=== PATIENT | male | born 1935 | race Caucasian/White ===

== ENCOUNTER 2024-03-02 13:45 | Inpatient (IN) ==
[2024-03-02 14:33] LABS: Basophils # (auto) 0.04 K/uL (0.00-0.20); Basophils % (auto) 0.5 %; Eosinophils # (auto) 0.16 K/uL (0.00-0.50); Eosinophils % (auto) 2.1 %; Hematocrit (blood only) 39.2 % (42.0-52.0); Hemoglobin 12.8 g/dl (14.0-18.0); Immature Granulocytes # (auto) 0.02 K/uL (0.01-0.20); Immature Granulocytes % (auto) 0.3 %; Lymphocytes % (auto) 21.9 %; Mean Corpuscular Hemoglobin 30.3 pg (25.0-34.0); Mean Corpuscular Hgb Conc 32.7 g/dL (32.0-36.0); Mean Corpuscular Volume 92.9 fL (80.0-100.0); Mean Platelet Volume 11.8 fL (9.4-12.4); Monocytes # (auto) 0.55 K/uL (0.11-0.59); Monocytes % (auto) 7.1 %; Neutrophils # (auto) 5.29 K/uL (1.40-6.50); Neutrophils % (auto) 68.1 %; Platelet Count 154 K/uL (130-400); RDW Coefficient of Variation 14.7 % (11.5-14.5); RDW Standard Deviation 50.2 fL (36.4-46.3); Red Blood Count 4.22 M/uL (4.70-6.10); White Blood Count 7.76 K/ul (4.8-10.8)
[2024-03-02 14:47] LABS: Partial Thromboplastin Ratio 0.9; Partial Thromboplastin Time 24 Seconds (21-31); Prothrombin Time 10.9 Seconds (9.0-12.0)
[2024-03-02] MEDS: SODIUM CHLORIDE 0.9% 500 ML IV ONE (14:49)
[2024-03-02 14:55] LABS: Alanine Aminotransferase 17 U/L (7-52); Albumin Globulin Ratio 1.5 (0.9-2); Alkaline Phosphatase 98 U/L (34-104); Anion Gap 7 (3-11); Aspartate Aminotransferase 19 U/L (13-39); BUN Creatinine Ratio 26.5 (10-20); Bilirubin,Total 0.7 mg/dl (0.2-1.0); Blood Urea Nitrogen 36 mg/dl (6-23); Calcium 9.5 mg/dl (8.6-10.3); Carbon Dioxide 27 mmol/L (21-32); Chloride 104 mmol/L (98-107); Est GFR (African American) 53.8 ml/min; Est GFR (Non-African American) 46.5 ml/min; Globulin 2.6 gm/dl (2.5-4.0); Glucose 95 mg/dl (70-99(Fasting)); Potassium 4.5 mmol/L (3.5-5.1); Sodium 138 mmol/L (136-145); Total Protein 6.6 gm/dl (6.0-8.3)
[2024-03-02 15:00] LABS: Troponin I High Sensitivity 17.7 pg/ml (0-20)
--- NOTE | 2024-03-02 15:02 | XRay Report ---
XR chest 1V not portable HISTORY: Chest pain, nonspecific COMPARISON: Chest 03/12/2023. FINDINGS: No pneumothorax. No pleural effusions. There are low lung volumes. The heart remains mildly enlarged. Left-sided pacemaker poststernotomy changes, and a cardiac valve prosthesis are again note d. There is a tortuous and calcified thoracic aorta. There is mild central pulmonary vascular congest ion without overt edema. A few bibasilar linear densities favor subsegmental atelectasis. Otherwise, no focal lung consolidations to suggest a pneumonia. There are old bilateral rib fractures. IMPRESSION: Cardiomegaly and mild congestive change. ACT 112: Negative or not required by law. Electronically signed by: Jesus Lopez M.D. 03/02/2024 3:01 PM
[2024-03-02] MEDS: OPTIRAY 320 125ml IV ONE (15:14)
[2024-03-02 15:39] LABS: Appearance Urine Clear (Clear); Bilirubin Urine Negative (Negative); Blood Urine Negative (Negative); Color Urine Yellow; Glucose Urine UA Negative (Negative); Ketones Urine Negative (Negative); Leukocyte Esterase Urine Negative (Negative); Nitrite Urine Negative (Negative); Protein Urine Negative (Negative); Specific Gravity Urine 1.022 (1.000-1.030); Urobilinogen Urine Negative (Negative); pH Urine 5.5 (4.5-7.5)
--- NOTE | 2024-03-02 15:44 | CT Scan Report ---
CT ANGIOGRAPHY OF THE CHEST, PULMONARY EMBOLUS PROTOCOL CLINICAL HISTORY: Shortness of breath. Back pain. COMPARISON STUDY: Chest CT February 12, 2022. Chest radiograph performed earlier today. TECHNIQUE: Following IV administration of 118 mL of Optiray, helical axial images of the chest were o btained utilizing the pulmonary embolus protocol. Maximal intensity projections and sagittal and cor onal reformats were viewed on an independent 3D workstation. IV contrast was administered without co mplication. Automated exposure control was utilized for the study. A dose lowering technique was ut ilized adhering to the principles of ALARA. CT DOSE: 846.87 mGy.cm FINDINGS: No pulmonary emboli are identified. Moderate cardiomegaly and extensive coronary artery ca lcification are again noted. There are mediastinal wires and postoperative findings from bypass graft ing as well as a aortic valve prosthesis. 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 Opacification of the thoracic aorta is suboptimal however there is no de finite evidence for dissection. There is no pneumothorax or pleural effusion. There is no consolidati on to suggest pneumonia. There are no suspicious pulmonary nodules. Old bilateral rib fractures are p resent. There are no acute thoracic spine fractures. Visualized portions of the upper abdomen are unr emarkable. IMPRESSION: 1. No pulmonary emboli identified. 2. No acute intrathoracic findings. 3. 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 Thoracic aortic opacification suboptimal b ut no dissection identified. ACT 112: Negative or not required by law. Electronically signed by: Jesse Rock M.D. 03/02/2024 3:42 PM
--- NOTE | 2024-03-02 15:57 | Emergency Department Note ---
Impression & Plan New onset a-fib, SOB (shortness of breath), Elevated brain natriuretic peptide (BNP) level ED Provider Note NAME: MONY Kami MENA AGE: 88 SEX: M : 1935 ARRIVES VIA: Walk-In INFORMANT: Patient ED PROVIDER(S): Salazar Vizcarra DO CHIEF COMPLAINT: shortness of breath HPI: Patient is an 88-year-old male with a past medical history of a CABG, TAVR who presents to the ER for shortness of breath. He notes that shortness of breath has been getting worse over the past 4 days. He intermittently gets pain between his scapulas and his upper back. He notes this last for a minute or 2. He denies any chest pain at that time. It improves with twisting turning and bending. He notes stretching also helps it. Family who is present at bedside provides additional history and notes his blood pressure has been in the low 90s to 80s at home intermittently. They been working with his metoprolol and initially decreased the dose and then eventually stopped it. He restarted as his heart rate started racing 2 days ago. He did take a dose today and was only taking half dose at 12.5. He is having trouble controlling his rate and managing his pressures. He denies any dysuria urgency or frequency. No fevers. No other exacerbating or remitting factors. ADDITIONAL HISTORY OBTAINED: Per HPI Chronic Medical/Social Conditions Affecting Care: Per HPI PAST MEDICAL HISTORY:See Below PAST SURGICAL HISTORY:See Below FAMILY HISTORY:See Below SOCIAL HISTORY:See Below HOME MEDICATIONS:See Below ALLERGIES:See Below VITALS:See Below PHYSICAL EXAMINATION: GENERAL: Sitting up in bed, alert, well appearing, well nourished, no distress, non-toxic EYE EXAM: normal conjunctiva. OROPHARYNX: mucous membranes are moist LUNGS: Clear to auscultation. Normal chest wall mechanics HEART: no murmurs, S1 normal and S2 normal ABDOMEN: abdomen soft, non-tender, normo-active bowel sounds, no masses, no rebound or guarding. UPPER EXTREMITIES: upper extremities are grossly normal. LOWER EXTREMITIES: No pitting edema. NEURO EXAM: Normal sensorium, cranial nerves II-XII grossly intact, normal speech, no gross weakness of arms, no gross weakness of legs. MEDICAL DECISION MAKING: Patient is an 88-year-old male with a past medical history of a CABG, TAVR who presents to the ER for the above-stated complaint. IV was established blood was obtained. Labs show no significant leukocytosis or anemia. INR unremarkable. BMP low with LFTs, bilirubin, and troponin was negative. BNP was elevated at 600. UA was clean. Patient was given a bolus of IV fluids while in the ER. EKG does appear to be consistent with new onset A-fib. Rate was fairly controlled with a heart rate in the low 100s to 90s. Do favor this the likely cause of the new onset shortness of breath. Discussed case with the hospitalist for further evaluation management treatment. Consults/Care Managements Discussions: Per MDM Triage Nursing notes reviewed. Limited review of prior medical records performed Vital Signs: reviewed and remarkable for no significant abnormalities Differential diagnosis: Differential diagnoses includes but is not limited to pneumonia, bronchitis, COPD/Asthma exacerbation, pneumothorax, pulmonary embolism, congestive heart failure, acute coronary syndrome ER treatment provided: See below Diagnostics interpreted by me include EKG and cardiac monitoring as listed below: -Cardiac Monitoring: An order was placed for continuous cardiac monitoring. The monitor shows a rate of 101 with sinus rhythm. -ECG: A-fib rate of 111 Left axis No PVCs QTc 470 -Laboratory studies:Interpreted by me as stated above in MDM and shown below. Imaging studies: Xrays: As interpreted by me: Portable AP upright 1 view of the chest shows no focal infiltrate CTs show: CT angio the chest shows no PE Procedures:none Critical Care: None Past Med/Surg History Problem List Elevated brain natriuretic peptide (BNP) level (Acute) New onset a-fib (Acute) Heme positive stool Encounter for colonoscopy due to history of adenomatous colonic polyps Encounter for pre-operative examination Encounter for pre-operative examination Ambulatory dysfunction (Acute) Chest pain (Acute) Dehydration (Acute) Near syncope (Acute) Palpitations (Acute) SOB (shortness of breath) (Acute 09/05/14) DVT prophylaxis Full code status T2DM (type 2 diabetes mellitus) (Chronic) Depression (Chronic) 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; also reconstruction of aortic root and ascending aorta due to Aortic Regurgitation History of radical prostatectomy (Chronic) History of cataract extraction (Chronic) bilt History of colonoscopy with polypectomy (Chronic) 2016 --> due for repeat in 3 years CAD (coronary artery disease), [place] coronary artery (Chronic) s/p CABG ARREDONDO to LAD; Saphenous graft to Circumflex marginal done in 2001 [facility] [place] Prostate CA (Chronic) 2003 HLD (hyperlipidemia) (Chronic) History of heart bypass surgery (Chronic) s/p CABG ARREDONDO to LAD; Saphenous graft to Circumflex marginal done in 2001 [facility] [place] Medical History (Updated 03/02/24 @ 16:23 by Salazar Vizcarra DO) Osteoarthritis Hearing deficit Transient ischemic attack (TIA) shown on MRI's---didn't know he had them, no deficits, no neurologist Hypertension Cardiac murmur Wheezing intermittent--inhaler prn Surgical History 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 History of left inguinal hernia repair History of prostate biopsy malignant History of tooth extraction History of tonsillectomy and adenoidectomy History of cardiac cath x3--last 2013--no stents History of angioplasty 1988 Family History Father Liver cancer Colon cancer Coronary heart disease Myocardial infarction Hypertension Heart disease Brother Coronary heart disease Stroke Heart disease Brother Coronary heart disease Family history of diabetes mellitus Colon cancer Brother Coronary heart disease Other No family history of adverse response to anesthesia No family history of bleeding disorder Social History Smoking Status: Never smoker Tobacco Type: Cigarettes Cigarettes Per Day: 10; Second Hand Exposure: No; Do You Dip or Chew Tobacco: No; Hx Alcohol Use: No Hx Substance Use: No Preferred Language: Thai Communication Ability: Effective Hearing Ability: 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 of 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 Aid 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 Beliefs That Will Affect Care: None marital status: Current Living Situation: Alone current occupational status: retired Feels Safe at Home: Yes Assistive Devices: Denture - Upper, Denture - Lower, Glasses and Hearing Aid - Bilateral Allergies Allergies Allergy/AdvReac Type Severity Reaction Status Date / Time Penicillins Allergy Mild leg Verified 10/21/23 11:47 swelling Home Meds Home Medications Medication Instructions Recorded Confirmed atorvastatin 80 mg tablet 80 mg PO HS 04/27/18 03/02/24 bupropion HCl 150 mg tablet,12 hr 150 mg PO Q12 04/27/18 03/02/24 sustained-release metformin 500 mg tablet 500 mg PO QAM 04/27/18 03/02/24 multivitamin 1 tab PO QAM 04/27/18 03/02/24 albuterol sulfate 90 mcg/actuation 2 puff inhalation Q4 PRN Wheezing 04/03/19 03/02/24 aerosol inhaler (ProAir HFA) diphenhydramine HCl 25 mg capsule 25 mg PO HS PRN Sleep 04/03/19 03/02/24 (Benadryl) furosemide 20 mg tablet 40 mg PO DAILY 04/03/19 03/02/24 aspirin 81 mg chewable tablet 81 mg PO DAILY 02/12/22 03/02/24 (Children's Aspirin) clindamycin HCl 300 mg capsule 600 mg PO ONCE PRN Prophylaxis 02/12/22 03/02/24 cyanocobalamin (vitamin B-12) 1,000 mcg sublingual DAILY 02/12/22 03/02/24 1,000 mcg sublingual tablet metoprolol succinate 25 mg 12.5 mg PO DAILY 02/12/22 03/02/24 tablet,extended release 24 hr iron,carbonyl 65 mg-vitamin C 125 1 tab PO .EVERY OTHER DAY 04/20/22 03/02/24 mg tablet,delayed release (Vitron-C) apixaban 5 mg tablet (Eliquis) 5 mg PO UD 03/02/24 03/02/24 doxycycline hyclate 100 mg capsule 100 mg PO BID 03/02/24 03/02/24 levothyroxine 25 mcg tablet 25 mcg PO HS 03/02/24 03/02/24 potassium chloride 20 mEq 20 meq PO QAM 03/02/24 03/02/24 tablet,extended release Results & Data (ED) Vital Signs Vital Signs - 24 hr 03/02/24 13:50 03/02/24 13:55 03/02/24 15:27 Temperature 36.7 C Temperature Source Temporal Artery Scan Pulse Rate 106 H 101 H Respiratory Rate 18 Respiratory Effort / Characteristics Non-Labored Spontaneous Short of Breath SOB on Exertion Respiratory Depth Normal Blood Pressure 107/70 Blood Pressure Mean 82 Blood Pressure Position Sitting Pulse Oximetry 95 Oxygen Delivery Method Room Air Sepsis Recent Fever Within 48 Hours No Sepsis New/Unexplained Change in Mental Status N/A Sepsis Action Taken by Nursing No Action Required Laboratory Data 03/02/24 13:08 03/02/24 13:08 Lab Results 03/02/24 03/02/24 Range/Units 13:08 14:49 WBC 7.76 (4.8-10.8) K/ul RBC 4.22 L (4.70-6.10) M/uL Hgb 12.8 L (14.0-18.0) g/dl Hct 39.2 L (42.0-52.0) % MCV 92.9 (80.0-100.0) fL MCH 30.3 (25.0-34.0) pg MCHC 32.7 (32.0-36.0) g/dL RDW Std Deviation 50.2 H (36.4-46.3) fL RDW Coeff of Adriel 14.7 H (11.5-14.5) % Plt Count 154 (130-400) K/uL MPV 11.8 (9.4-12.4) fL Immature Gran % (Auto) 0.3 % Neut % (Auto) 68.1 % Lymph % (Auto) 21.9 % [place] % (Auto) 7.1 % Eos % (Auto) 2.1 % Baso % (Auto) 0.5 % Neut # (Auto) 5.29 (1.40-6.50) K/uL Lymph # (Auto) 1.70 (1.20-3.40) K/uL [place] # (Auto) 0.55 (0.11-0.59) K/uL Eos # (Auto) 0.16 (0.00-0.50) K/uL Baso # (Auto) 0.04 (0.00-0.20) K/uL Immature Gran # (Auto) 0.02 (0.01-0.20) K/uL PT 10.9 (9.0-12.0) Seconds INR 1.0 (0.9-1.1) APTT 24 (21-31) Seconds PTT Ratio 0.9 Sodium 138 (136-145) mmol/L Potassium 4.5 (3.5-5.1) mmol/L Chloride 104 (98-107) mmol/L Carbon Dioxide 27 (21-32) mmol/L Anion Gap 7 (3-11) BUN 36 H (6-23) mg/dl Creatinine 1.36 (0.6-1.4) mg/dl Est Cr Clr Drug Dosing Not Reportable Est GFR ( Amer) 53.8 ml/min Est GFR (Non-Af Amer) 46.5 ml/min BUN/Creatinine Ratio 26.5 H (10-20) Glucose 95 (70-99(Fasting)) mg/dl Calcium 9.5 (8.6-10.3) mg/dl Total Bilirubin 0.7 (0.2-1.0) mg/dl AST 19 (13-39) U/L ALT 17 (7-52) U/L Alkaline Phosphatase 98 (34-104) U/L Troponin I High Sens 17.7 (0-20) pg/ml B-Natriuretic Peptide 603 H (0-100) pg/ml Total Protein 6.6 (6.0-8.3) gm/dl Albumin 4.0 (3.4-5.0) gm/dl Globulin 2.6 (2.5-4.0) gm/dl Albumin/Globulin Ratio 1.5 (0.9-2) Urine Color Yellow Urine Appearance Clear (Clear) Urine pH 5.5 (4.5-7.5) Ur Specific [place] 1.022 (1.000-1.030) Urine Protein Negative (Negative) Urine Glucose (UA) Negative (Negative) Urine Ketones Negative (Negative) Urine Blood Negative (Negative) Urine Nitrite Negative (Negative) Urine Bilirubin Negative (Negative) Urine Urobilinogen Negative (Negative) Ur Leukocyte Esterase Negative (Negative) Administered Medications Discontinued Medications Sodium Chloride (Nss) 500 mls @ 999 mls/hr IV .Q31M ONE Stop: 03/02/24 15:11 Last Infusion: 03/02/24 15:24 Dose: Infused Documented By: Admin: 03/02/24 14:49 Dose: 999 mls/hr Documented By: SANTOS Ioversol (Optiray 320 125ml) 118 ml IV ONCE ONE Stop: 03/02/24 15:15 Last Admin: 03/02/24 15:14 Dose: 118 ml Documented By: CELSO Imaging Data Radiologist's Impression: Chest X-Ray 03/02/24 13:55 XR chest 1V not portable HISTORY: Chest pain, nonspecific COMPARISON: Chest 03/12/2023. FINDINGS: No pneumothorax. No pleural effusions. There are low lung volumes. The heart remains mildly enlarged. Left-sided pacemaker poststernotomy changes, and a cardiac valve prosthesis are again noted. There is a tortuous and calcified thoracic aorta. There is mild central pulmonary vascular congestion without overt edema. A few bibasilar linear densities favor subsegmental atelectasis. Otherwise, no focal lung consolidations to suggest a pneumonia. There are old bilateral rib fractures. IMPRESSION: Cardiomegaly and mild congestive change. ACT 112: Negative or not required by law. Electronically signed by: Jesus Lopez M.D. 03/02/2024 3:01 PM Chest CTA 03/02/24 14:07 CT ANGIOGRAPHY OF THE CHEST, PULMONARY EMBOLUS PROTOCOL CLINICAL HISTORY: Shortness of breath. Back pain. COMPARISON STUDY: Chest CT February 12, 2022. Chest radiograph performed earlier today. TECHNIQUE: Following IV administration of 118 mL of Optiray, helical axial images of the chest were obtained utilizing the pulmonary embolus protocol. Maximal intensity projections and sagittal and coronal reformats were viewed on an independent 3D workstation. IV contrast was administered without complication. Automated exposure control was utilized for the study. A dose lowering technique was utilized adhering to the principles of ALARA. CT DOSE: 846.87 mGy.cm FINDINGS: No pulmonary emboli are identified. Moderate cardiomegaly and extensive coronary artery calcification are again noted. There are mediastinal wires and postoperative findings from bypass grafting as well as a aortic valve prosthesis. 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 Opacification of the thoracic aorta is suboptimal however there is no definite evidence for dissection. There is no pneumothorax or pleural effusion. There is no consolidation to suggest pneumonia. There are no suspicious pulmonary nodules. Old bilateral rib fractures are present. There are no acute thoracic spine fractures. Visualized portions of the upper abdomen are unremarkable. IMPRESSION: 1. No pulmonary emboli identified. 2. No acute intrathoracic findings. 3. 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 Thoracic aortic opacification suboptimal but no dissection identified. ACT 112: Negative or not required by law. Electronically signed by: Jesse Rock M.D. 03/02/2024 3:42 PM Discharge Plan Visit Data Chief Complaint: Cardiac Assessment Stated Complaint: SOB, LOW BP, HIGH HEART RATE,INTERMITNT CHEST PAIN ED Provider: Salazar Vizcarra Discharge Problem: New onset a-fib, SOB (shortness of breath), Elevated brain natriuretic peptide (BNP) level Forms Stand Alone Forms: [facility] Prescriptions Prescriptions: No Action Vitron-C 65 mg iron- 125 mg tablet,delayed release (DR/EC) 1 tab PO .EVERY OTHER DAY diphenhydramine HCl [Benadryl] 25 mg Capsule 25 mg PO HS PRN (Reason: Sleep) furosemide 20 mg Tablet 40 mg PO DAILY albuterol sulfate [ProAir HFA] 90 mcg/actuation Hfa Aerosol Inhaler 2 puff INHALATION Q4 PRN (Reason: Wheezing) multivitamin Tablet 1 tab PO QAM metformin 500 mg tablet 500 mg PO QAM bupropion HCl 150 mg tablet sustained-release 12 hr 150 mg PO Q12 atorvastatin 80 mg tablet 80 mg PO HS aspirin [Children's Aspirin] 81 mg Tablet,Chewable 81 mg PO DAILY metoprolol succinate 25 mg tablet extended release 24 hr 12.5 mg PO DAILY clindamycin HCl 300 mg capsule 600 mg PO ONCE PRN (Reason: Prophylaxis) Rx Instructions: 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 Has a fill history of 03/01/25 potassium chloride 20 mEq tablet extended release 20 meq PO QAM Referrals Referrals: Mariza Hill MD [Primary Care Provider] -
--- NOTE | 2024-03-02 16:03 | History & Physical Report ---
Date of Service March 02, 2024 Assessment & Plan (1) CAD (coronary artery disease), [place] coronary artery: (2) History of heart bypass surgery: (3) History of aortic valve replacement: (4) HLD (hyperlipidemia): (5) T2DM (type 2 diabetes mellitus): (6) History of radical prostatectomy: Plan This is an 88-year-old male with PMHx of CAD status post bypass with open heart surgery, bovine aortic valve replacement followed by more recent TAVR, AAA measuring 4.5 cm, cardiomegaly, s/p pacemaker with recent detection of atrial fibrillation after interrogation as outpatient. It was noted that one of his episodes lasted over 10 hours. He was also prescribed Eliquis yesterday by cardiology, however the patient had not been made aware of this new prescription. He was also noted that he has been working with PCP to lower the dose of metoprolol XL 25 mg to 12.5 mg daily due to hypotensive episodes which occurred approximately 1 week ago. Other PMHx includes DM type II, history of prostate cancer, depression, anxiety, CKD stage III, history of TIA. A-fib with RVR Status post [place]AVR in 2020 at [facility] [place], [place]. Barragan, ventricular tachycardia requiring defibrillation and brief period of asystole which required pacing, permanent pacemaker implanted 06/26/[address] Rodriguez Chronic diastolic CHF CAD status post bypass x 2, ARREDONDO to LAD, SVG to circumflex during aortic valve replacement in 2000 -Admit to [facility] telemetry - Epic communication reviewed: says pt should Started on Eliquis on 03/01 as pt detected in afib with RVR and was not previously anticoagulated, he was not aware of this yet - Rate controlled on metoprolol succinated, dose decreased from 25 mg daily to 12.5 mg daily 1 week ago due to hypotensive episodes- likely contributing, will discuss with cards regarding another agent for rate control such as amiodarone -Pacemaker battery is at 47%, 2.17 years expected, one episode of afib lasted over 10 hrs. -BNP noted at 603 today, took lasix 40 mg this morning, appears euvolemic, may benefit from small amount of IV lasix if afib has caused mild fluid retention worsening shortness of breath. - Cardiology consulted for further recs for BP control / rate/ anticoagulation- discussed with Dr. Mendosa. Appreciate recommendations. -Recent outpatient echo on 02/23/2024 reviewed showing LVEF of 55%, normal TAVR gradients as per epic Recent tick bite -Was placed on doxycycline on 02/21 for a 1 week course by PCP - would finish course today DM type II -Hold metformin -ISS with Accu-Cheks ACHS -Last A1c 6.5 on 01/19/2024 Hx prostate cancer s/p radical prostatectomy -Chronic, stable DVT ppx: teds, scds, anticoagulation to be ordered Lines: PIV x 1 FEN/GI: HH diet CODE: Full Dispo: From home, likely to remain in the hospital x 1-2 days A total of 75 minutes were spent with greater than 50% of that time face to face with the patient, personally reviewing all current laboratories, imaging studies, past medication reconciliation, outpatient chart review, and discussion with specialists to collaborate care for the patient with attending. Please see attending documentation for corrections and/or additions. History of Present Illness Chief Complaint: Shortness of breath, tachycardia Primary Care Provider: Mariza Hill MD This is an 88-year-old male with PMHx of CAD status post bypass with open heart surgery, bovine aortic valve replacement followed by more recent TAVR, AAA measuring 4.5 cm, cardiomegaly, s/p pacemaker with recent detection of atrial fibrillation after interrogation as outpatient. It was noted that one of his episodes lasted over 10 hours. He was also prescribed Eliquis yesterday by cardiology, however the patient had not been made aware of this new prescription. He was also noted that he has been working with PCP to lower the dose of metoprolol XL 25 mg to 12.5 mg daily due to hypotensive episodes which occurred approximately 1 week ago. At that time of PCP appointment there was no mention of atrial fibrillation, so it is likely that he was in NSR at the time of that dose reduction. Patient states that his main complaint today worsening shortness of breath over the past 1 week. He denies orthopnea. On Wednesday and Wednesday , he did not take metoprolol at all to see if this would help. Then he continued to not feel well, with complaints of having intermittent fleeting retrosternal pain, not associated with shortness of breath, diaphoresis etc. He admits to feeling some intermittent fatigue. Pt denies palpitations, flutter, or other chest pain. He typically ambulates with the use of a cane. Pt lives at home by himself. Daughter, PATRICIA, is present with him at bedside and assists but primarily the patient is his own historian. Other PMHx includes DM type II, history of prostate cancer, depression, anxiety, CKD stage III, history of TIA. Allergies Allergy/AdvReac Type Severity Reaction Status Date / Time Penicillins Allergy Mild leg Verified 10/21/23 11:47 swelling Home Medications Medication Instructions Recorded Confirmed Type atorvastatin 80 mg tablet 80 mg PO HS 04/27/18 03/02/24 History bupropion HCl 150 mg tablet,12 hr 150 mg PO Q12 04/27/18 03/02/24 History sustained-release metformin 500 mg tablet 500 mg PO QAM 04/27/18 03/02/24 History multivitamin 1 tab PO QAM 04/27/18 03/02/24 History albuterol sulfate 90 mcg/actuation 2 puff inhalation Q4 PRN Wheezing 04/03/19 03/02/24 History aerosol inhaler (ProAir HFA) diphenhydramine HCl 25 mg capsule 25 mg PO HS PRN Sleep 04/03/19 03/02/24 History (Benadryl) furosemide 20 mg tablet 40 mg PO DAILY 04/03/19 03/02/24 History aspirin 81 mg chewable tablet 81 mg PO DAILY 02/12/22 03/02/24 History (Children's Aspirin) clindamycin HCl 300 mg capsule 600 mg PO ONCE PRN Prophylaxis 02/12/22 03/02/24 History cyanocobalamin (vitamin B-12) 1,000 mcg sublingual DAILY 02/12/22 03/02/24 History 1,000 mcg sublingual tablet metoprolol succinate 25 mg 12.5 mg PO DAILY 02/12/22 03/02/24 History tablet,extended release 24 hr iron,carbonyl 65 mg-vitamin C 125 1 tab PO .EVERY OTHER DAY 04/20/22 03/02/24 History mg tablet,delayed release (Vitron-C) apixaban 5 mg tablet (Eliquis) 5 mg PO UD 03/02/24 03/02/24 History doxycycline hyclate 100 mg capsule 100 mg PO BID 03/02/24 03/02/24 History levothyroxine 25 mcg tablet 25 mcg PO HS 03/02/24 03/02/24 History potassium chloride 20 mEq 20 meq PO QAM 03/02/24 03/02/24 History tablet,extended release Past Med/Surg History Problem List (Updated 03/02/24 @ 18:14 by Matias Mendosa MD) S/P TAVR (transcatheter aortic valve replacement) Elevated brain natriuretic peptide (BNP) level (Acute) New onset a-fib (Acute) Heme positive stool Encounter for colonoscopy due to history of adenomatous colonic polyps Encounter for pre-operative examination Encounter for pre-operative examination Ambulatory dysfunction (Acute) Chest pain (Acute) Dehydration (Acute) Near syncope (Acute) Palpitations (Acute) SOB (shortness of breath) (Acute 09/05/14) DVT prophylaxis Full code status T2DM (type 2 diabetes mellitus) (Chronic) Depression (Chronic) 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; also reconstruction of aortic root and ascending aorta due to Aortic Regurgitation History of radical prostatectomy (Chronic) History of cataract extraction (Chronic) bilt History of colonoscopy with polypectomy (Chronic) 2016 --> due for repeat in 3 years CAD (coronary artery disease), [place] coronary artery (Chronic) s/p CABG ARREDONDO to LAD; Saphenous graft to Circumflex marginal done in [place] [facility] [place] Prostate CA (Chronic) 2003 HLD (hyperlipidemia) (Chronic) History of heart bypass surgery (Chronic) s/p CABG ARREDONDO to LAD; Saphenous graft to Circumflex marginal done in 2001 [facility] [place] Medical History (Updated 03/02/24 @ 16:23 by Salazar Vizcarra DO) Osteoarthritis Hearing deficit Transient ischemic attack (TIA) shown on MRI's---didn't know he had them, no deficits, no neurologist Hypertension Cardiac murmur Wheezing intermittent--inhaler prn Surgical History (Updated 03/02/24 @ 18:14 by Matias Mendosa MD) 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 History of left inguinal hernia repair History of prostate biopsy malignant History of tooth extraction History of tonsillectomy and adenoidectomy History of cardiac cath x3--last 2013--no stents History of angioplasty 1988 Family History Father Liver cancer Colon cancer Coronary heart disease Myocardial infarction Hypertension Heart disease Brother Coronary heart disease Stroke Heart disease Brother Coronary heart disease Family history of diabetes mellitus Colon cancer Brother Coronary heart disease Other No family history of adverse response to anesthesia No family history of bleeding disorder Social History Smoking Status: Never smoker Tobacco Type: Cigarettes Cigarettes Per Day: 10; Second Hand Exposure: No; Do You Dip or Chew Tobacco: No; Hx Alcohol Use: No Hx Substance Use: No Preferred Language: Moldovan Communication Ability: Effective Hearing Ability: Use of Hearing Aid Referral Nurse Required: No Beliefs That Will Affect Care: Adventism marital status: Current Living Situation: Alone current occupational status: retired Other Information That Helps Us Care for You: No Feels Safe at Home: Yes Safety Concerns: Feels Safe At This Time Assistive Devices: Crutches, Denture - Lower, Hearing Aid - Bilateral and Walker Assistive Devices Comment: DENTURES NOT WITH PATIENT Review of Systems Review of Systems: Constitutional: No fever, sweats or chills Eyes: No diplopia, no worsening or blurred vision ENT: normal hearing, wearing hearing aids, no trouble swallowing Respiratory: No cough, sputum, dyspnea at rest or on exertion Cardiovascular: + retrosternal cp as per HPI, otherwise No current chest pain, tightness or palpitations Abdomen: No pain, nausea, vomiting, diarrhea or constipation Musculoskeletal: No joint pain, calf pain, +trace RLE swelling compared to the left Neurologic: No weakness, numbness/tingling, or balance problems Psychiatric: No anxiety or depression Skin: No rash or itch Physical Exam Physical Exam: General: awake, alert, no apparent distress, elderly white male, sitting up at bedside Head: Normocephalic, atraumatic ENT: PERRL, EOMI, no pharyngeal exudate, mucous membranes moist Chest: Clear to auscultation, on room air, no adventitious breath sounds Cardiac:irregularly irregular, HR in 110-120 seated at bedside, + systolic murmur, no JVD, normal peripheral pulses, good capillary refill Abdominal: NABS x 4 quadrants, soft, nondistended, nontender to palpation, no rebound or guarding Extremities: Normal inspection, + trace peripheral edema RLE compared to the left, no erythema, calfs nontender to palpation Psych: Normal mood and affect Neuro: AAO x 3, strength intact bilaterally and rated 5/5, no motor deficits, speech is clear, no peripheral sensory deficits Results & Data Results & Data Vital Signs (Past 12 Hours) Vital Signs Temp Pulse Resp BP Pulse Ox O2 Del Method 03/02/24 15:27 101 H 03/02/24 13:50 36.7 C 106 H 18 107/70 95 Room Air Laboratory Results 03/02/24 03/02/24 14:49 13:08 WBC 7.76 RBC 4.22 L Hgb 12.8 L Hct 39.2 L MCV 92.9 MCH 30.3 MCHC 32.7 RDW Std Deviation 50.2 H RDW Coeff of Adriel 14.7 H Plt Count 154 MPV 11.8 Immature Gran % (Auto) 0.3 Neut % (Auto) 68.1 Lymph % (Auto) 21.9 [place] % (Auto) 7.1 Eos % (Auto) 2.1 Baso % (Auto) 0.5 Neut # (Auto) 5.29 Lymph # (Auto) 1.70 [place] # (Auto) 0.55 Eos # (Auto) 0.16 Baso # (Auto) 0.04 Immature Gran # (Auto) 0.02 PT 10.9 INR 1.0 APTT 24 PTT Ratio 0.9 Sodium 138 Potassium 4.5 Chloride 104 Carbon Dioxide 27 Anion Gap 7 BUN 36 H Creatinine 1.36 Est Cr Clr Drug Dosing Not Reportable Est GFR ( Amer) 53.8 Est GFR (Non-Af Amer) 46.5 BUN/Creatinine Ratio 26.5 H Glucose 95 Calcium 9.5 Total Bilirubin 0.7 AST 19 ALT 17 Alkaline Phosphatase 98 Troponin I High Sens 17.7 B-Natriuretic Peptide 603 H Total Protein 6.6 Albumin 4.0 Globulin 2.6 Albumin/Globulin Ratio 1.5 Urine Color Yellow Urine Appearance Clear Urine pH 5.5 Ur Specific [place] 1.022 Urine Protein Negative Urine Glucose (UA) Negative Urine Ketones Negative Urine Blood Negative Urine Nitrite Negative Urine Bilirubin Negative Urine Urobilinogen Negative Ur Leukocyte Esterase Negative Diagnostic Findings Chest X-Ray 03/02/24 13:55 XR chest 1V not portable HISTORY: Chest pain, nonspecific COMPARISON: Chest 03/12/2023. FINDINGS: No pneumothorax. No pleural effusions. There are low lung volumes. The heart remains mildly enlarged. Left-sided pacemaker poststernotomy changes, and a cardiac valve prosthesis are again noted. There is a tortuous and calcified thoracic aorta. There is mild central pulmonary vascular congestion without overt edema. A few bibasilar linear densities favor subsegmental atelectasis. Otherwise, no focal lung consolidations to suggest a pneumonia. There are old bilateral rib fractures. IMPRESSION: Cardiomegaly and mild congestive change. ACT 112: Negative or not required by law. Electronically signed by: Jesus Lopez M.D. 03/02/2024 3:01 PM Chest CTA 03/02/24 14:07 CT ANGIOGRAPHY OF THE CHEST, PULMONARY EMBOLUS PROTOCOL CLINICAL HISTORY: Shortness of breath. Back pain. COMPARISON STUDY: Chest CT February 12, 2022. Chest radiograph performed earlier today. TECHNIQUE: Following IV administration of 118 mL of Optiray, helical axial images of the chest were obtained utilizing the pulmonary embolus protocol. Maximal intensity projections and sagittal and coronal reformats were viewed on an independent 3D workstation. IV contrast was administered without complication. Automated exposure control was utilized for the study. A dose lowering technique was utilized adhering to the principles of ALARA. CT DOSE: 846.87 mGy.cm FINDINGS: No pulmonary emboli are identified. Moderate cardiomegaly and extensive coronary artery calcification are again noted. There are mediastinal wires and postoperative findings from bypass grafting as well as a aortic valve prosthesis. 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 Opacification of the thoracic aorta is suboptimal however there is no definite evidence for dissection. There is no pneumothorax or pleural effusion. There is no consolidation to suggest pneumonia. There are no suspicious pulmonary nodules. Old bilateral rib fractures are present. There are no acute thoracic spine fractures. Visualized portions of the upper abdomen are unremarkable. IMPRESSION: 1. No pulmonary emboli identified. 2. No acute intrathoracic findings. 3. 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 Thoracic aortic opacification suboptimal but no dissection identified. ACT 112: Negative or not required by law. Electronically signed by: Jesse Rock M.D. 03/02/2024 3:42 PM Code Status & VTE Plan Code Status Full code - discussed with patient at bedside Supervising Physician Co-Signing Physician Notes Patient was seen and examined independently at bedside. Chart reviewed. Case discussed with Nicole DOWELL and agree with the documentation above. In summary, this is a 88 year old male who is being admitted for new onset symptomatic A fib. Seen by cardio and is started on iv amio drip and IV heparin drip. Further management of A fib per cardiology. He feels fine during my encounter. On exam, sitting in bed, AAO, chest clear, heart irregular, abd benign, trace LE edema. Rest as per the note above.
[2024-03-02] MEDS ORDERED: 0.2 MICRON FILTER SET 1 EACH IV ONE (17:53)
[2024-03-02] MEDS ORDERED: GLUCOSE 10 TAB/TUBE PO PRN (17:57)
[2024-03-02] MEDS ORDERED: CARBOHYDRATES FOR HYPOGLYCEMIA PO PRN (17:57)
[2024-03-02] MEDS ORDERED: DEXTROSE 50% 50 ML SYRINGE IV PRN (17:57)
[2024-03-02] MEDS ORDERED: ONDANSETRON INJ 2 MG/ML 2 ML VIAL IV PRN (17:57)
[2024-03-02] MEDS ORDERED: GLUCOSE 40% GEL 15 GM TUBE PO PRN (17:57)
[2024-03-02] MEDS ORDERED: ACETAMINOPHEN 325 MG TAB PO PRN (17:57)
[2024-03-02] MEDS ORDERED: GLUCAGON FOR INJ 1 MG VIAL SQ PRN (17:57)
[2024-03-02] MEDS ORDERED: NON-FORMULARY MEDICATION (Iron,Carbonyl-Vitamin C [Vitron-C] 65 mg iron- 125 mg tablet,del PO SCH (18:00)
--- NOTE | 2024-03-02 18:00 | Cardiology Consultation ---
Date of Consultation March 02, 2024 Assessment & Plan (1) New onset a-fib: (2) S/P TAVR (transcatheter aortic valve replacement): (3) History of aortic valve replacement: (4) CAD (coronary artery disease), [place] coronary artery: (5) HLD (hyperlipidemia): Plan 88-year-old male with complex cardiac history presents with generalized concerns of recent fatigue and declining functional capacity. Pacer interrogation reveals short runs of atrial fibrillation in the past with sustained atrial fibrillation since morning of 02/29/2024. Atrial fibrillation rates are mild to moderately elevated 110-120 bpm. Patient not aware of tachypalpitations but does feel more fatigued as noted. Extensive evaluation outpatient and patient noted 1. New onset atrial fibrillation with prior salvos of paroxysmal atrial fibrillation briefly on prior pacemaker interrogations. Duration greater than 48 hours on presentation. Discussed in detail with patient and daughter (nurse). Prior metoprolol discontinued due to relative hypotension. Options of management discussed will initiate IV then oral amiodarone. Daily EKG. Anticoagulation with IV heparin initially. Discussed potential risk of conversion to sinus rhythm with inherent risk of stroke. Anticoagulation begun due to concern with IV heparin with plans to transition long-term to oral regimen post discharge Will maintain on telemetry at least 24 to 48 hours BNP likely elevated secondary to elevated ventricular rates with underlying valvular heart disease, ischemic heart disease Pacemaker present eliminates concerns regarding bradycardia arrhythmia Patient and daughter in agreement to plan History of Present Illness Reason for Consultation: Atrial fibrillation with elevated ventricular response rate [facility] Attending [facility]: Dr. Garvin History of Present Illness Patient is an 88-year-old male with complex cardiac history which includes 1. CAD, status post CABG x2- arredondo to LAD, SVG to circumflex during AVR 2000 2. Valvular heart disease, status post open AVR with root reconstruction and coronary bypass in 2000 a. Severe prosthetic aortic valve stenosis, status post TAVR (26 mm CoreValve inside of old surgical valve) 06/24/2021 at [facility] with Dr. Barragan, patient experienced ventricular tachycardia requiring defibrillation and a brief period of asystole which required pacing- permanent pacemaker implanted 06/26/[address] Rodriguez. b. Moderate mitral regurgitation 3. History of TIA 12/2020 4. Type 2 diabetes 5. Hyperlipidemia, LDL goal below 70 6. History of prostate cancer status post radical prostatectomy 7. Chronic diastolic CHF, NYHA class 8. 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 Patient seen in outpatient setting by PCP approximately 1 week ago with symptoms of generalized fatigue and dizziness with low blood pressures observed at home. Patient not specifically symptomatic with low blood pressure but concerning per patient and daughter. Metoprolol succinate reduced from 25 mg to 12.5 mg p.o. daily then ultimately stopped by patient. Laboratory studies notable for positive IgG Lyme study but negative IgM in the interim was treated with doxycycline. Echocardiogram revealed no acute changes with normally functioning aortic valve prosthesis and preserved LV function, moderate left atrial dilatation Routine pacemaker interrogation on 02/29/2024 demonstrated short salvos of atrial fibrillation followed by sustained atrial fibrillation Heart rate noted to be elevated at home with lower blood pressures and patient brought to the ER for further evaluation Patient not aware of tachypalpitations Does admit to some fatigue as well as mild breathlessness with activity. No cough or shortness of breath No bleeding issues No neurologic complaint No edema or orthopnea though feels somewhat breathlessness when lying flat in the ER exam room On ER presentation patient in atrial fibrillation with elevated ventricular response rate. CTA of chest performed due to intermittent back discomfort and scapular pain revealed no acute processes with stable thoracic aortic aneurysm. Referred now for further evaluation and treatment. Allergies Allergy/AdvReac Type Severity Reaction Status Date / Time Penicillins Allergy Mild leg Verified 10/21/23 11:47 swelling Home Medications Medication Instructions Recorded Confirmed Type atorvastatin 80 mg tablet 80 mg PO HS 04/27/18 03/02/24 History bupropion HCl 150 mg tablet,12 hr 150 mg PO Q12 04/27/18 03/02/24 History sustained-release metformin 500 mg tablet 500 mg PO QAM 04/27/18 03/02/24 History multivitamin 1 tab PO QAM 04/27/18 03/02/24 History albuterol sulfate 90 mcg/actuation 2 puff inhalation Q4 PRN Wheezing 04/03/19 03/02/24 History aerosol inhaler (ProAir HFA) diphenhydramine HCl 25 mg capsule 25 mg PO HS PRN Sleep 04/03/19 03/02/24 History (Benadryl) furosemide 20 mg tablet 40 mg PO DAILY 04/03/19 03/02/24 History aspirin 81 mg chewable tablet 81 mg PO DAILY 02/12/22 03/02/24 History (Children's Aspirin) clindamycin HCl 300 mg capsule 600 mg PO ONCE PRN Prophylaxis 02/12/22 03/02/24 History cyanocobalamin (vitamin B-12) 1,000 mcg sublingual DAILY 02/12/22 03/02/24 History 1,000 mcg sublingual tablet metoprolol succinate 25 mg 12.5 mg PO DAILY 02/12/22 03/02/24 History tablet,extended release 24 hr iron,carbonyl 65 mg-vitamin C 125 1 tab PO .EVERY OTHER DAY 04/20/22 03/02/24 History mg tablet,delayed release (Vitron-C) apixaban 5 mg tablet (Eliquis) 5 mg PO UD 03/02/24 03/02/24 History doxycycline hyclate 100 mg capsule 100 mg PO BID 03/02/24 03/02/24 History levothyroxine 25 mcg tablet 25 mcg PO HS 03/02/24 03/02/24 History potassium chloride 20 mEq 20 meq PO QAM 03/02/24 03/02/24 History tablet,extended release Patient History Medical History (Updated 03/02/24 @ 16:23 by Salazar Vizcarra DO) Osteoarthritis Hearing deficit Transient ischemic attack (TIA) shown on MRI's---didn't know he had them, no deficits, no neurologist Hypertension Cardiac murmur Wheezing intermittent--inhaler prn Surgical History (Updated 03/02/24 @ 18:14 by Matias Mendosa MD) 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 History of left inguinal hernia repair History of prostate biopsy malignant History of tooth extraction History of tonsillectomy and adenoidectomy History of cardiac cath x3--last 2013--no stents History of angioplasty 1988 Family History Father Liver cancer Colon cancer Coronary heart disease Myocardial infarction Hypertension Heart disease Brother Coronary heart disease Stroke Heart disease Brother Coronary heart disease Family history of diabetes mellitus Colon cancer Brother Coronary heart disease Other No family history of adverse response to anesthesia No family history of bleeding disorder Social History Smoking Status: Never smoker Tobacco Type: Cigarettes Cigarettes Per Day: 10; Second Hand Exposure: No; Do You Dip or Chew Tobacco: No; Hx Alcohol Use: No Hx Substance Use: No Preferred Language: Cypriot Communication Ability: Effective Hearing Ability: Use of Hearing Aid Transitional Nurse Required: No Beliefs That Will Affect Care: None marital status: Current Living Situation: Alone current occupational status: retired Feels Safe at Home: Yes Assistive Devices: Denture - Upper, Denture - Lower, Glasses and Hearing Aid - Bilateral Review of Systems Review of Systems: All systems reviewed & are unremarkable except as noted in HPI & below Physical Exam Constitutional: no acute distress Eyes: PERRL, conjunctivae normal, anicteric sclerae ENMT: external ear and nose normal, oropharynx normal Neck: trachea midline, no thyromegaly Respiratory: no labored breathing Auscultation: + crackles (Right base) Cardiovascular: Rate/Rhythm: + tachycardic and + irregularly irregular Heart Sounds: + murmur (Grade 2 or 6 systolic no diastolic) Vessels: no JVD Extremities: no edema Chest (Breasts): Chest: + pacemaker Gastrointestinal (Abdomen): normal bowel sounds, soft, nontender, no hepatosplenomegaly Musculoskeletal: no cyanosis or clubbing, extremities motor strength 5/5 Results & Data Vital Signs (Past 12 Hours) Vital Signs Temp Pulse Resp BP Pulse Ox O2 Del Method 03/02/24 17:09 104 H 97 03/02/24 16:03 86 91 03/02/24 16:00 128/92 03/02/24 16:00 128/92 03/02/24 16:00 128/92 03/02/24 15:45 107 H 96 03/02/24 15:30 128/81 03/02/24 15:30 128/81 03/02/24 15:30 84 95 03/02/24 15:27 98 H 98 03/02/24 15:27 101 H 03/02/24 13:50 36.7 C 106 H 18 107/70 95 Room Air Laboratory Results TSH on 02/22/2024 3.57 Laboratory Results - last 24 hr 03/02/24 03/02/24 13:08 14:49 WBC 7.76 RBC 4.22 L Hgb 12.8 L Hct 39.2 L MCV 92.9 MCH 30.3 MCHC 32.7 RDW Std Deviation 50.2 H RDW Coeff of Adriel 14.7 H Plt Count 154 MPV 11.8 Immature Gran % (Auto) 0.3 Neut % (Auto) 68.1 Lymph % (Auto) 21.9 [place] % (Auto) 7.1 Eos % (Auto) 2.1 Baso % (Auto) 0.5 Neut # (Auto) 5.29 Lymph # (Auto) 1.70 [place] # (Auto) 0.55 Eos # (Auto) 0.16 Baso # (Auto) 0.04 Immature Gran # (Auto) 0.02 PT 10.9 INR 1.0 APTT 24 PTT Ratio 0.9 Sodium 138 Potassium 4.5 Chloride 104 Carbon Dioxide 27 Anion Gap 7 BUN 36 H Creatinine 1.36 Est Cr Clr Drug Dosing Not Reportable Est GFR ( Amer) 53.8 Est GFR (Non-Af Amer) 46.5 BUN/Creatinine Ratio 26.5 H Glucose 95 Calcium 9.5 Total Bilirubin 0.7 AST 19 ALT 17 Alkaline Phosphatase 98 Troponin I High Sens 17.7 B-Natriuretic Peptide 603 H Total Protein 6.6 Albumin 4.0 Globulin 2.6 Albumin/Globulin Ratio 1.5 Urine Color Yellow Urine Appearance Clear Urine pH 5.5 Ur Specific [place] 1.022 Urine Protein Negative Urine Glucose (UA) Negative Urine Ketones Negative Urine Blood Negative Urine Nitrite Negative Urine Bilirubin Negative Urine Urobilinogen Negative Ur Leukocyte Esterase Negative Diagnostic Findings Echocardiogram 02/23/2024 The left ventricular cavity size is normal. The LV wall thickness is moderately increased (concentric). The septal motion is abnormal consistent with right ventricular pacemaker. The regional left ventricular wall motion is otherwise normal. The qualitative LV ejection fraction is 55-59% (normal). The left ventricular diastolic function is mildly abnormal (grade I). The left atrium is moderately enlarged. The patient is status post TAVR with CoreValve prosthetic valve. The aortic valve prosthesis systolic gradients are normal for this type prosthesis. The mean systolic gradient through the TAVR is 10 mmHg. Significant aortic valve prosthesis regurgitation is absent. Moderate mitral regurgitation is present. Mild tricuspid regurgitation is present. The aortic root is mildly enlarged. (4.3 cm Cardiac catheterization 06/16/2021 * Severe chronic [place] 2 vessel CAD: prox LMCA 40-50%; mid LAD 100% occlusion; mid Cx 95%; luminal irregularities in dominant RCA * 2/2 widely patent bypass grafts: ARREDONDO-LAD, SVG-OM1 * Angiography unchanged from prior catheterization on 10/09/2019.
[2024-03-02] MEDS: INSULIN ASPART PER UNIT CHARGE SC SCH (18:29)
[2024-03-02] MEDS: AMIODARONE / D5W 150 MG/100 ML BAG IV ONE (18:35)
[2024-03-02] MEDS: Patient's HEIGHT &/or WEIGHT Needed STA (18:38)
[2024-03-02] MEDS: HEPARIN SODIUM/DEXTROSE 25,000 UNITS/500 ML BAG IV SCH (18:52)
[2024-03-02] MEDS: HEPARIN SOD (PORCINE) 1000 UNIT/ML IV ONE (18:55)
[2024-03-02] MEDS: Heparin IV Adult Wt-Based Low-Dose w/ INITIAL Bolus Protocol IV STA (18:59)
[2024-03-02] MEDS: ATORVASTATIN 40 MG TAB PO SCH (20:30)
[2024-03-02] MEDS: BENZONATATE 100 MG CAPSULE PO SCH (20:30)
[2024-03-02] MEDS: LEVOTHYROXINE SODIUM 25 MCG TABLET PO SCH (20:30)
[2024-03-02] MEDS: buPROPion SR 150 MG TABCR PO SCH (20:30)
[2024-03-02] MEDS: AMIODARONE 200 MG TAB PO SCH (20:30)
--- OUTSIDE RECORDS SUMMARY | 2024-03-02 23:55 | External Medical Summary | Summary of Care ---
Author Name Unknown Organization [facility] Address [address] [place] [address] Phone [phone] Care Team Providers Care Loan Interviewer Mortgage Name Role Phone Mariza Hill MD Primary Care Provider + Reason for Visit * Reason Onset Date Comments Test Results 02/29/2024 Encounter Details Date Type Department Care Team (Late st Contact Info) Description 02/29/2024 Telephone Gastroenterology, [facility] [address] [facility] ([place], [place]) [place] [id number] Hien Hunt CRNP [address] [facility] [place] [address] Test Results Allergies Active Allergy Reactions Criticality Noted Date Comments Penicillins 07/05/2001 jointpain documented as of this encounter (statuses as of 02/29/2024) Medications Medication Sig Dispensed Refills Start Date End Date Status MULTIVITAMINS OR TABS daily 0 01/22/2004 Active BENADRYL 25 MG PO CAPS 2 at bedtime for sleep prn 12/14/2008 Active Clindamycin HCl 300 MG Capsule TAKE 2 CAPSULES BY MOUTH 1 HOUR PRIOR TO DENTAL APPOINTMENT 09/20/2019 Active Aspirin 81 MG Oral Tablet Chewable Take 1 Tablet by mouth daily. 30 Tablet 3 06/28/2021 Active B-12-SL 1000 MCG Sublingual Tablet Sublingual (Cyanocobalamin)In dications:B12 deficiency Place under the tongue 1,000 mcg daily . 30 Tablet 11 12/04/2021 Active OneTouch Delica Lancets 33GIndications:Typ e 2 diabetes mellitus with hemoglobin A1c goal of less than 7.0% ([facility]) USE TO TEST ONCE DAILY. 100 Each 3 01/14/2023 Active OneTouch Ultra In Vitro Strip (Glucose Blood) Use to test once daily. Dx E11.9 100 Strip 5 01/25/2023 Active Nitroglycerin 0.4 MG Sublingual Tablet Sublingual (Nitrostat)Indicat ions:Chest pain, unspecified type DISSOLVE 1 TABLET UNDER THE TONGUE EVERY 5 MINUTES NEEDED FOR CHEST PAIN. 25 Tablet 3 02/27/2023 Active Albuterol Sulfate HFA 108 (90 Base) MCG/ACT Inhalation Aerosol SolutionIndication s:Bronchitis, complicated Inhale 2 Puffs by mouth every 4 hours as needed for Wheezing. 6.7 g 5 03/12/2023 Active DIURETIC TITRATION PLANIndications:Dy spnea on exertion,Acute on chronic diastolic (congestive) heart failure (HCC) If no improvement on day 3, contact heart failure managing provider. 1 Each 03/25/2023 Active Atorvastatin Calcium 80 MG Oral Tablet (Lipitor)Indicatio ns:Aortocoronary bypass status,Dyslipidemi a, goal LDL below 100 Take 1 Tablet by mouth in the morning. 90 Tablet 3 09/13/2023 Active buPROPion HCl ER (SR) 150 MG Oral Tablet Extended Release 12 Hour (Wellbutrin SR)Indications:Dep ression, unspecified depression type Take 1 Tablet by mouth in the morning and 1 Tablet before bedtime. 180 Tablet 3 09/13/2023 Active Furosemide 40 MG Oral Tablet (Lasix)Indications :Dyspnea on exertion,Acute on chronic diastolic (congestive) heart failure (HCC) Take 1 Tablet by mouth in the morning. 90 Tablet 3 09/13/2023 Active metFORMIN HCl 500 MG Oral Tablet (Glucophage) TAKE 1 TABLET DAILY WITH BREAKFAST 90 Tablet 3 09/13/2023 Active Potassium Chloride ER 20 MEQ Oral Tablet Extended ReleaseIndications :Dyspnea on exertion,Acute on chronic diastolic (congestive) heart failure (HCC) TAKE 1 TABLET BY MOUTH EVERY DAY IN THE MORNING 90 Tablet 3 09/13/2023 Active Vitron-C 65-125 MG Oral Tablet (Iron-Vitamin C 65-125 mg per tab)Indications:Ot her iron deficiency anemia Take 1 Tablet by mouth every other day. 10/21/2023 Active Levothyroxine Sodium 25 MCG Oral Tablet (Levoxyl) TAKE 1 TABLET EVERY MORNINGAT LEAST 30 MINUTES PRIOR TO BREAKFAST OR OTHER MEDICATIONS 90 Tablet 1 02/16/2024 Active Metoprolol Succinate ER 25 MG Oral Tablet Extended Release 24 Hour (toPROL XL)Indications:S/P AVR,CHB (complete heart block) (HCC),Chronic diastolic heart failure (HCC) Take 1 Tablet by mouth in the morning. 90 Tablet 3 02/22/2024 Active Metoprolol Succinate ER 25 MG Oral Tablet Extended Release 24 Hour (toPROL XL) One half pill once daily 30 Tablet 5 02/22/2024 Active Doxycycline Hyclate 100 MG Oral CapsuleIndications :Lyme disease Take 1 Capsule by mouth in the morning and 1 Capsule before bedtime. Do all this for 14 days. Take for 7 days. 28 Capsule 02/23/2024 03/08/2024 Active documented as of this encounter (statuses as of 02/29/2024) Active Problems Problem Noted Date Diagnosed Date Stenosis of prosthetic aortic valve 07/24/2021 S/P TAVR (transcatheter aortic valve replacement ) 06/24/2021 TIA (transient ischemic attack) 01/05/2021 Chronic kidney disease, stage 3a 08/26/2020 Overview: Per CKD protocol Thrombocytopenia 02/15/2020 Chronic diastolic heart failure 08/11/2019 Current mild episode of rebecca r depressive disorder without prior episode 08/11/2019 SCOTT (generalized anxiety disorder) 08/11/2019 Type 2 diabetes mellitus with peripheral vascula r disease 12/14/2018 History of prostate cancer 09/13/2018 Type 2 diabetes mellitus wit h hemoglobin A1c goal of less than 7.0% 06/05/2014 Overview: ICD-10 update of inactive term Ataxia, post-stroke 01/12/2013 S/P AVR 11/24/2012 Hx of actinic keratosis 07/04/2012 OBESITY, BMI 30-34 (SEE ACTUAL BMI) 10/10/2009 Overview: Per Obesity Taxonomy Dyslipidemia, goal LDL below 100 06/27/2009 Overview: Per Lipid Taxonomy. ADVANCE DIRECTIVE INFORMATION 04/02/2005 Overview: No, Advance Directive brochure given to patient. Coronary atherosclerosis 07/05/2001 Aortocoronary bypass status 07/05/2001 S/P BOVINE AORTIC VALVE REPLACEMENT 07/05/2001 Overview: CABG x 2 Bovine valve- asa No acute CP currently + CP 05/23 Echo Stress:06/22 Result Impression: 1. The patient exercise to moderately high and adequate levels achieving and exceeding target heart rate. 2. No symptoms of angina. Exercise limited by generalized fatigue. 3. No stress electrocardiographic or stress echocardiographic findings to suggest myocardial ischemia. 4. Resting segmental left ventricular wall motion abnormality involving a small portions of the apical anterior LV septum, apical anterior LV wall and apical inferior LV wall show no improvement with exercise consistent with scar. Depression documented as of this encounter (statuses as of 02/29/2024) Resolved Problems Problem Noted Date Diagnosed Date Resolved Date DM type 2, goal: symptom mgmt 05/23/2012 09/19/2013 Type 2 diabetes mellitus wit h hemoglobin A1c goal of less than 7.0% 04/01/2012 08/24/2012 Overview: ICD-10 update of inactive term HTN, goal below 140/90 06/05/200904/03 Overview: Modified per HTN protocol #16. EXAMINATION OF PARTICIPANT I N CLINICAL TRIAL-Genomics 01/09/2009 11/01/2009 Overview: Renamed Per Clinical Trials Billing Project. Study Titile: Genomic Markers for Patients with Cardiovascular Disease Project # PI: Keya Frederick MD Please call [phone] with study related questions Chest pain 01/09/2009 07/31/2014 [employer] CARDIO RESEARCH OTHER*[id number] 01/09/2009 08/25/2016 Overview: Renamed Per Clinical Trials Billing Project. Study Titile: Genomic Markers for Patients with Cardiovascular Disease Project # PI: Keya Frederick MD Please call [phone] with study related questions Lyme disease 02/07/2007 07/31/2014 Diverticulosis of colon 07/14/200512/2018 Peripheral vascular disease 07/03/2005 12/14/2018 Other specified rickettsioses 07/03/2005 09/13/2018 Overview: 2003 pt went turkey hunting and developed fever and ECM- rx'd with doxycycline 100 mg QD per pt x 14 days Pt feels better Will confirm with [facility] - + for RMSF- rx'd w/o sequalae per pt today 06/22 MALIGN NEOPL PROSTATE 01/07/20042018 Overview: Radical prostatectomy @ [facility] Pt c/o unavoidable "leakage" Pt agrees to Urology Dr. Leahy PSA(ng/mL) Roge Dt/Tm Resulted Value Status 03/18/05 7:37A 03/18/05 0.02 FINAL 09/19/04 8:28A 09/19/04 0.01 FINAL 04/30/04 9:22A 04/30/04 <0.01 FINAL Dyslipidemia, goal to be determined 07/05/2001 06/27/2009 Overview: Per Lipid Taxonomy. HYPERTENSION NOS 07/05/2001 06/06/2009 Overview: Modified per HTN protocol #16. FAMILY HX-GI MALIGNANCY 07/05/200112/2018 Overview: Colonoscopy 11/21: Findings: Multiple diverticula were found in the entire colon. Impression:- Diverticulosis. - The exam was otherwise normal to the cecum. Recommendation: - Repeat colonoscopy in 5 years for surveillance OBESITY, UNSPECIFIED 010 Overview: Per Obesity Taxonomy DM type 2, goal: symptom mgmt 09/19/2013 documented as of this encounter (statuses as of 02/29/2024) Immunizations Name Administration Dates Next Due COVID-19 mRNA, LNP-s, No Pre serve, 2-Dose Series (Jibbigo) 04/22/2021,09/25/2020,09/04/2020 COVID-19, LNP-s, No Preserve , Sincere-sucrose, Ages 12+ (Pfizer) 02/11/2022 Covid-19, Mrna, Lnp-s, Pf, B ivalent, 30 Mcg, IM, 12 yrs and above (Pfizer) 06/18/2022 Hepatitis B, 20+ yrs 08/27/2022,07/24/2022 Pneumococcal Conjugate Vacc, 13 Valent (Prevnar) 04/30/2015 Pneumococcal Polysaccharide PPV23 (Pneumovax) 05/09/2007 Season Influenza, Quad, PF, Adjuvanted, 65+ Yrs, IM (FLUAD) 03/26/2020 Seasonal Influenza Vac, Quad , Cell Cult, PF, 6 Mos and Up, IM, (Flucelvax Quad) 04/23/2021,04/21/2021,04/21/2018,05/16,04/03/2014,04/18/2013,04/13/2012 ,05/02/2011,04/14/2010,05/14/2009,01/2008,05/09/2007,04/29/2006, 5,05/31/2003,07/21/2000 Seasonal Influenza, Quadriva lent Hd (Fluzone Hd) 05/02/2023,04/23/2021 Seasonal Influenza, Quadriva lent Hd, 65+ Yrs 04/15/2022 Seasonal Influenza, Quadriva lent, No Preserve, IM 04/30/2015 Seasonal Influenza, Split, I IV3, With Preserve, Inj 04/03/2014,04/18/2013,04/13/2012,05/02,04/14/2010,05/14/2009,04/24/2008 ,05/09/2007 Seasonal Influenza, Trivalen t, High Dose, No Preserve, IM 05/07/2019,04/21/2018,05/16/2017 TDAP (age 10 and older)(Boostrix) 11/14/2014 Varicella Zoster Vaccine (Adult) 08/20/2011 Zoster Vaccine Recombinant (Shingrix) 07/29/2022 ,06/25/2020 documented as of this encounter Social History Tobacco Use Types Packs/Day Years Used Date Smoking Tobacco: Former Cigarettes 0.5 5 0 07/19/1958 - 07/19/1963 Passive Smoke Exposure: Past Smokeless Tobacco: Never Alcohol Use Standard Drinks/Week Comments No 0 (1 standard drink = 0.6 oz pur e alcohol) PHQ-2 Answer Date Recorded PHQ Adult Total Score 5 02/08/2023 Hunger Vital Sign Answer Date Recorded Within the past 12 months, y ou worried that your food would run out before you got the money to buy more. Never true 02/09/20 23 Within the past 12 months, t he food you bought just didn't last and you didn't have money to get more. Never true 02/08/2023 Childcare Answer Date Recorded Do you feel overwhelmed with taking care of a child, family member or friend? No 02/08/2023 Does your family need help f inding childcare? (Household - for ages 0-17 years) Not on file 02/08/2023 Clothing Answer Date Recorded Have you been unable to get clothing when it was really needed? No 02/08/2023 Is your family able to get c lothes or diapers when needed? (Household - for ages 0-17 years) Not on file 02/08/2023 Personal Safety Answer Date Recorded Do you feel unsafe or have concerns for your saf ety? No 02/08/2023 Do you have concerns for you r family's safety? (Household - for ages 0-17 years) Not on file 02/08/2023 Utilities Answer Date Recorded Do you have trouble paying y our heating, water, or electric bill? (Adult - for ages 18 years and over) Not on file 02/09/2024 Is your family able to pay t he heat, water, or electric bill? (Household - for ages 0-17 years) Not on file 02/09/2024 Does your family have access to good internet? (Household - for ages 0-17 years) Not on file 02/09/2024 Employment Status Answer Date Recorded Are you unemployed or without regular income? No 02/08/2023 Does the household have a re gular source of income? (Household - for ages 0-17 years) Not on file 02/08/2023 Social Connections Answer Date Recorded How often do you feel lonely or isolated from those around you? (Adult - for ages 18 years and over) Not on file 02/09/2024 Financial Resource Strain Answer Date R ecorded Do you have any trouble payi ng for your medications, or do you think you might in the future? No 02/08/2023 Does your family have troubl e paying for medicine? (Household - for ages 0-17 years) Not on file 02/08/2023 Transportation Needs Answer Date Record ed READ ONLY Do you have troubl e getting a ride to medical visits or work? Never True 02/08/2023 Does your family have a hard time getting a ride to doctors visits? (Household - for ages 0-17 years) Not on file 02/08/2023 Has lack of transportation k ept you from medical appointments, meetings, work, or from getting things needed for daily living? Check all that apply. (Adult - for ages 18 years and over) Not on file 02/08/2023 Do you (or your family) have trouble finding or paying for a ride (transportation)? (Household - for ages 0-17 years) Not on file 02/08/2023 Housing Stability Answer Date Recorded Do you currently live in a s helter or have no steady place to sleep at night? No 02/08/2023 READ ONLY Do you think you a re at risk of becoming homeless? No 02/08/2023 Does your family worry about paying for your home or becoming homeless? (Household - for ages 0-17 years) Not on file 0 02/08/2023 Are you homeless or worried that you might be in the future? (Adult - for ages 18 years and over) Not on file Are you (or your family) elena eless or worried that you might be in the future? (Household - for ages 0-17 years) Not on file Food Insecurity Answer Date Recorded Do you need food for this week? No 02/08/2023 Are you able to get enough f ood for your family? (Household - for ages 0-17 years) Not on file 02/08/2023 Does your family need food t his week? (Household - for ages 0-17 years) Not on file 02/08/2023 Do you always have enough fo od for your family? (Household - for ages 0-17 years) Not on file 02/08/2023 Sex and Gender Information Value Date Recorded Sex Assigned at Male 10/31/2018 2:41 PM EDT Gender Identity Male 10/31/2018 2:41 PM EDT Sexual Orientation Straight 10/31/2018 2: 41 PM EDT Job Start Date Occupation Industry Not on file Not on file Not on file documented as of this encounter Functional Status Functional Status Response Date of Assess ment Are you deaf or do you have serious difficulty h earing? No 06/24/2021 Are you blind or do you have serious difficulty seeing, even when wearing glasses? No 06/24/2021 Do you have serious difficul ty walking or climbing stairs? (5 years old or older) No 06/24/2021 Do you have difficulty dress ing or bathing? (5 years old or older) No 06/24/2021 Because of a physical, menta l, or emotional condition, do you have difficulty doing errands alone such as visiting a doctor s office or shopping? (15 years old or older) No 06/24/20 Cognitive Status Response Date of Assessm ent Because of a physical, menta l, or emotional condition, do you have serious difficulty concentrating, remembering, or making decisions? (5 years old or older) No 06/24/2021 documented as of this encounter Miscellaneous Notes * Telephone Encounter - Kyleigh Antony CMA - 02/29/2024 12:27 PM EDT My g sent * Telephone Encounter - Kyleigh Antony CMA - 02/29/2024 12:26 PM EDT ----- Message from Hien Hunt sent at 02/29/2024 11:14 AM EDT ----- Echo with normal LVEF. TAVR gradients stable. documented in this encounter Plan of Treatment Upcoming Encounters Date Type Department Care Team (Late st Contact Info) Description 06/20/2024 2:00 PM EST Office Visit Cardiology, [facility] [address] [place] [id number] Hien Hunt CRNP [address] [place] [address] 09/07/2024 1:40 PM EST Office Visit General Internal Medicine [facility] [place] [address] [facility] [place] [address] Mariza Hill MD [address] [facility] [place] [address] Health Maintenance Due Date Last Done Comments COVID-19 Vaccine ( season) 2023 04/26/2023, 06/18/2022, 02/11/2022, Additional history exists Adult Wellness Visit 02/09/2024 02/08/2023, 02/05/2022, 02/04/2021 Depression Monitoring 02/09/2024 02/08/2023 Diabetic Eye Exam 03/09/2024 03/09/2023, , 02/05/2022, Additional history exists Influenza Vaccine (FLU shot) (#1) 2024 05/02/2023, 04/15/2022, 04/23/2021, Additional history exists CKD PHOS USE SMARTSET 83340 06/15/202405/20, 06/02/2022, 06/16/2021, Additional history exists HbA1c 07/21/2024 01/19/2024, 05/20, 12/01/2022, Additional history exists DTaP,Tdap,and Td Vaccines (2 - Td or Tdap) 11/14/2024 11/14/2014 Albumin/Creatinine Ratio 01/18/2025 024, 12/01/2022, 02/05/2022, Additional history exists CKD HGB USE SMARTSET 50192 02/21/202502/21, 02/22/2024, 01/19/2024, Additional history exists Diabetic Foot Exam 02/21/2025 02/22/2024, 0 12/01/2022, 02/05/2022, Additional history exists TSH 02/21/2025 02/22/2024, 08/19, 06/15/2023, Additional history exists Pneumococcal Vaccine: 65+ Years Completed 04/30/2015, 05/09/2007, 07/05/2001 Colonoscopy Discontinued 04/10/2019, 07/20, 08/12/2016, Additional history exists Zoster Vaccines Completed 07/29/2022, 02/2020, 08/20/2011 HPV (Gardasil) Vaccine Aged Out No lo nger eligible based on patient's age to complete this topic MENINGOCOCCAL (MENACTRA/MENVEO) Aged Out No longer eligible based on patient's age to complete this topic documented as of this encounter Medical Devices Implanted Type Area Posting Machine Operator Device Identifier Shelf Expiration Date Model / Serial / Lot Balloon Cath Pacing [id number] - [id number] Implanted:Qty: 1 on 06/24/2021 at [facility] : MEDICAL [id number] 01/15/2023 [id number] / / [id number] Valve Aort Evolut Proplus 26mm - [id number] Implanted:Qty: 1 on 06/24/2021 at [facility] [place] [employer] [place] [facility] [place] [id number] 02/11/2022 EVPROPLUS- 26US / [id number] / [id number] Lead Tempo Temp Pacing - [id number] Implanted:Qty: 1 on 06/24/2021 at [facility] [place] [employer] [id number] 01/16/2022 [id number] / / [id number]-Rf [id number] - [id number] Implanted:Qty: 1 on 06/26/2021 by Lamin Rodriguez MD at [facility] [employer] [id number] 07/18/2022 [id number] / [id number] / [id number] Lead Pace Tendril 52cm - [id number] Implanted:Qty: 1 on 06/26/2021 by Lamin Rodriguez MD at [facility] [facility] [employer] : CARDIAC RHYTHM MGMT [id number] 01/16/2024 [id number] / [id number] / [id number] Lead Pace Selectsecure 3830-69 - [id number] Implanted:Qty: 1 on 06/26/2021 by Lamin Rodriguez MD at [facility] [place] [employer] : CRM [id number] 05/05/2023 [id number] / [id number] / [id number] documented as of this encounter Advance Directives Documents on File Type Date Recorded 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 * Full Code Date Activated Date Inactivated Comments 01/05/2021 11:11 AM 01/07/2021 4:07 PM This order reflects the patients wishes and were consensually agreed upon. Question Answer Comments Discussion of Advance Directives occurred with: Not Discussed * No Code Status Date Activated Date Inactivated Comments 01/28/2004 1:24 PM 01/28/2004 1:24 PM Care Teams Loan Interviewer Mortgage Relationship Specialty Start Date End Date Mariza Hill MD [address] [place] [address] PCP - General 10/01/09 documented as of this encounter
--- OUTSIDE RECORDS SUMMARY | 2024-03-02 23:55 | External Medical Summary | Summary of Care ---
Author Name Unknown Organization [facility] Address [address] [place] [address] Phone [phone] Care Team Providers Care Felt Cutter Name Role Phone Mariza Hill MD Primary Care Provider + Reason for Visit * Reason Onset Date Comments Pacemaker Clinic 03/01/2024 Remote transmis irvin Encounter Details Date Type Department Care Team (Late st Contact Info) Description 03/01/2024 Telephone Cardiology, [facility] [address] [place] [address] [place], Pacer Clinic [facility] [address] [place] [address] Pacemaker Clinic (Remote transmission ) Allergies Active Allergy Reactions Criticality Noted Date Comments Penicillins 07/05/2001 jointpain documented as of this encounter (statuses as of 03/01/2024) Medications Medication Sig Dispensed Refills Start Date [...] . 30 Tablet 11 12/04/2021 Active OneTouch Delariana Lancets 33GIndications:Typ e 2 diabetes mellitus with hemoglobin A1c goal of less than 7.0% ([facility]) USE TO TEST ONCE DAILY. 100 Each [...] as of this encounter (statuses as of 03/01/2024) Active Problems Problem Noted Date Diagnosed Date [...] as of this encounter (statuses as of 03/01/2024) Resolved Problems Problem Noted Date Diagnosed Date [...] Markers for Patients with Cardiovascular Disease Project #[id number] PI: Keya Frederick MD Please call [phone] with study related questions Chest pain 01/09/2009 07/31/2014 GENOMICS CARDIO RESEARCH OTHER*[id number] 01/09/2009 08/25/2016 Overview: Renamed Per Clinical Trials Billing Project. Study Titile: Genomic Markers for Patients with Cardiovascular Disease Project # PI: Keya Frederick MD Please call [phone] with study related questions Lyme disease 02/07/2007 [...] NEOPL PROSTATE 01/07/20042018 Overview: Radical prostatectomy @ [place] Pt c/o unavoidable "leakage" Pt agrees to [...] as of this encounter (statuses as of 03/01/2024) Immunizations Name Administration Dates Next Due COVID-19 mRNA, LNP-s, No Pre serve, 2-Dose Series ([employer]) 04/22/2021,09/25/2020,09/04/2020 COVID-19, LNP-s, No Preserve , Sincere-sucrose, [...] encounter Miscellaneous Notes * Telephone Encounter - Caridad Salas LPN - 03/01/2024 1:31 PM EDT Unscheduled Remote Reason: recorded events Alerts or Events: 21 Battery: Battery is at 47%, 2.17 yrs @ 2.96V Sensing, impedance and thresholds reviewed Programmed parameters reviewed Presenting rhythm 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 Histograms reviewed No significant changes noted Tachycardia: AF w/RVR Stored EGMs are consistent with or suggestive of Atrial Fibrillation with Rapid Ventricular Response AT/AF [place]: 1% Total episodes: 21 Longest episode: 10hr 25min 14 sec Fastest episode: 129bpm Additional Notes: No AC Alert: Yellow A Yellow Alert was reported by the device: Ongoing episode of AF Episodes of AF w/ RVR Not anticoagulated documented in this encounter Plan of Treatment Upcoming Encounters Date Type Department Care Team (Late st Contact Info) Description 06/20/2024 2:00 PM EST Office Visit Cardiology, [facility] [address] [place] [address] Hien Hunt CRNP [address] [place] [address] 09/07/2024 1:40 PM EST Office Visit General Internal Medicine [facility] [address] [place] [address] Mariza Hill MD [address] [facility] [place] [address] Health Maintenance Due Date Last Done Comments COVID-19 Vaccine ( season) 2023 04/26/2023, 06/18/2022, 02/11/2022, Additional history exists Adult Wellness Visit 02/09/2024 02/08/2023, 02/05/2022, 02/04/2021 Depression Monitoring 02/09/2024 02/08/2023 Diabetic Eye Exam 03/09/2024 03/09/2023, , 02/05/2022, Additional history exists Influenza Vaccine (FLU shot) (#1) 2024 05/02/2023, 04/15/2022, 04/23/2021, Additional history exists CKD PHOS USE SMARTSET 24011 06/15/202405/20, 06/02/2022, 06/16/2021, Additional history exists HbA1c 07/21/2024 01/19/2024, 05/20, 12/01/2022, Additional history exists DTaP,Tdap,and Td Vaccines (2 - Td or Tdap) 11/14/2024 11/14/2014 Albumin/Creatinine Ratio 01/18/2025 024, 12/01/2022, 02/05/2022, Additional history exists CKD HGB USE SMARTSET 29619 02/21/202502/21, 02/22/2024, 01/19/2024, Additional history exists Diabetic [...] this encounter Medical Devices Implanted Type Area Resident Director Device Identifier Shelf Expiration Date Model / Serial / Lot Balloon Cath Pacing [id number] - [id number] Implanted:Qty: 1 on 06/24/2021 at [facility] : MEDICAL [id number] 01/15/2023 [id number] / / [id number] Valve Aort Evolut Proplus 26mm - [id number] Implanted:Qty: 1 on 06/24/2021 at [facility] [place] [employer] [place] CARDIAC SURGERY [id number] 02/11/2022 EVPROPLUS- 26US / [id number] / [id number] Lead Tempo Temp Pacing - [id number] Implanted:Qty: 1 on 06/24/2021 at [facility] [place] [employer] [id number] 01/16/2022 [id number] / / [id number]-Rf [id number] - [id number] Implanted:Qty: 1 on 06/26/2021 by Lamin Rodriguez MD at [facility] [place] [facility] [employer] [id number] 07/18/2022 [id number] / [id number] / [id number] Lead Pace Tendril 52cm - [id number] Implanted:Qty: 1 on 06/26/2021 by Lamin Rodriguez MD at [facility] [place] [facility] [employer] : CARDIAC RHYTHM MGMT [id number] 01/16/2024 2088TC/52 / [id number] / [id number] Lead Pace Selectsecure 3830-69 - [id number] Implanted:Qty: 1 on 06/26/2021 by Laimn Rodriguez MD at [facility] [place] [employer] : CRM [id number] 05/05/2023 [id number] / [id number] / [id number] documented as of this encounter Advance Directives Documents on File Type Date Recorded Patient Studio Musician Expl anation Power of Staff Certified Nurse Midwife 01/28/2004 * Full Code (Latest Code Status [...] 1:24 PM 01/28/2004 1:24 PM Care Teams Felt Cutter Relationship Specialty Start Date End Date Mariza Hill MD [address] [facility] [address] PCP - General 10/01/09 documented as of this encounter
--- OUTSIDE RECORDS SUMMARY | 2024-03-02 23:55 | External Medical Summary | Summary of Care ---
Author Name Unknown Organization [facility] Address [address] [place] [address] Phone [phone] Care Team Providers Care Pharmacy Technician Instructor Name Role Phone Mariza Hill MD Primary Care Provider + Reason for Visit * Reason Onset Date Comments Pacemaker Clinic 03/01/2024 Remote transmis irvin Encounter Details Date Type Department Care Team (Late st Contact Info) Description 03/01/2024 Telephone Cardiology, [facility] [address] [place] [address] [place], Pacer Clinic [facility] [address] [place] [address] Pacemaker Clinic (Remote transmission ) Allergies Active Allergy Reactions Criticality Noted Date Comments Penicillins 07/05/2001 jointpain documented as of this encounter (statuses as of 03/01/2024) Medications Medication Sig Dispensed Refills Start Date End Date Status MULTIVITAMINS OR TABS daily 0 01/22/2004 Act maty BENADRYL 25 MG PO CAPS 2 at bedtime for sleep prn 12/14/2008 Active Clindamycin HCl 300 MG Capsule TAKE 2 CAPSULES BY MOUTH 1 HOUR PRIOR TO DENTAL APPOINTMENT 09/20/2019 Active Aspirin 81 MG Oral Tablet Chewable Take 1 Tablet by mouth daily. 30 Tablet 3 06/28/2021 Active B-12-SL 1000 MCG Sublingual Tablet Sublingual (Cyanocobalamin)Indic ations:B12 deficiency Place under the tongue 1,000 mcg daily . 30 Tablet 11 12/04/2021 Active OneTouch Delica Lancets 33GIndications:Type 2 diabetes mellitus with hemoglobin A1c goal of less than 7.0% ([facility]) USE TO TEST ONCE DAILY. 100 Each 3 01/14/2023 Active OneTouch Ultra In Vitro Strip (Glucose Blood) Use to test once daily. Dx E11.9 100 Strip 5 01/25/2023 Active Nitroglycerin 0.4 MG Sublingual Tablet Sublingual (Nitrostat)Indication s:Chest pain, unspecified type DISSOLVE 1 TABLET UNDER THE TONGUE EVERY 5 MINUTES NEEDED FOR CHEST PAIN. 25 Tablet 3 02/27/2023 Active Albuterol Sulfate HFA 108 (90 Base) MCG/ACT Inhalation Aerosol SolutionIndications:jahaira Arce Inhale 2 Puffs by mouth every 4 hours as needed for Wheezing. 6.7 g 5 03/12/2023 Active DIURETIC TITRATION PLANIndications:Dyspn ea on exertion,Acute on chronic diastolic (congestive) heart failure ([facility]) If no improvement on day 3, contact heart failure managing provider. 1 Each 03/25/2023 Active Atorvastatin Calcium 80 MG Oral Tablet (Lipitor)Indications: Aortocoronary bypass status,Dyslipidemia, goal LDL below 100 Take 1 Tablet by mouth in the morning. 90 Tablet 3 09/13/2023 Active buPROPion HCl ER (SR) 150 MG Oral Tablet Extended Release 12 Hour (Wellbutrin SR)Indications:Depres irvin, unspecified depression type Take 1 Tablet by mouth in the morning and 1 Tablet before bedtime. 180 Tablet 3 09/13/2023 Active Furosemide 40 MG Oral Tablet (Lasix)Indications:Dy spnea on exertion,Acute on chronic diastolic (congestive) heart failure (HCC) Take 1 Tablet by mouth in the morning. 90 Tablet 3 09/13/2023 Active metFORMIN HCl 500 MG Oral Tablet (Glucophage) TAKE 1 TABLET DAILY WITH BREAKFAST 90 Tablet 09/13/2023 Active Potassium Chloride ER 20 MEQ Oral Tablet Extended ReleaseIndications:Dy spnea on exertion,Acute on chronic diastolic (congestive) heart failure (HCC) TAKE 1 TABLET BY MOUTH EVERY DAY IN THE MORNING 90 Tablet 3 09/13/2023 Active Vitron-C 65-125 MG Oral Tablet (Iron-Vitamin C 65-125 mg per tab)Indications:Other iron deficiency anemia Take 1 Tablet by [...] 02/22/2024 Active Doxycycline Hyclate 100 MG Oral CapsuleIndications:Ly me disease Take 1 Capsule by mouth in the morning and 1 Capsule before bedtime. Do all this for 14 days. Take for 7 days. 28 Capsule 02/23/2024 4 Active Apixaban 5 MG Oral Tablet (Eliquis)Indications: New onset atrial fibrillation (HCC),Current use of penitentiary anticoagulation Take 1 Tablet by mouth in the morning and 1 Tablet before bedtime. 60 Tablet 11 03/01/2024 Active documented as of this encounter (statuses [...] Markers for Patients with Cardiovascular Disease Project #[id number] PI: Keya Frederick MD Please call [phone] with study related questions Chest pain 01/09/2009 07/31/2014 GENOMICS CARDIO RESEARCH OTHER*[id number] 01/09/2009 08/25/2016 Overview: Renamed Per Clinical Trials Billing Project. Study Titile: Genomic Markers for Patients with Cardiovascular Disease Project #[id number] PI: Keya Frederick MD Please call [phone] with study related questions Lyme disease 02/07/2007 [...] NEOPL PROSTATE 01/07/20042018 Overview: Radical prostatectomy @ [place] Pt c/o unavoidable "leakage" Pt agrees to [...] mRNA, LNP-s, No Pre serve, 2-Dose Series ([employer]) 04/22/2021,09/25/2020,09/04/2020 COVID-19, LNP-s, No Preserve , Sincere-sucrose, Ages 12+ (Pfizer) 02/11/2022 Covid-19, Mrna, Lnp-s, Pf, B ivalent, 30 Mcg, IM, 12 yrs and above (Pfizer) 06/18/2022 Hepatitis B, 20+ yrs 08/27/2022,07/24/2022 Pneumococcal Conjugate Vacc, 13 Valent (Prevnar) 04/30/2015 Pneumococcal Polysaccharide PPV23 (Pneumovax) 05/09/2007,07/05/2001 Season Influenza, Quad, PF, Adjuvanted, 65+ Yrs, IM (FLUAD) 03/26/2020 Seasonal Influenza Vac, Quad , Cell Cult, PF, 6 Mos and Up, IM, (Flucelvax Quad) 04/23/2021,04/21/2021,04/21/2018,04/19,04/03/2014,04/18/2013,04/13/20 12,05/02/2011,04/14/2010,05/14/2009,1 ,05/09/2007,04/29/2006,05/19,05/31/2003,07/21/2000 Seasonal Influenza, Quadriva lent Hd (Fluzone Hd) 05/02/2023,04/23/2021 Seasonal Influenza, Quadriva lent Hd, 65+ Yrs 04/15/2022 Seasonal Influenza, Quadriva lent, No Preserve, IM 04/30/2015 Seasonal Influenza, Split, I IV3, With Preserve, Inj 04/03/2014,04/18/2013,04/13/2012,04/18,04/14/2010,05/14/2009,04/24/20 08,05/09/2007,05/19/2005,05/31/2003,0 07/21/2000 07/22/2001 Seasonal Influenza, Trivalen t, High Dose, No [...] as of this encounter Miscellaneous Notes * Addendum Note - Pavithra Gaston CRNP - 03/01/2024 5:14 PM EDTAddended by: PAVITHRA GASTON on: 03/01/2024 05:14 PM Modules accepted: Orders * Telephone Encounter - Pavithra Gaston CRNP - 03/01/2024 5:05 PM EDT Last seen in our office by SABAS Medina Thank you Caridad for the alert! Nursing staff: Can we please reach out to Mr. Prescott and advise him of the following. His pacemaker is detecting a irregular rhythm known as A-fib. While the number of episodes are low, this particular episode lasted over 10 hours. He may or may not have felt symptoms. Please assure patient that while Atrial fibrillation is not a "deadly" heart rhythm, and while it is quite common, it is an irregular rhythm which can lead to blood clots forming. My recommendation is to do the following: Continue all current medications as prescribed, but wouldrecommend that patient start a prescription blood thinner known as Eliquis. Please ensure patient has not had recent falls, no history of a brain bleed and no history of a GI bleed. If so, let me know immediately and hold off on starting med. Age> 81 Wt> 50kg Cr 1.3. Patient will need to be on full dosing 5mg PO BID He will need labs in 1-2 weeks, non fasting. CBC and BMP Orders placed. If patient runs into any cost concerns, he needs to make us aware Thank you. 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 Heart Rate Histograms reviewed No significant changes noted Tachycardia: AF w/RVR Stored EGMs are consistent with or suggestive of Atrial Fibrillation with Rapid Ventricular Response AT/AF [place]: 1% Total episodes: 21 Longest episode: 10hr [...] 06/20/2024 2:00 PM EST Office Visit Cardiology, [facility] [address] [place] [address] Hien Hunt CRNP [address] [place] [address] 09/07/2024 1:40 PM EST Office Visit General Internal Medicine [facility] [address] [facility] [place] [address] Mariza Hill MD [address] [facility] [place] [address] Scheduled Orders Name Type Priority Associated Diagnoses Orde r Schedule CBC Lab Routine 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 Expected: 03/01/2024, Expires: 03/01/2025 BASIC METABOLIC PANEL Lab Routine Current use of penitentiary anticoagulation Expected: 03/01/2024, Expires: 03/01/2025 Health Maintenance Due Date Last Done Comments COVID-19 Vaccine ( season) 2023 04/26/2023, 06/18/2022, 02/11/2022, Additional history exists Adult Wellness Visit 02/09/2024 02/08/2023, 02/05/2022, 02/04/2021 Depression Monitoring 02/09/2024 02/08/2023 Diabetic Eye Exam 03/09/2024 03/09/2023, , 02/05/2022, Additional history exists Influenza Vaccine (FLU shot) (#1) 2024 05/02/2023, 04/15/2022, 04/23/2021, Additional history exists CKD PHOS USE SMARTSET 89482 06/15/202405/20, 06/02/2022, 06/16/2021, Additional history exists HbA1c 07/21/2024 01/19/2024, 05/20, 12/01/2022, Additional history exists DTaP,Tdap,and Td Vaccines (2 - Td or Tdap) 11/14/2024 11/14/2014 Albumin/Creatinine Ratio 01/18/2025 024, 12/01/2022, 02/05/2022, Additional history exists CKD HGB USE SMARTSET 13890 02/21/202502/21, 02/22/2024, 01/19/2024, Additional history exists Diabetic [...] this encounter Medical Devices Implanted Type Area Customer Relations Consultant Device Identifier Shelf Expiration Date Model / Serial / Lot Balloon Cath Pacing [id number] - [id number] Implanted:Qty: 1 on 06/24/2021 at [facility] : MEDICAL [id number] 01/15/2023 [id number] / / [id number] Valve Aort Evolut Proplus 26mm - [id number] Implanted:Qty: 1 on 06/24/[place] [facility] [place] [employer] [place] CARDIAC SURGERY [id number] 02/11/2022 EVPROPLUS- 26US / [id number] / [id number] Lead Tempo Temp Pacing - [id number] Implanted:Qty: 1 on 06/24/2021 [place] [facility] [place] [employer] [id number] 01/16/2022 [id number] / / [id number]-Rf [id number] - [id number] Implanted:Qty: 1 on 06/26/2021 by Lamin Rodriguez MD [place] [facility] [place] [facility] [employer] [id number] 07/18/2022 [id number] / [id number] / [id number] Lead Pace Tendril 52cm - [id number] Implanted:Qty: 1 on 06/26/2021 by Lamin Rodriguez MD at [facility] [place] [facility] [employer] : CARDIAC RHYTHM MGMT [id number] 01/16/2024 2088TC/52 / [id number] / [id number] Lead Pace [employer] 3830-69 - [id number] Implanted:Qty: 1 on 06/26/2021 by Lamin Rodriguez MD at [facility] [place] [employer] : CRM [id number] 05/05/2023 [id number] / [id number] / [id number] documented as of this encounter Visit Diagnoses Diagnosis New onset atrial fibrillation (HCC)- Primary Atrial fibrillation 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
--- OUTSIDE RECORDS SUMMARY | 2024-03-02 23:56 | External Medical Summary ---
Author Name Unknown Address Unknown Organization K01:LABORATORY [facility] [place] - [address] [place] [address] Laboratory Report Ordering Provider Test Date Status TAJ PRITCHARD 02/22/2024 12:14:23 Final Observation Date Value Abnormality Reference (Units ) Status Iron 02/22/2024 12:14:23 77 45-176 (ug/dL) Final Iron-binding capacity 02/22/2024 12:14:23 247 Below low normal 250-425 (ug/dL) Final Transferrin Sat % 02/22/2024 12:14:23 31 15-55 (%) Final Performing Location LABORATORY [facility] - [address] [place] [address]
--- OUTSIDE RECORDS SUMMARY | 2024-03-02 23:56 | External Medical Summary ---
Author Name Unknown Address Unknown Organization K01:LABORATORY [facility] - [address] [place] [address] Laboratory Report Ordering Provider Test Date Status TAJ PRITCHARD 02/22/2024 12:14:23 Final Observation Date Value Abnormality Reference (Units ) Status Ferritin 02/22/2024 12:14:23 143 30-400 (ng /mL) Final Performing Location LABORATORY [facility] - [address] [place] [address]
--- OUTSIDE RECORDS SUMMARY | 2024-03-02 23:56 | External Medical Summary | Summary of Care ---
Author Name Unknown Organization [facility] Address [address] [place] [address] Phone [phone] Care Team Providers Care Greenhouse Laborer Name Role Phone Mariza Hill MD Primary Care Provider + Encounter Details Date Type Department Care Team (Late st Contact Info) Description 02/23/2024 Orders Only Laboratory [facility] [place] [address] [place] [address] Mariza Hill MD [address] [place] [address] Lyme disease* Allergies Active Allergy Reactions Criticality Noted Date Comments Penicillins 07/05/2001 jointpain documented as of this encounter (statuses as of 02/23/2024) Medications Medication Sig Dispensed Refills Start Date [...] hemoglobin A1c goal of less than 7.0% ([facility]) USE TO TEST ONCE DAILY. [...] as of this encounter (statuses as of 02/23/2024) Active Problems Problem Noted Date Diagnosed Date [...] as of this encounter (statuses as of 02/23/2024) Resolved Problems Problem Noted Date Diagnosed Date [...] Markers for Patients with Cardiovascular Disease Project #[id number] PI: Keya Frederick MD Please call [phone] with study related questions Chest pain 01/09/2009 07/31/2014 [facility] CARDIO RESEARCH OTHER*[id number] 01/09/2009 08/25/2016 Overview: Renamed Per Clinical Trials Billing Project. Study Titile: Genomic Markers for Patients with Cardiovascular Disease Project #[id number] PI: Keya Frederick MD Please call [phone] with study related questions Lyme disease 02/07/2007 [...] NEOPL PROSTATE 01/07/20042018 Overview: Radical prostatectomy @ [place] Pt c/o unavoidable "leakage" Pt agrees to [...] as of this encounter (statuses as of 02/23/2024) Immunizations Name Administration Dates Next Due COVID-19 mRNA, LNP-s, No Pre serve, 2-Dose Series (Ey[employer]re[employer]) 04/22/2021,09/25/2020,09/04/2020 COVID-19, LNP-s, No Preserve , Sincere-sucrose, [...] (15 years old or older) No 06/24/20 21 Cognitive Status Response Date of Assessm ent Because of a physical, menta l, or emotional condition, do you have serious difficulty concentrating, remembering, or making decisions? (5 years old or older) No 06/24/2021 documented as of this encounter Plan of Treatment Upcoming Encounters Date Type Department Care Team (Late st Contact Info) Description 06/20/2024 2:00 PM EST Office Visit Cardiology, [facility] [address] [place] [address] iHen Hunt CRNP [address] [place] [address] 09/07/2024 1:40 PM EST Office Visit General Internal Medicine [facility] [place] [address] [place] [address] Mariza Hill MD [address] [place] [address] Health Maintenance Due Date Last Done Comments COVID-19 Vaccine ( season) 2023 04/26/2023, 06/18/2022, 02/11/2022, Additional history exists Adult Wellness Visit 02/09/2024 02/08/2023, 02/05/2022, 02/04/2021 Depression Monitoring 02/09/2024 02/08/2023 Diabetic Eye Exam 03/09/2024 03/09/2023, , 02/05/2022, Additional history exists Influenza Vaccine (FLU shot) (#1) 2024 05/02/2023, 04/15/2022, 04/23/2021, Additional history exists CKD PHOS USE SMARTSET 48850 06/15/202405/20, 06/02/2022, 06/16/2021, Additional history exists HbA1c 07/21/2024 01/19/2024, 05/20, 12/01/2022, Additional history exists DTaP,Tdap,and Td Vaccines (2 - Td or Tdap) 11/14/2024 11/14/2014 Albumin/Creatinine Ratio 01/18/2025 024, 12/01/2022, 02/05/2022, Additional history exists CKD HGB USE SMARTSET 37451 02/21/202502/21, 02/22/2024, 01/19/2024, Additional history exists Diabetic [...] this encounter Medical Devices Implanted Type Area Structural Rigger Device Identifier Shelf Expiration Date Model / Serial / Lot Balloon Cath Pacing [id number] - [id number] Implanted:Qty: 1 on 06/24/2021 at [facility] : MEDICAL [id number] 01/15/2023 [id number] / / [id number] Valve Aort Evolut Proplus 26mm - [id number] Implanted:Qty: 1 on 06/24/2021 at [facility] [place] [employer] : CARDIAC SURGERY [id number] 02/11/2022 EVPROPLUS- 26US / [id number] / [id number] Lead Tempo Temp Pacing - [id number] Implanted:Qty: 1 on 06/24/2021 at [facility] [place] [employer] [id number] 01/16/2022 [id number] / / [id number]-Rf [id number] - [id number] Implanted:Qty: 1 on 06/26/2021 by Lamin Rodriguez MD at [facility] [place] [facility] [employer] [id number] 07/18/2022 [id number] / [id number] / [id number] Lead Pace Tendril 52cm - [id number] Implanted:Qty: 1 on 06/26/2021 by Lamin Rodriguez MD at [facility] [place] [facility] [employer] : CARDIAC RHYTHM MGMT [id number] 01/16/2024 2088TC/52 / [id number] / [id number] Lead Pace Select[employer] 3830-69 - [id number] Implanted:Qty: 1 on 06/26/2021 by Lamin Rodriguez MD at [facility] [place] [employer] : CRM [id number] 05/05/2023 [id number] / [id number] / [id number] documented as of this encounter Visit Diagnoses Diagnosis Lyme disease- Primary documented in this encounter Advance Directives Documents on File Type Date Recorded Patient Sheet Rock Finisher Expl anation Power of Quality Eng 01/28/2004 * Full Code (Latest Code Status [...] 1:24 PM 01/28/2004 1:24 PM Care Teams Greenhouse Laborer Relationship Specialty Start Date End Date Mariza Hill MD [address] [facility] [place] [address] PCP - General 10/01/09 documented as of this encounter
--- OUTSIDE RECORDS SUMMARY | 2024-03-02 23:56 | External Medical Summary ---
Author Name Unknown Address Unknown Organization K09:[facility] [place] [address] Laboratory Report Ordering Provider Test Date Status TAJ PRITCHARD 02/22/2024 12:14:23 Final Observation Date Value Abnormality Reference (Units ) Status WBC, Total 02/22/2024 12:14:23 7.56 4.00-10.8 0 (K/uL) Final RBC 02/22/2024 12:14:23 3.96 4.50-5.25 (M/uL) Final Hemoglobin 02/22/2024 12:14:23 12.0 Below low normal 14 .0-16.8 (g/dL) Final HCT 02/22/2024 12:14:23 38.1 Below low normal 40. 0-48.4 (%) Final MCV 02/22/2024 12:14:23 96.2 82.0-99.5 (fL) Final MCH 02/22/2024 12:14:23 30.3 27.0-34.0 (pg) Final MCHC 02/22/2024 12:14:23 31.5 32.0-36.0 (g/dL) Final RDW 02/22/2024 12:14:23 15.1 11.5-15.5 (%) Final Platelets 02/22/2024 12:14:23 153 140-400 (K /uL) Final MPV 02/22/2024 12:14:23 11.7 6.6-11.1 ( fL) Final Performing Location [facility] [place] [address]
--- OUTSIDE RECORDS SUMMARY | 2024-03-02 23:56 | External Medical Summary ---
Author Name Unknown Address Unknown Organization K01:[facility] [place] [address] [place] [address] Laboratory Report Ordering Provider Test Date Status TAJ PRITCHARD 02/22/2024 12:14:23 Final Observation Date Value Abnormality Reference (Units ) Status Borrelia burgdorferi IgG and IgM [Interpretation] in Serum by Immunoassay 02/22/2024 12:14:23 Positive Abnormal Negative Final Result is preliminary and no t diagnostic. Second-tier testing will be reflexively performed to confirm preliminary antibody screen result and reported separately.

Test result reported to [facility]. Performing Location [facility] [place] - [address] [place] [address]
--- OUTSIDE RECORDS SUMMARY | 2024-03-02 23:56 | External Medical Summary | Summary of Care ---
Author Name Unknown Organization [facility] Address [address] [place] [address] Phone [phone] Care Team Providers Care Control Panel Builder Name Role Phone Mariza Hill MD Primary Care Provider + Reason for Visit * Reason Comments eRx-Medication Refill Encounter Details Date Type Department Care Team (Late st Contact Info) Description 02/15/2024 Refill General Internal Medicine [facility] [address] [facility] [place] [address] Mariza Hill MD [address] [place] [address] Allergies Active Allergy Reactions Criticality Noted Date Comments Penicillins 07/05/2001 jointpain documented as of this encounter (statuses as of 02/16/2024) Medications Medication Sig Dispensed Refills Start Date [...] Active B-12-SL 1000 MCG Sublingual Tablet Sublingual (Cyanocobalamin) Indications:B12 deficiency Place under the tongue 1,000 mcg daily . 30 Tablet 11 12/04/2021 Active OneTouch Delica Lancets 33GIndications:T ype 2 diabetes mellitus with hemoglobin A1c goal of less than 7.0% ([facility]) USE TO TEST ONCE DAILY. 100 Each 3 01/14/2023 Active OneTouch Ultra In Vitro Strip (Glucose Blood) Use to test once daily. Dx E11.9 100 Strip 5 01/25/2023 Active Nitroglycerin 0.4 MG Sublingual Tablet Sublingual (Nitrostat)Indic ations:Chest pain, unspecified type DISSOLVE 1 TABLET UNDER THE TONGUE EVERY 5 MINUTES NEEDED FOR CHEST PAIN. 25 Tablet 3 02/27/2023 Active Albuterol Sulfate HFA 108 (90 Base) MCG/ACT Inhalation Aerosol SolutionIndicati ons:Bronchitis, complicated Inhale 2 Puffs by mouth every 4 hours as needed for Wheezing. 6.7 g 5 03/12/2023 Active DIURETIC TITRATION PLANIndications: Dyspnea on exertion,Acute on chronic diastolic (congestive) heart failure ([facility]) If no improvement on day 3, contact heart failure managing provider. 1 Each 03/25/2023 Active Atorvastatin Calcium 80 MG Oral Tablet (Lipitor)Indicat ions:Aortocorona ry bypass status,Dyslipide liya, goal LDL below 100 Take 1 Tablet by mouth in the morning. 90 Tablet 3 09/13/2023 Active buPROPion HCl ER (SR) 150 MG Oral Tablet Extended Release 12 Hour (Wellbutrin SR)Indications:D epression, unspecified depression type Take 1 Tablet by mouth in the morning and 1 Tablet before bedtime. 180 Tablet 09/13/2023 Active Furosemide 40 MG Oral Tablet (Lasix)Indicatio ns:Dyspnea on exertion,Acute on chronic diastolic (congestive) heart failure ([facility]) Take 1 Tablet by mouth in the morning. 90 Tablet 3 09/13/2023 Active metFORMIN HCl 500 MG Oral Tablet (Glucophage) TAKE 1 TABLET DAILY WITH BREAKFAST 90 Tablet 3 09/13/2023 Active Metoprolol Succinate ER 25 MG Oral Tablet Extended Release 24 Hour (toPROL XL)Indications:S /P AVR,CHB (complete heart block) ([facility]),Chronic diastolic heart failure (HCC) Take 1 Tablet by mouth in the morning. 90 Tablet 3 09/13/2023 Active Potassium Chloride ER 20 MEQ Oral Tablet Extended ReleaseIndicatio ns:Dyspnea on exertion,Acute on chronic diastolic (congestive) heart failure ([facility]) TAKE 1 TABLET BY MOUTH EVERY DAY IN THE MORNING 90 Tablet 3 09/13/2023 Active Vitron-C 65-125 MG Oral Tablet (Iron-Vitamin C 65-125 mg per tab)Indications: Other iron deficiency anemia Take 1 Tablet by mouth every other day. 10/21/2023 Active Levothyroxine Sodium 25 MCG Oral Tablet (Levoxyl) TAKE 1 TABLET EVERY MORNINGAT LEAST 30 MINUTES PRIOR TO BREAKFAST OR OTHER MEDICATIONS 90 Tablet 1 02/16/2024 Active Levothyroxine Sodium 25 MCG Oral Tablet (Levoxyl) Take 1 Tablet by mouth in the morning. (at least 30 min prior to breakfast or other meds). 90 Tablet 1 08/30/2023 4 Discontinued documented as of this encounter (statuses as of 02/16/2024) Active Problems Problem Noted Date Diagnosed Date [...] as of this encounter (statuses as of 02/16/2024) Resolved Problems Problem Noted Date Diagnosed Date [...] Markers for Patients with Cardiovascular Disease Project #[id number] PI: Keya Frederick MD Please call [phone] with study related questions Chest pain 01/09/2009 07/31/2014 GENOMICS CARDIO RESEARCH OTHER*[id number] 01/09/2009 08/25/2016 Overview: Renamed Per Clinical Trials Billing Project. 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) 04/22/2021,09/25/2020,09/04/2020 COVID-19, LNP-s, No Preserve , Sincere-sucrose, Ages 12+ ([employer]) 02/11/2022 Covid-19, Mrna, Lnp-s, Pf, B ivalent, [...] encounter Miscellaneous Notes * Telephone Encounter - Noelle Chao RPh - 02/16/2024 6:05 AM EDTSigned Prescriptions: Disp Refills Levothyroxine Sodium 25 MCG Oral Tablet (L*90 Tab*1 Sig: TAKE 1 TABLET EVERY MORNINGAT LEAST 30 MINUTES PRIOR TO BREAKFAST OR OTHER MEDICATIONSAuthorizing Provider:MARIZA HILL User: NOELLE CHAO documented in this encounter Plan of Treatment Upcoming Encounters Date Type Department Care Team (Late st Contact Info) Description 02/22/2024 11:00 AM EDT Office Visit General Internal Medicine [facility] [address] [place] [address] Mariza Hill MD [address] [place] [address] 06/05/2024 3:00 PM EST Cardiac Studies Cardiac Studies, [facility] [address] [facility] [place] [address] 06/20/2024 2:00 PM EST Office Visit Cardiology, [facility] [address] [facility] [place] [address] Hien Hunt CRNP [address] [place] [address] Health Maintenance Due Date Last Done Comments Hepatitis B Vaccine (3 of 3 - 19+ 3-dose series) 01/21/2023 08/27/2022, 07/24/2022 COVID-19 Vaccine (2022- season) 2023 04/26/2023, 06/18/2022, 02/11/2022, Additional history exists Diabetic Foot Exam 12/02/2023 12/01/2022, 0 02/05/2022, 07/03/2021, Additional history exists Depression Monitoring 02/09/2024 02/08/2023 Diabetic Eye Exam 03/09/2024 03/09/2023, , 02/05/2022, Additional history exists Influenza Vaccine (FLU shot) (#1) 2024 05/02/2023, 04/15/2022, 04/23/2021, Additional history exists CKD PHOS USE SMARTSET 22000 06/15/202405/20, 06/02/2022, 06/16/2021, Additional history exists HbA1c 07/21/2024 01/19/2024, 05/20, 12/01/2022, Additional history exists TSH 09/01/2024 09/01/2023, 05/20, 08/20/2020, Additional history exists DTaP,Tdap,and Td Vaccines (2 - Td or Tdap) 11/14/2024 11/14/2014 Albumin/Creatinine Ratio 01/18/2025 024, 12/01/2022, 02/05/2022, Additional history exists CKD HGB USE SMARTSET 27285 01/18/202501/18, 01/19/2024, 09/01/2023, Additional history exists Pneumococcal Vaccine: 65+ Years [...] this encounter Medical Devices Implanted Type Area Dry Yard Worker Device Identifier Shelf Expiration Date Model / Serial / Lot Balloon Cath Pacing [id number] - [id number] Implanted:Qty: 1 on 06/24/2021 at [facility] : MEDICAL [id number] 01/15/2023 [id number] / / [id number] Valve Aort Evolut Proplus 26mm - [id number] Implanted:Qty: 1 on 06/24/2021 at [facility] [place] [employer] : CARDIAC SURGERY [id number] 02/11/2022 EVPROPLUS- 26US / [id number] / [id number] Lead Tempo Temp Pacing - [id number] Implanted:Qty: 1 on 06/24/2021 at [facility] [place] [employer] [id number] 01/16/2022 [id number] / / [id number]-Rf [id number] - [id number] Implanted:Qty: 1 on 06/26/2021 by Lamin Rodriguez MD at [facility] [employer] [id number] 07/18/2022 [id number] / [id number] / [id number] Lead Pace Tendril 52cm - [id number] Implanted:Qty: 1 on 06/26/2021 by Lamin Rodriguez MD at [facility] [facility] [employer] : CARDIAC RHYTHM MGMT [id number] 01/16/2024 2088TC/52 / [id number] / [id number] Lead Pace Selectsecure 3830-69 - [id number] Implanted:Qty: 1 on 06/26/2021 by Lamin Rodriguez MD at [facility] [employer] : CRM [id number] 05/05/2023 [id number] / [id number] / [id number] documented as of this encounter Advance Directives Documents on File Type Date Recorded Patient Optical Coating Technician Expl anation Power of Cylinder Press Operator Apprentice 01/28/2004 * Full Code (Latest Code Status [...] 1:24 PM 01/28/2004 1:24 PM Care Teams Control Panel Builder Relationship Specialty Start Date End Date Mariza Hill MD [address] [facility] [place] [address] PCP - General 10/01/09 documented as of this encounter
--- OUTSIDE RECORDS SUMMARY | 2024-03-02 23:56 | External Medical Summary | Summary of Care ---
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 30 Tablet 11 12/04/2021 Active OneTouch Delica Lancets 33GIndications:Type 2 diabetes mellitus with hemoglobin A1c goal of less than 7.0% ([facility]) USE TO TEST ONCE DAILY. 100 Each 3 01/14/2023 Active OneTouch Ultra In Vitro Strip (Glucose Blood) Use to test once daily. Dx E11.9 100 Strip 5 01/25/2023 Active Nitroglycerin 0.4 MG Sublingual Tablet Sublingual (Nitrostat)Indicati ons:Chest pain, unspecified type DISSOLVE 1 TABLET UNDER THE TONGUE EVERY 5 MINUTES NEEDED FOR CHEST PAIN. 25 Tablet 3 02/27/2023 Active Albuterol Sulfate HFA 108 (90 Base) MCG/ACT Inhalation Aerosol SolutionIndications :Bronchitis, complicated Inhale 2 Puffs by mouth every 4 hours as needed for Wheezing. 6.7 g 5 03/12/2023 Active DIURETIC TITRATION PLANIndications:Dys pnea on exertion,Acute on chronic diastolic (congestive) heart failure (HCC) If no improvement on day 3, contact heart failure managing provider. 1 Each 03/25/2023 Active Levothyroxine Sodium 25 MCG Oral Tablet (Levoxyl) Take 1 Tablet by mouth in the morning. (at least 30 min prior to breakfast or other meds). 90 Tablet 1 08/30/2023 Active Atorvastatin Calcium 80 MG Oral Tablet (Lipitor)Indication s:Aortocoronary bypass status,Dyslipidemia , goal LDL below 100 Take 1 Tablet by mouth in the morning. 90 Tablet 3 09/13/2023 Active buPROPion HCl ER (SR) 150 MG Oral Tablet Extended Release 12 Hour (Wellbutrin SR)Indications:Depr ession, unspecified depression type Take 1 Tablet by mouth in the morning and 1 Tablet before bedtime. 180 Tablet 3 09/13/2023 Active Furosemide 40 MG Oral Tablet (Lasix)Indications: Dyspnea on exertion,Acute on chronic diastolic (congestive) [...] Chloride ER 20 MEQ Oral Tablet Extended ReleaseIndications: Dyspnea on exertion,Acute on chronic diastolic (congestive) heart failure (HCC) TAKE 1 TABLET BY MOUTH EVERY DAY IN THE MORNING 90 Tablet 3 09/13/2023 Active Vitron-C 65-125 MG Oral Tablet (Iron-Vitamin C 65-125 mg per tab)Indications:Oth er iron deficiency anemia Take 1 Tablet by mouth every other day. 10/21/2023 Active documented as of this encounter (statuses as of 01/19/2024) Active Problems Problem Noted Date Diagnosed Date [...] as of this encounter (statuses as of 01/19/2024) Resolved Problems Problem Noted Date Diagnosed Date [...] Markers for Patients with Cardiovascular Disease Project #[id number] PI: Keya Frederick MD Please call [phone] with study related questions Chest pain 01/09/2009 07/31/2014 GENOMICS CARDIO RESEARCH OTHER*[id number] 01/09/2009 08/25/2016 Overview: Renamed Per Clinical Trials Billing Project. Study Titile: Genomic Markers for Patients with Cardiovascular Disease Project #[id number] PI: Keya Frederick MD Please call [phone] with study related questions Lyme disease 02/07/2007 [...] NEOPL PROSTATE 01/07/20042018 Overview: Radical prostatectomy @ [place] Pt c/o unavoidable "leakage" Pt agrees to [...] as of this encounter (statuses as of 01/19/2024) Immunizations Name Administration Dates Next Due COVID-19 mRNA, LNP-s, No Pre serve, 2-Dose Series ([employer]) 04/22/2021,09/25/2020,09/04/2020 COVID-19, LNP-s, No Preserve , Sincere-sucrose, Ages 12+ ([employer]) 02/11/2022 Covid-19, Mrna, Lnp-s, Pf, B ivalent, 30 Mcg, IM, 12 yrs and above ([employer]) 06/18/2022 Hepatitis B, 20+ yrs 08/27/2022,07/24/2022 Pneumococcal [...] y our heating, water, or electric bill? No 02/08/2023 Is your family able to pay t he heat, water, or electric bill? (Household - for ages 0-17 years) Not on file 02/08/2023 Does your family have access to good internet? (Household - for ages 0-17 years) Not on file 02/08/2023 Employment Status Answer Date Recorded Are you unemployed or without regular income? No 02/08/2023 Does the household have a re gular source of income? (Household - for ages 0-17 years) Not on file 02/08/2023 Social Connections Answer Date Recorded How often do you feel lonely or isolated from th ose around you? Rarely 02/08/2023 Financial Resource Strain Answer Date R ecorded [...] AM EDT Office Visit General Internal Medicine [facility] [address] [place] [address] Mariza Hill MD [address] [place] [address] 06/05/2024 3:00 PM EST Cardiac Studies Cardiac Studies, [facility] [address] [facility] [place] [address] 06/20/2024 2:00 PM EST Office Visit Cardiology, [facility] [address] [facility] [place] [address] Hien Hunt CRNP [address] [place] [address] Pending Results Name Type Priority Associated Diagnoses Date /Time HEMOGLOBIN A1C Lab Routine 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) 01/19/2024 2:57 PM EDT BASIC METABOLIC PANEL Lab Routine Bilateral leg weakness Malaise and fatigue 01/19/2024 2:57 PM EDT ALBUMIN / CREATININE RATIO, URINE Lab Routine 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) 01/19/2024 3:06 PM EDT Health Maintenance Due Date Last Done Comments Hepatitis B Vaccine (3 of 3 - 19+ 3-dose series) 01/21/2023 08/27/2022, 07/24/2022 COVID-19 Vaccine (2022- season) 2023 04/26/2023, 06/18/2022, 02/11/2022, Additional history exists Albumin/Creatinine Ratio 12/02/2023 023, 02/05/2022, 08/20/2020, Additional history exists Diabetic Foot Exam 12/02/2023 12/01/2022, 0 02/05/2022, 07/03/2021, Additional history exists HbA1c 12/14/2023 06/15/2023, 11/16, 06/02/2022, Additional history exists Depression Monitoring 02/09/2024 02/08/2023 Diabetic Eye Exam 03/09/2024 03/09/2023, , 02/05/2022, Additional history exists Influenza Vaccine (FLU shot) (#1) 2024 05/02/2023, 04/15/2022, 04/23/2021, Additional history exists CKD PHOS USE SMARTSET 82431 06/15/202405/20, 06/02/2022, 06/16/2021, Additional history exists TSH 09/01/2024 09/01/2023, 05/20, 08/20/2020, Additional history exists DTaP,Tdap,and Td Vaccines (2 - Td or Tdap) 11/14/2024 11/14/2014 CKD HGB USE SMARTSET 32000 01/18/202501/18, 01/19/2024, 09/01/2023, Additional history exists Pneumococcal [...] this encounter Medical Devices Implanted Type Area Bioinformatics Research Technician Device Identifier Shelf Expiration Date Model / Serial / Lot Balloon Cath Pacing [id number] - [id number] Implanted:Qty: 1 on 06/24/2021 at [facility] : MEDICAL [id number] 01/15/2023 [id number] / / [id number] Valve Aort Evolut Proplus 26mm - [id number] Implanted:Qty: 1 on 06/24/2021 at [facility] [place] [employer] : CARDIAC SURGERY [id number] 02/11/2022 EVPROPLUS- 26US / [id number] / [id number] Lead Tempo Temp Pacing - [id number] Implanted:Qty: 1 on 06/24/2021 at [facility] [place] [employer] [id number] 01/16/2022 [id number] / / [id number]-Rf [id number] - [id number] Implanted:Qty: 1 on 06/26/2021 by Lamin Rodriguez MD at [facility] [place] [facility] [employer] [id number] 07/18/2022 [id number] / [id number] / [id number] Lead Pace Tendril 52cm - [id number] Implanted:Qty: 1 on 06/26/2021 by Lamin Rodriguez MD at [facility] [place] [facility] [employer] : CARDIAC RHYTHM MGMT [id number] 01/16/2024 2088TC/52 / [id number] / [id number] Lead Pace Selectsecure 3830-69 - [id number] Implanted:Qty: 1 on 06/26/2021 by Lamin Rodriguez MD at [facility] [place] [employer] : CRM [id number] 05/05/2023 [id number] / [id number] / [id number] documented as of this encounter Procedures Procedure Name Priority Date/Time Associated Diagnosis Comments DIFFERENTIAL, AUTOMATED Routine 01/19/2024 2:57 PM EDT Bilateral leg weakness Malaise and fatigue CBC Routine 01/19/2024 2:57 PM EDT Bilateral leg weakness Malaise and fatigue CBC Routine 01/19/2024 2:57 PM EDT Bilateral leg weakness Malaise and fatigue documented in this encounter Results * DIFFERENTIAL, AUTOMATED (01/19/2024 2:57 PM EDT) Pathologist [facility] WBC 8.04 4.00 - 10.80 K/uL 01/19/2024 3:03 PM EDT [facility] 56-02 Neutrophils % 66.0 40.0 - 75.0 % 01/19/2024 3:03 PM EDT [facility] 56-02 Lymphocytes % 21.4 18.0 - 42.0 % 01/19/2024 3:03 PM EDT [facility] 56-02 Monocytes % 9.8 1.0 - 11.0 % 01/19/2024 3:03 PM EDT [facility] 56-02 Eosinophils % 2.2 0.0 - 6.0 % 01/19/2024 3:03 PM EDT [facility] 56-02 Basophils % 0.6 0.0 - 2.0 % 01/19/2024 3:03 PM EDT [facility] 56-02 Absolute Neutrophils 5.30 1.80 - 7.70 K/uL 01/19/2024 3:03 PM EDT [facility] 56-02 Absolute Lymphocytes 1.72 1.00 - 4.80 K/ul 01/19/2024 3:03 PM EDT [facility] [place] 56-02 Absolute Monocytes 0.79 0.00 - 1.10 K/uL 01/19/2024 3:03 PM EDT [facility] 56-02 Absolute Eosinophils 0.18 0.00 - 0.70 K/uL 01/19/2024 3:03 PM EDT [facility] 56-02 Absolute Basophils 0.05 0.00 - 0.20 K/uL 01/19/2024 3:03 PM EDT [facility] 56-02 Blood Venous blood specimen / Unknown Venipuncture / Unknown 01/19/2024 2:57 PM EDT 01/19/2024 2:58 PM EDT Mariza Hill MD LAB BLOOD ORDERA BLES [facility] [address] [place] [id number] * (ABNORMAL) CBC (01/19/2024 2:57 PM EDT) WBC 8.04 4.00 - 10.80 K/uL 01/19/2024 3:03 PM EDT [facility] 56 RBC 4.07 4.50 - 5.25 M/uL 01/19/2024 3:[address] HGB 12.4(L) 14.0 - 16.8 g/dL 01/19/2024 3:03 PM EDT [facility] 56 HCT 38.7(L) 40.0 - 48.4 % 01/19/2024 3:03 PM EDT [facility] 56 MCV 95.1 82.0 - 99.5 fL 01/19/2024 3:03 PM EDT [facility] 56 MCH 30.5 27.0 - 34.0 pg 01/19/2024 3:03 PM EDT [facility] 56 MCHC 32.0 32.0 - 36.0 g/dL 01/19/2024 3:03 PM EDT [facility] 56 RDW 14.9 11.5 - 15.5 % 01/19/2024 3:03 PM EDT [facility] 56 PLT 162 140 - 400 K/uL 01/19/2024 3:03 PM EDT [facility] 56 MPV 11.3 6.6 - 11.1 fL 01/19/2024 3:03 PM EDT [facility] 56 Blood Venous blood specimen / Unknown Venipuncture / Unknown 01/19/2024 2:57 PM EDT 01/19/2024 2:58 PM EDT Mariza Hill MD LAB BLOOD [address] [place] [address] [address] [place] [address] documented in this encounter Visit Diagnoses Diagnosis 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
--- OUTSIDE RECORDS SUMMARY | 2024-03-02 23:56 | External Medical Summary ---
Author Name Unknown Address Unknown Organization K01:LABORATORY [facility] - [address] [facility] [place] [address] Laboratory Report Ordering Provider Test Date Status JENNIFER CASTILLOISO 02/22/2024 12:14:23 Final Observation Date Value Abnormality Reference (Units ) Status Triglyceride 02/22/2024 12:14:23 104 <=174 ( mg/dL) Final Triglyceride Reference Range s (mg/dL):
<150 Acceptable
150-174 Borderline high
175-499 High
>=500 Very high Cholesterol 02/22/2024 12:14:23 152 <200 (mg /dL) Final Total Cholesterol Reference Ranges (mg/dL):
<200 Desirable
200-239 Borderline high
>=240 High HDL 02/22/2024 12:14:23 49 >39 (mg/dL ) Final HDL Cholesterol Reference Ra nges (mg/dL):
>=60 High (Desirable)
<50 Low (Undesirable) For Females
<40 Low (Undesirable) For Males NON-HDL CHOLESTEROL 02/22/2024 12:14:23 103 <=159 (mg/dL) Final Non-HDL Cholesterol Referenc e Range (mg/dL):
<100 Target level for high risk ASCVD patient
<130 Optimal for general population
130-159 Near optimal for general population
160-189 Borderline High
190-219 High
>=220 Very High LDL, (calculated) 02/22/2024 12:14:23 82 <= 129 (mg/dL) Final LDL Cholesterol Reference Ra nges (mg/dL):
<70 Target level for high risk ASCVD patient
<100 Optimal for general population
100-129 Near optimal for general population
130-159 Borderline high
160-189 High
>=190 Very high Performing Location LABORATORY [facility] - [address] [facility] [address]
--- OUTSIDE RECORDS SUMMARY | 2024-03-02 23:56 | External Medical Summary | Summary of Care ---
Author Name Unknown Organization [facility] Address [address] [place] [address] Phone [phone] Care Team Providers Care Tile Picker Name Role Phone Mariza Hill MD Primary Care Provider + Reason for Visit * Reason Comments Outpatient Testing Encounter Details Date Type Department Care Team (Late st Contact Info) Description 02/22/2024 12:10 PM EDT Laboratory Laboratory [facility] [address] [place] [id number] [place], [address] [place] [address] Chronic diastolic CHF (congestive heart failure), NYHA class 3 ([facility]); Stenosis of prosthetic aortic valve, subsequent encounter; S/P TAVR (transcatheter aortic valve replacement); HFrEF (heart failure with reduced ejection fraction) ([facility]); CHB (complete heart block) ([facility]); Cardiac pacemaker in situ; Coronary artery disease involving [place] gra[place] coronary artery of [place] heart without angina pectoris; Dyslipidemia, goal LDL below 70; Iron deficiency anemia, unspecified iron deficiency anemia type; Tick bite, unspecified site, subsequent encounter; Malaise and fatigue Allergies Active Allergy Reactions Criticality Noted Date Comments Penicillins 07/05/2001 jointpain documented as of this encounter (statuses as of 02/22/2024) Medications Medication Sig Dispensed Refills Start Date [...] hemoglobin A1c goal of less than 7.0% ([facility]) USE TO TEST ONCE DAILY. [...] once daily 30 Tablet 5 02/22/2024 Active documented as of this encounter (statuses as of 02/22/2024) Active Problems Problem Noted Date Diagnosed Date [...] as of this encounter (statuses as of 02/22/2024) Resolved Problems Problem Noted Date Diagnosed Date [...] # PI: Keya Frederick MD Please call [phone] with study related questions Chest pain 01/09/2009 07/31/2014 GENOMICS CARDIO RESEARCH OTHER*[id number] 01/09/2009 08/25/2016 Overview: Renamed Per Clinical Trials Billing Project. Study Titile: Genomic Markers for Patients with Cardiovascular Disease Project # PI: Keya Frederick MD Please call [phone] with study related questions Lyme disease 02/07/2007 [...] NEOPL PROSTATE 01/07/20042018 Overview: Radical prostatectomy @ [place] Pt c/o unavoidable "leakage" Pt agrees to [...] as of this encounter (statuses as of 02/22/2024) Immunizations Name Administration Dates Next Due COVID-19 mRNA, LNP-s, No Pre serve, 2-Dose Series ([employer]) 04/22/2021,09/25/2020,09/04/2020 COVID-19, LNP-s, No Preserve , Sincere-sucrose, [...] Team (Late st Contact Info) Description 02/23/2024 8:30 AM EDT Cardiac Studies Cardiac Studies, [facility] [address] [place] [address] 06/05/2024 3:00 PM EST Cardiac Studies Cardiac Studies, [facility] [address] [place] [address] 06/20/2024 2:00 PM EST Office Visit Cardiology, [facility] [address] [place] [address] Hien Hunt CRNP [address] [place] [address] 09/07/2024 1:40 PM EST Office Visit General Internal Medicine [facility] [address] [place] [address] Mariza Hill MD [address] [facility] [place] [address] Pending Results Name Type Priority Associated Diagnoses Date /Time LIPID PANEL WITH DIRECT LDL IF TG IS HIGH Lab Routine Chronic diastolic CHF (congestive heart failure), NYHA class 3 (HCC) Stenosis of prosthetic aortic valve, 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) HFrEF (heart failure with reduced ejection fraction) (HCC) CHB (complete heart block) (HCC) Cardiac pacemaker in situ Coronary artery disease involving [place] coronary artery of [place] heart without angina pectoris Dyslipidemia, goal LDL below 70 02/22/2024 12:14 PM EDT CBC WITH WBC DIFFERENTIAL Lab Routine Iron deficiency anemia, unspecified iron deficiency anemia type 02/22/2024 12:14 PM EDT FERRITIN Lab Routine Iron deficiency anemia, unspecified iron deficiency anemia type 02/22/2024 12:14 PM EDT IRON SCREEN, INCLUDING TIBC Lab Routine Iron deficiency anemia, unspecified iron deficiency anemia type 02/22/2024 12:14 PM EDT LYME DISEASE ANTIBODY SCREEN WITH REFLEX TO CONFIRMATION Lab Routine Tick bite, unspecified site, subsequent encounter 02/22/2024 12:14 PM EDT TSH WITH FREE T4 IF INDICATED Lab Routine Malaise and fatigue 02/22/2024 12:14 PM EDT CBC Lab Routine Iron deficiency anemia, unspecified iron deficiency anemia type 02/22/2024 12:14 PM EDT DIFFERENTIAL, AUTOMATED Lab Routine Iron deficiency anemia, unspecified iron deficiency anemia type 02/22/2024 12:14 PM EDT LYME DISEASE ANTIBODY SCREEN Lab Routine Tick bite, unspecified site, subsequent encounter 02/22/2024 12:14 PM EDT Health Maintenance Due Date Last Done Comments COVID-19 Vaccine ( season) 2023 04/26/2023, 06/18/2022, 02/11/2022, Additional history exists Depression Monitoring 02/09/2024 02/08/2023 Diabetic Eye Exam 03/09/2024 03/09/2023, , 02/05/2022, Additional history exists Influenza Vaccine (FLU shot) (#1) 2024 05/02/2023, 04/15/2022, 04/23/2021, Additional history exists CKD PHOS USE SMARTSET 57590 06/15/202405/20, 06/02/2022, 06/16/2021, Additional history exists HbA1c 07/21/2024 01/19/2024, 05/20, 12/01/2022, Additional history exists TSH 09/01/2024 09/01/2023, 05/20, 08/20/2020, Additional history exists DTaP,Tdap,and Td Vaccines (2 - Td or Tdap) 11/14/2024 11/14/2014 Albumin/Creatinine Ratio 01/18/2025 024, 12/01/2022, 02/05/2022, Additional history exists CKD HGB USE SMARTSET 53860 01/18/202501/18, 01/19/2024, 09/01/2023, Additional history exists Diabetic Foot Exam 02/21/2025 02/22/2024, 0 12/01/2022, 02/05/2022, Additional history exists Pneumococcal Vaccine: 65+ Years [...] this encounter Medical Devices Implanted Type Area Assembling Motor Builder Device Identifier Shelf Expiration Date Model / Serial / Lot Balloon Cath Pacing [id number] - [id number] Implanted:Qty: 1 on 06/24/2021 at [facility]IAC LAB[facility] BARD : MEDICAL [id number] 01/15/2023 [id number] / / [id number] Valve Aort Evolut Proplus 26mm - [id number] Implanted:Qty: 1 on 06/24/2021 at [facility] LAB[facility] [employer] : CARDIAC SURGERY [id number] 02/11/2022 EVPROPLUS- 26US / [id number] / [id number] Lead Tempo Temp Pacing - [id number] Implanted:Qty: 1 on 06/24/2021 at [facility]AC LABS [facility] [employer] [id number] 01/16/2022 [id number] / / [id number]-Rf [id number] - [id number] Implanted:Qty: 1 on 06/26/2021 by Lamin Rodriguez MD at [facility]ARDIAC LAB[facility] [employer] [id number] 07/18/2022 [id number] / [id number] / [id number] Lead Pace Tendril 52cm - [id number] Implanted:Qty: 1 on 06/26/2021 by Lamin Rodriguez MD at [facility]ARDIAC LABS [facility] [employer] : CARDIAC RHYTHM MGMT [id number] 01/16/2024 2088TC/52 / [id number] / [id number] Lead Pace Selectsecure 3830-69 - [id number] Implanted:Qty: 1 on 06/26/2021 by Lamin Rodriguez MD at CARDIAC LABS [facility] [employer] : CRM [id number] 05/05/2023 [id number] / [id number] / [id number] documented as of this encounter Visit Diagnoses Diagnosis Chronic diastolic CHF (congestive heart failure), NYHA class 3 ([facility]) Chronic diastolic heart failure Stenosis of prosthetic aortic valve, 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) Heart valve replaced by other means HFrEF (heart failure with reduced ejection fraction) ([facility]) CHB (complete heart block) ([facility]) Atrioventricular block, complete Cardiac pacemaker in situ Coronary artery disease involving [place] coronary artery of [place] heart without angina pectoris Dyslipidemia, goal LDL below 70 Other and unspecified hyperlipidemia Iron deficiency anemia, unspecified iron deficiency anemia type Tick bite, unspecified site, subsequent encounter Malaise and fatigue Other malaise and fatigue documented in this encounter Advance Directives Documents on File Type Date Recorded Patient Developer Prover Mechanical Expl anation Power of Patternator 01/28/2004 * Full Code (Latest Code Status [...] 1:24 PM 01/28/2004 1:24 PM Care Teams Tile Picker Relationship Specialty Start Date End Date Mariza Hill MD [address] [place] [address] PCP - General 10/01/09 documented as of this encounter
--- OUTSIDE RECORDS SUMMARY | 2024-03-02 23:56 | External Medical Summary | Summary of Care ---
Author Name Unknown Organization [facility] Address [address] [place] [address] Phone [phone] Care Team Providers Care Regulation Supervisor Name Role Phone Mariza Hill MD Primary Care Provider + Reason for Visit * Reason Onset Date Comments Medical Questions 02/24/2024 Abx Encounter Details Date Type Department Care Team (Late st Contact Info) Description 02/24/2024 Telephone General Internal Medicine [facility] [address] [facility] [place] [address] Mariza Hill MD [address] [facility] [place] [id number] Medical Questions (Abx ) Allergies Active Allergy Reactions Criticality Noted Date Comments Penicillins 07/05/2001 jointpain documented as of this encounter (statuses as of 02/24/2024) Medications Medication Sig Dispensed Refills Start Date [...] hemoglobin A1c goal of less than 7.0% ([facility]) USE TO TEST ONCE DAILY. 100 Each [...] as of this encounter (statuses as of 02/24/2024) Active Problems Problem Noted Date Diagnosed Date [...] as of this encounter (statuses as of 02/24/2024) Resolved Problems Problem Noted Date Diagnosed Date [...] Markers for Patients with Cardiovascular Disease Project #[id number] PI: Keya Frederick MD Please call [phone] with study related questions Chest pain 01/09/2009 07/31/2014 GENOMICS CARDIO RESEARCH OTHER*[id number] 01/09/2009 08/25/2016 Overview: Renamed Per Clinical Trials Billing Project. Study Titile: Genomic Markers for Patients with Cardiovascular Disease Project #[id number] PI: Keya Frederick MD Please call [phone] with study related questions Lyme disease 02/07/2007 [...] NEOPL PROSTATE 01/07/20042018 Overview: Radical prostatectomy @ [place] Pt c/o unavoidable "leakage" Pt agrees to [...] as of this encounter (statuses as of 02/24/2024) Immunizations Name Administration Dates Next Due COVID-19 mRNA, LNP-s, No Pre serve, 2-Dose Series ([employer]) 04/22/2021,09/25/2020,09/04/2020 COVID-19, LNP-s, No Preserve , Sincere-sucrose, [...] encounter Miscellaneous Notes * Telephone Encounter - Eloise Sauceda RPh - 02/24/2024 1:43 PM EDT Images from the original note were not included. Patient calling in inquiring whether or not he should take clindamycin pre med prior to dental worklater today after being prescribed doxycycline for tick bite on 02/23/24. Per uptodate: Advised patient that doxycyline appears to be an alternative regimen for patients with cardiac riskfactors undergoing dental procedures. Advised patient that clindamycin is not necessary, however to follow up with dentist to make sure they are in agreement. Thank you, Eloise Sauceda PharmD Clinical Pharmacist [facility] 02/24/24 1:59 PM [phone] * Telephone Encounter - Mary Ann Lim PHARM Tech - 02/24/2024 1:40 PM EDT Pt calling stating he is taking an abx for lyme disease and has a dental appt. Pt wants to know should he take additional abx for procedure. Transferring to clinical pharmacist. Thank you, Mary Ann Lim [facility] Camouflage Specialist II [facility] ([facility]) 02/24/2024, 1:41 PM' documented in this encounter Plan of Treatment Upcoming Encounters Date Type Department Care Team (Late st Contact Info) Description 06/20/2024 2:00 PM EST Office Visit Cardiology, [facility] [address] [place] [address] Hien Hunt CRNP [address] [place] [address] 09/07/2024 1:40 PM EST Office Visit General Internal Medicine [facility] [place] [address] [facility] [place] [address] Mariza Hill MD [address] [facility] [place] [address] Health Maintenance Due Date Last Done Comments COVID-19 Vaccine ( season) 2023 04/26/2023, 06/18/2022, 02/11/2022, Additional history exists Adult Wellness Visit 02/09/2024 02/08/2023, 02/05/2022, 02/04/2021 Depression Monitoring 02/09/2024 02/08/2023 Diabetic Eye Exam 03/09/2024 03/09/2023, , 02/05/2022, Additional history exists Influenza Vaccine (FLU shot) (#1) 2024 05/02/2023, 04/15/2022, 04/23/2021, Additional history exists CKD PHOS USE SMARTSET 58616 06/15/2024 11/2 02/2023, 06/02/2022, 06/16/2021, Additional history exists HbA1c 07/21/2024 01/19/2024, 05/20, 12/01/2022, Additional history exists DTaP,Tdap,and Td Vaccines (2 - Td or Tdap) 11/14/2024 11/14/2014 Albumin/Creatinine Ratio 01/18/2025 024, 12/01/2022, 02/05/2022, Additional history exists CKD HGB USE SMARTSET 20146 02/21/202502/21, 02/22/2024, 01/19/2024, Additional history exists Diabetic [...] this encounter Medical Devices Implanted Type Area Rules Examiner Device Identifier Shelf Expiration Date Model / Serial / Lot Balloon Cath Pacing [id number] - [id number] Implanted:Qty: 1 on 06/24/2021 at [facility] [employer] [employer] : MEDICAL [id number] 01/15/2023 [id number] / / [id number] Valve Aort Evolut Proplus 26mm - [id number] Implanted:Qty: 1 on 06/24/2021 at [facility] [employer] : CARDIAC SURGERY [id number] 02/11/2022 EVPROPLUS- 26US / [id number] / [id number] Lead Tempo Temp Pacing - [id number] Implanted:Qty: 1 on 06/24/2021 at [facility] [employer] [id number] 01/16/2022 [id number] / / [id number]-Rf [id number] - [id number] Implanted:Qty: 1 on 06/26/2021 by Lamin Rodriguez MD at [facility] [employer] [id number] 07/18/2022 [id number] / [id number] / [id number] Lead Pace Tendril 52cm - [id number] Implanted:Qty: 1 on 06/26/2021 by Lamin Rodriguez MD at [facility] [employer] : CARDIAC RHYTHM MGMT [id number] 01/16/2024 2088TC/52 / [id number] / [id number] Lead Pace Selectsecure 3830-69 - [id number] Implanted:Qty: 1 on 06/26/2021 by Lamin Rodriguez MD at [facility] [employer] : CRM [id number] 05/05/2023 [id number] / [id number] / [id number] documented as of this encounter Advance Directives Documents on File Type Date Recorded Patient Biofuels Processing Technician Expl anation Power of Special Education Resource Room Teacher 01/28/2004 * Full Code (Latest Code Status [...] 1:24 PM 01/28/2004 1:24 PM Care Teams Regulation Supervisor Relationship Specialty Start Date End Date Mariza Hill MD [address] [place] [address] [place] [address] PCP - General 10/01/09 documented as of this encounter
--- OUTSIDE RECORDS SUMMARY | 2024-03-02 23:56 | External Medical Summary ---
Author Name Unknown Address Unknown Organization K09:[facility]AT[facility] [place] [address] Laboratory Report Ordering Provider Test Date Status TAJ PRITCHARD 02/22/2024 12:14:23 Final Observation Date Value Abnormality Reference (Units ) Status SYNC LEUKOCYTES IN BLOOD BY AUTOMATED COUNT 02/22/2024 12:14:23 7.56 4.00-10.80 (K/uL) Final Segs 02/22/2024 12:14:23 67.0 40.0-75.0 (%) Final Lymphs % 02/22/2024 12:14:23 20.9 18.0-42.0 (%) Final Monos 02/22/2024 12:14:23 9.8 1.0-11.0 (%) Final Eosinophils 02/22/2024 12:14:23 2.0 0.0-6.0 (%) Final Basos 02/22/2024 12:14:23 0.3 0.0-2.0 (%) Final Absolute Segs 02/22/2024 12:14:23 5.07 1.80-7.70 (K/uL) Final Lymphs, absolute 02/22/2024 12:14:23 1.58 1.00-4.80 (K/ul) Final Monos, Abs 02/22/2024 12:14:23 0.74 0.00-1.10 (K/uL) Final Eos, Abs 02/22/2024 12:14:23 0.15 0.00-0.70 (K/uL) Final Basos, Abs 02/22/2024 12:14:23 0.02 0.00-0.20 (K/uL) Final Performing Location [facility] [place] [address]
--- OUTSIDE RECORDS SUMMARY | 2024-03-02 23:56 | External Medical Summary | Summary of Care ---
Author Name Unknown Organization [facility] Address [address] [place] [address] Phone [phone] Care Team Providers Care Project Manager Industrial Name Role Phone Mariza Hill MD Primary Care Provider + Reason for Visit * Reason Comments Outpatient Testing Encounter Details Date Type Department Care Team (Late st Contact Info) Description 01/19/2024 3:00 PM EDT [facility] [address] [place] [id number] [place], Lab Scenery [address] [place] [address] Type 2 diabetes mellitus with peripheral vascular [...] hemoglobin A1c goal of less than 7.0% ([facility]) USE TO TEST ONCE DAILY. 100 Each [...] Markers for Patients with Cardiovascular Disease Project #[id number] PI: Keya Frederick MD Please call [phone] with study related questions Chest pain 01/09/2009 07/31/2014 GENOMICS CARDIO RESEARCH OTHER*[id number] 01/09/2009 08/25/2016 Overview: Renamed Per Clinical Trials Billing Project. Study Titile: Genomic Markers for Patients with Cardiovascular Disease Project #[id number] PI: Keya Frederick MD Please call [phone] with study related questions Lyme disease 02/07/2007 [...] NEOPL PROSTATE 01/07/20042018 Overview: Radical prostatectomy @ [place] Pt c/o unavoidable "leakage" Pt agrees to [...] mRNA, LNP-s, No Pre serve, 2-Dose Series ([employer]) 04/22/2021,09/25/2020,09/04/2020 COVID-19, LNP-s, No Preserve , Sincere-sucrose, Ages 12+ ([employer]) 02/11/2022 Covid-19, Mrna, Lnp-s, Pf, B ivalent, 30 Mcg, IM, 12 yrs and above ([employer]) 06/18/2022 Hepatitis B, 20+ yrs 08/27/2022,07/24/2022 Pneumococcal [...] AM EDT Office Visit General Internal Medicine [facility] [address] [place] [address] Mariza Hill MD [address] [place] [address] 06/05/2024 3:00 PM EST Cardiac Studies Cardiac Studies, [facility] [address] [facility] [place] [address] 06/20/2024 2:00 PM EST Office Visit Cardiology, [facility] [address] [facility] [place] [address] Hien Hunt CRNP [address] [place] [address] Pending Results Name Type Priority Associated Diagnoses [...] Additional history exists CKD PHOS USE SMARTSET 23170 06/15/202405/20, 06/02/2022, 06/16/2021, Additional history exists TSH 09/01/2024 09/01/2023, 05/20, 08/20/2020, Additional history exists DTaP,Tdap,and Td Vaccines (2 - Td or Tdap) 11/14/2024 11/14/2014 CKD HGB USE SMARTSET 99751 01/18/202501/18, 01/19/2024, 09/01/2023, Additional history exists Pneumococcal [...] this encounter Medical Devices Implanted Type Area Beamster Device Identifier Shelf Expiration Date Model / Serial / Lot Balloon Cath Pacing [id number] - [id number] Implanted:Qty: 1 on 06/24/2021 at [facility] : MEDICAL [id number] 01/15/2023 [id number] / / [id number] Valve Aort Evolut Proplus 26mm - [id number] Implanted:Qty: 1 on 06/24/2021 at [facility] [employer] : CARDIAC SURGERY [id number] 02/11/2022 EVPROPLUS- 26US / [id number] / [id number] Lead Tempo Temp Pacing - [id number] Implanted:Qty: 1 on 06/24/2021 at [facility] [employer] [id number] 01/16/2022 [id number] / / [id number]-Rf [id number] - [id number] Implanted:Qty: 1 on 06/26/2021 by Lamin Rodriguez MD at [facility] [employer] [id number] 07/18/2022 [id number] / [id number] / [id number] Lead Pace Tendril 52cm - [id number] Implanted:Qty: 1 on 06/26/2021 by Lamin Rodriguez MD at [facility] [employer] : CARDIAC RHYTHM MGMT [id number] 01/16/2024 [id number]/52 / [id number] / [id number] Lead Pace [employer] 3830-69 - [id number] Implanted:Qty: 1 on 06/26/2021 by Lamin Rodriguez MD at [facility] [employer] : CRM [id number] 05/05/2023 [id number] / [id number] / [id number] documented as of this encounter Procedures Procedure Name Priority Date/Time Associated Diagnosis Comments DIFFERENTIAL, AUTOMATED Routine 01/19/2024 2:57 PM EDT Bilateral leg weakness Malaise and fatigue CBC Routine 01/19/2024 2:57 PM EDT Bilateral leg weakness Malaise and fatigue CBC Routine 01/19/2024 2:57 PM EDT Bilateral leg weakness Malaise and fatigue documented in this encounter Results * DIFFERENTIAL, AUTOMATED (01/19/2024 2:57 PM EDT) Pathologist [facility] WBC 8.04 4.00 - 10.80 K/uL 01/19/2024 3:03 PM EDT [facility] 56-02 Neutrophils % 66.0 40.0 - 75.0 % 01/19/2024 3:03 PM EDT [facility] 56-02 Lymphocytes % 21.4 18.0 - 42.0 % 01/19/2024 3:03 PM EDT [facility] 56-02 Monocytes % 9.8 1.0 - 11.0 % 01/19/2024 3:03 PM EDT [facility] 56-02 Eosinophils % 2.2 0.0 - 6.0 % 01/19/2024 3:03 PM EDT [facility] 56-02 Basophils % 0.6 0.0 - 2.0 % 01/19/2024 3:03 PM EDT [facility] 56-02 Absolute Neutrophils 5.30 1.80 - 7.70 K/uL 01/19/2024 3:03 PM EDT [facility] 56-02 Absolute Lymphocytes 1.72 1.00 - 4.80 K/ul 01/19/2024 3:03 PM EDT [facility] [place] [facility]-02 Absolute Monocytes 0.79 0.00 - 1.10 K/uL 01/19/2024 3:03 PM EDT [facility] 56-02 Absolute Eosinophils 0.18 0.00 - 0.70 K/uL 01/19/2024 3:03 PM EDT [facility] 56-02 Absolute Basophils 0.05 0.00 - 0.20 K/uL 01/19/2024 3:03 PM EDT [facility] 56-02 Blood Venous blood specimen / Unknown Venipuncture / Unknown 01/19/2024 2:57 PM EDT 01/19/2024 2:58 PM EDT Mariza Hill MD LAB BLOOD [facility] [address] [place] [id number] * (ABNORMAL) CBC (01/19/2024 2:57 PM EDT) WBC 8.04 4.00 - 10.80 K/uL 01/19/2024 3:03 PM EDT [facility] 56 RBC 4.07 4.50 - 5.25 M/uL 01/19/2024 3:03 PM EDT [address] HGB 12.4(L) 14.0 - 16.8 g/dL 01/19/2024 3:03 PM EDT [facility] 56 HCT 38.7(L) 40.0 - 48.4 % 01/19/2024 3:03 PM EDT [facility] 56 MCV 95.1 82.0 - 99.5 fL 01/19/2024 3:03 PM EDT [facility] 56 MCH 30.5 27.0 - 34.0 pg 01/19/2024 3:03 PM EDT [facility] 56 MCHC 32.0 32.0 - 36.0 g/dL 01/19/2024 3:03 PM EDT [facility] 56 RDW 14.9 11.5 - 15.5 % 01/19/2024 3:03 PM EDT [facility] 56 PLT 162 140 - 400 K/uL 01/19/2024 3:03 PM EDT [facility] 56 MPV 11.3 6.6 - 11.1 fL 01/19/2024 3:03 PM EDT [facility] 56 Blood Venous blood specimen / Unknown Venipuncture / Unknown 01/19/2024 2:57 PM EDT 01/19/2024 2:58 PM EDT Mariza Hill MD LAB BLOOD [address] [place] [id number] [address] [place] [address] documented in this encounter Visit Diagnoses Diagnosis 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
--- OUTSIDE RECORDS SUMMARY | 2024-03-02 23:56 | External Medical Summary ---
Author Name Unknown Address Unknown Organization K01:LABORATORY [facility] - [address] [facility] [address] Laboratory Report Ordering Provider Test Date Status TAJ PRITCHARD 02/22/2024 12:14:23 Final Observation Date Value Abnormality Reference (Units ) Status Borrelia burgdorferi IgM Ab [Presence] in Serum 02/22/2024 12:14:23 Negative Negative Final Borrelia burgdorferi IgG Ab [Presence] in Serum 02/22/2024 12:14:23 Positive Abnormal Negative Final LYME IGM/IGG CONFIRMATION INTERPRETATION- [facility] 02/22/2024 12:14:23 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 IgG-class antibodies may remain detectable for months to years following resolution of infection. Results should NOT be used to monitor or establish adequate response to therapy. Response to therapy is confirmed through resolution of clinical symptoms; additional laboratory testing should not be performed.

Test results reported to [facility]. Performing Location LABOR[facility] [address] [facility] [address]
--- OUTSIDE RECORDS SUMMARY | 2024-03-02 23:56 | External Medical Summary | Summary of Care ---
Author Name Unknown Organization [facility] Address [address] [place] [address] Phone [phone] Care Team Providers Care Process Improvement Engineer Name Role Phone Mariza Hill MD Primary Care Provider + Reason for Visit * Reason Comments Re-Check 6 month returnFeels more SOB & weak - especially in the morningNumbness in fingers sometimes Encounter Details Date Type Department Care Team (Late st Contact Info) Description 02/22/2024 11:00 AM EDT Office Visit General Internal Medicine [facility] [address] [facility] [place] [address] Mariza Hill MD [address] [place] [address] Tick bite, unspecified site, subsequent encounter*; 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 30 Tablet 11 12/04/2021 Active OneTouch Delica Lancets 33GIndications:Ty pe 2 diabetes mellitus with hemoglobin A1c goal of less than 7.0% ([facility]) USE TO TEST ONCE DAILY. 100 Each 3 01/14/2023 Active OneTouch Ultra In Vitro Strip (Glucose Blood) Use to test once daily. Dx E11.9 100 Strip 5 01/25/2023 Active Nitroglycerin 0.4 MG Sublingual Tablet Sublingual (Nitrostat)Indica tions:Chest pain, unspecified type DISSOLVE 1 TABLET UNDER THE TONGUE EVERY 5 MINUTES NEEDED FOR CHEST PAIN. 25 Tablet 3 02/27/2023 Active Albuterol Sulfate HFA 108 (90 Base) MCG/ACT Inhalation Aerosol SolutionIndicatio ns:Bronchitis, complicated Inhale 2 Puffs by mouth every 4 hours as needed for Wheezing. 6.7 g 5 03/12/2023 Active DIURETIC TITRATION PLANIndications:D yspnea on exertion,Acute on chronic diastolic (congestive) heart failure (HCC) If no improvement on day 3, contact heart failure managing provider. 1 Each 03/25/2023 Active Atorvastatin Calcium 80 MG Oral Tablet (Lipitor)Indicati ons:Aortocoronary bypass status,Dyslipidem ia, goal LDL below 100 Take 1 Tablet by mouth in the morning. 90 Tablet 3 09/13/2023 Active buPROPion HCl ER (SR) 150 MG Oral Tablet Extended Release 12 Hour (Wellbutrin SR)Indications:De pression, unspecified depression type Take 1 Tablet by mouth in the morning and 1 Tablet before bedtime. 180 Tablet 3 09/13/2023 Active Furosemide 40 MG Oral Tablet (Lasix)Indication s:Dyspnea on exertion,Acute on chronic diastolic (congestive) heart failure (HCC) Take 1 Tablet by mouth in the morning. 90 Tablet 3 09/13/2023 Active metFORMIN HCl 500 MG Oral Tablet (Glucophage) TAKE 1 TABLET DAILY WITH BREAKFAST 90 Tablet 3 09/13/2023 Active Potassium Chloride ER 20 MEQ Oral Tablet Extended ReleaseIndication s:Dyspnea on exertion,Acute on chronic diastolic (congestive) heart failure (HCC) TAKE 1 TABLET BY MOUTH EVERY DAY IN THE MORNING 90 Tablet 3 09/13/2023 Active Vitron-C 65-125 MG Oral Tablet (Iron-Vitamin C 65-125 mg per tab)Indications:O ther iron deficiency anemia Take 1 Tablet by mouth every other day. 10/21/2023 Active Levothyroxine Sodium 25 MCG Oral Tablet (Levoxyl) TAKE 1 TABLET EVERY MORNINGAT LEAST 30 MINUTES PRIOR TO BREAKFAST OR OTHER MEDICATIONS 90 Tablet 1 02/16/2024 Active Metoprolol Succinate ER 25 MG Oral Tablet Extended Release 24 Hour (toPROL XL)Indications:S/ P AVR,CHB (complete heart block) (HCC),Chronic diastolic heart failure (HCC) Take 1 Tablet by mouth in the morning. 90 Tablet 3 02/22/2024 Active Metoprolol Succinate ER 25 MG Oral Tablet Extended Release 24 Hour (toPROL XL) One half pill once daily 30 Tablet 5 02/22/2024 Active Metoprolol Succinate ER 25 MG Oral Tablet Extended Release 24 Hour (toPROL XL)Indications:S/ P AVR,CHB (complete heart block) (HCC),Chronic diastolic heart failure (HCC) Take 1 Tablet by mouth in the morning. 90 Tablet 3 09/13/2023 Discontinue d(Medicatio n/Dose Changed) documented as of this encounter (statuses as [...] Markers for Patients with Cardiovascular Disease Project #[id number] PI: Keya Frederick MD Please call [phone] with study related questions Chest pain 01/09/2009 07/31/2014 GENOMICS CARDIO RESEARCH OTHER*[id number] 01/09/2009 08/25/2016 Overview: Renamed Per Clinical Trials Billing Project. Study Titile: Genomic Markers for Patients with Cardiovascular Disease Project #[id number] PI: Keya Frederick MD Please call [phone] with study related questions Lyme disease 02/07/2007 [...] NEOPL PROSTATE 01/07/20042018 Overview: Radical prostatectomy @ [facility] Pt c/o unavoidable "leakage" Pt agrees to [...] mRNA, LNP-s, No Pre serve, 2-Dose Series ([employer]) 04/22/2021,09/25/2020,09/04/2020 COVID-19, LNP-s, No Preserve , Sincere-sucrose, [...] on file documented as of this encounter Last Filed Vital Signs Vital Sign Reading Time Taken Comments Blood Pressure 98/52 02/22/2024 11:21 AM EDT Pulse 60 02/22/2024 11:21 AM EDT Temperature 37.1 C (98.7 F) 02/22/2024 11:21 AM E DT Respiratory Rate 16 02/22/2024 11:21 AM EDT Oxygen Saturation 93% 02/22/2024 11:21 AM EDT Inhaled Oxygen Concentration - - Weight 94.5 kg (208 lb 6.4 oz) 02/22/2024 11:21 AM EDT Height - - Body Mass Index 30.33 06/15/2023 3:41 PM EST documented in this encounter Functional Status Functional Status Response [...] shopping? (15 years old or older) No 12/07/20 21 Cognitive Status Response Date of Assessm ent Because of a physical, menta l, or emotional condition, do you have serious difficulty concentrating, remembering, or making decisions? (5 years old or older) No 06/24/2021 documented as of this encounter Progress Notes * Mariza Hill MD - 02/22/2024 11:49 AM EDT HPI: Tansaida Prescott is a 88 year old male who presents with: Chief Complaint Patient presents with Re-Check 6 month return Feels more SOB & weak - especially in the morning Numbness in fingers sometimes Patient is here for the recheck. Chart reviewed with the patient including current meds, last labs and HM. No acute event since we saw patient last time including no recent fall or injuries. States feels tired and BP is low today. State shad tickbite a month back on his left forearm and removed tick likely sooner. No rash. [facility] No chestpain or new sob. Does have chronic sob. States PT at home is helping him with muscle strengthening. Discussed loweing the dose of metoprolol and getting 2 D echo sooner than later. Discussed high protein diet, hydration in moderation. Feels okay emotionally. At times depressed. Discussed therapy options. Doesn't prefer at this time. No GI s/s. 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 30 Tablet 3 B-12-SL 1000 MCG Sublingual Tablet Sublingual (Cyanocobalamin) Place under the tongue 1,000 mcg daily . 30 Tablet 11 Albuterol Sulfate HFA 108 (90 Base) MCG/ACT Inhalation Aerosol Solution Inhale 2 Puffs by mouth every 4 hours as needed for Wheezing. 6.7 g 5 Atorvastatin Calcium 80 MG Oral Tablet (Lipitor) Take 1 Tablet by mouth in the morning. 90 Tablet 3 Furosemide 40 MG Oral Tablet (Lasix) Take 1 Tablet by mouth in the morning. 90 Tablet 3 metFORMIN HCl 500 MG Oral Tablet (Glucophage) TAKE 1 TABLET DAILY WITH BREAKFAST 90 Tablet 3 Potassium Chloride ER 20 MEQ Oral Tablet Extended Release TAKE 1 TABLET BY MOUTH EVERY DAY IN THE MORNING 90 Tablet 3 Vitron-C 65-125 MG Oral Tablet (Iron-Vitamin C 65-125 mg per tab) Take 1 Tablet by mouth every other day. Levothyroxine Sodium 25 MCG Oral Tablet (Levoxyl) TAKE 1 TABLET EVERY MORNINGAT LEAST 30 MINUTES PRIOR TO BREAKFAST OR OTHER MEDICATIONS 90 Tablet 1 Metoprolol Succinate ER 25 MG Oral Tablet Extended Release 24 Hour (toPROL XL) Take 1 Tablet by mouth in the morning. 90 Tablet 3 Metoprolol Succinate ER 25 MG Oral Tablet Extended Release 24 Hour (toPROL XL) One half pill once daily 30 Tablet 5 BENADRYL 25 MG PO CAPS 2 at bedtime for sleep prn Clindamycin HCl 300 MG Capsule TAKE 2 CAPSULES BY MOUTH 1 HOUR PRIOR TO DENTAL APPOINTMENT OneTouch Delica Lancets 33G USE TO TEST ONCE DAILY. 100 Each 3 OneTouch Ultra In Vitro Strip (Glucose Blood) Use to test once daily. Dx E11.9 100 Strip 5 Nitroglycerin 0.4 MG Sublingual Tablet Sublingual (Nitrostat) DISSOLVE 1 TABLET UNDER THE TONGUE EVERY 5 MINUTES NEEDED FOR CHEST PAIN. 25 Tablet 3 DIURETIC TITRATION PLAN If no improvement on day 3, contact heart failure managing provider. 1 Each0 buPROPion HCl ER (SR) 150 MG Oral Tablet Extended Release 12 Hour (Wellbutrin SR) Take 1 Tablet by mouth in the morning and 1 Tablet before bedtime. 180 Tablet 3 No current facility-administered medications for this visit. The patient's medication list was reviewed and updated as needed. Review of patient's allergies indicates: Allergen Reactions Penicillins jointpain Past Medical History: Diagnosis Date ASCVD (arteriosclerotic cardiovascular disease) Coronary atherosclerosis of [place] coronary artery Depression Diabetes mellitus, type 2 (HCC) Diverticulosis of colon 12/04/05 Hyperlipidemia Lyme disease 11/2003 Malignant neoplasm of prostate (HCC) Other cataract Other specified rickettsioses 07/03/20052003 pt went turkey hunting and developed fever and ECM- rx'd with doxycycline 100 mg QD per pt x 14 days Pt feels better Will confirm with [place] - + for RMSF- rx'd w/o sequalae per pt today 06/22 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 Social Determinants of Health Financial Resource Strain: Low Risk (02/08/2023) Financial Resource Strain Do you have any trouble paying for your medications, or do you think you might in the future? (Adult - for ages 18 years and over): No Food Insecurity: No Food Insecurity (02/08/2023) Food Insecurity Do you need food for this week? (Adult - for ages 18 years and over): No Transportation Needs: No Transportation Needs (02/08/2023) Transportation Needs Do you have trouble getting a ride to medical visits or work? (Adult - for ages 18 years and over):Never True Social Connections Housing Stability: Low Risk (02/08/2023) Housing Stability Do you currently live in a penitentiary or have no steady place to sleep at night? (Adult - for ages 18 years and over): No Do you think you are at risk of becoming homeless? (Adult - for ages 18 years and over): No Family History Problem Relation Name Age of Onset Cancer Father Colon Cancer; Liver Cancer Cancer Brother Colon Cancer Cancer Brother Colon Cancer Heart Disorder Father VT Heart Disorder Brother VT Heart Disorder Brother VT Heart Disorder Brother VT All system negative except as per hpi. OBJECTIVE: BP 98/52 | Pulse 60 | Temp 37.1 C (98.7 F) (Tympanic) | Resp 16 | Wt 94.5 kg (208 lb 6.4 oz) | SpO2 93% | BMI 30.33 kg/m | BSA 2.15 m PHYSICAL EXAM: HEENT: PERRLA, EOMI, anicteric sclera,, no lymphadenopathy, neck supple CVS: RRR, no murmurs, rubs or gallops, s1 s 2normal. RESP: clear to auscultation, no wheezing or crackles ABD: soft, NT/ND EXT: no edema, cyanosis, peripheral pulses palpable bilaterally No large joint swelling, no redness, range of motion normal. Skin normal. Gait walks with walker. 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 CHB (complete heart block) (HCC) - Metoprolol Succinate ER 25 MG Oral Tablet Extended Release 24 Hour (toPROL XL); Take 1 Tablet by mouth in the morning. Chronic diastolic heart failure (HCC) - Metoprolol Succinate ER 25 MG Oral Tablet Extended Release 24 Hour (toPROL XL); Take 1 Tablet by mouth in the morning. Malaise and fatigue - TSH WITH FREE T4 IF INDICATED; Future; Expected date: 02/22/2024 Iron deficiency anemia, unspecified iron deficiency anemia type - CBC WITH WBC DIFFERENTIAL; Future; Expected date: 02/22/2024 - FERRITIN; Future; Expected date: 02/22/2024 - IRON SCREEN, INCLUDING TIBC; Future; Expected date: 02/22/2024 Other orders - decrease Metoprolol Succinate ER 25 MG Oral Tablet Extended Release 24 Hour (toPROL XL); One halfpill once daily Mariza Hill MD * Jenny Maddox LPN - 02/22/2024 11:27 AM EDT Socks and Shoes Removed for Annual Diabetic Foot Screening RIGHT FOOT: Area of Concern: bottom of foot . RIGHT Dorsalis Pedis Pulse: Palpable RIGHT Posterior Tibial Pulse: Unable to locate RIGHT Monofilament:Patient reports feeling monofilament pressure on plantar surface of foot LEFT FOOT: Area of Concern bottom of foot LEFT Dorsalis Pedis Pulse: Palpable LEFT Posterior Tibial Pulse: Unable to locate LEFT Monofilament:Patient reports difficulty feeling monofilament at Great toe- plantar surface, Third toe-plantar surface, Ball of Foot-base of great toe, Ball of Foot-base of 3rd toe, and Ball of Foot-base of little toe Do you need diabetic shoes: N/A documented in this encounter Nursing Notes * Jenny Maddox LPN - 02/22/2024 11:19 AM EDT Re-Check (6 month return/) documented in this encounter Plan of Treatment Upcoming Encounters Date Type Department Care Team (Late st Contact Info) Description 06/05/2024 3:00 PM EST Cardiac Studies Cardiac Studies, [facility] [address] [place] [id number] 06/20/2024 2:00 PM EST Office Visit Cardiology, [facility] [address] [place] [id number] Hien Hunt CRNP [address] [facility] [place] [id number] Scheduled Orders Name Type Priority Associated Diagnoses Orde r Schedule CBC WITH WBC DIFFERENTIAL Lab Routine Iron deficiency anemia, unspecified iron deficiency anemia type Expected: 02/22/2024 (Approximate), Expires: 02/21/2025 FERRITIN Lab Routine Iron deficiency anemia, unspecified iron deficiency anemia type Expected: 02/22/2024 (Approximate), Expires: 02/21/2025 IRON SCREEN, INCLUDING TIBC Lab Routine Iron deficiency anemia, unspecified iron deficiency anemia type Expected: 02/22/2024 (Approximate), Expires: 02/21/2025 LYME DISEASE ANTIBODY SCREEN WITH REFLEX TO CONFIRMATION Lab Routine Tick bite, unspecified site, subsequent encounter Expected: 02/22/2024 (Approximate), Expires: 02/21/2025 TSH WITH FREE T4 IF INDICATED Lab Routine Malaise and fatigue Expected: 02/22/2024 (Approximate), Expires: 02/21/2025 Health Maintenance Due Date Last Done Comments COVID-19 Vaccine ( season) 2023 04/26/2023, 06/18/2022, 02/11/2022, Additional history exists Depression Monitoring 02/09/2024 02/08/2023 Diabetic Eye Exam 03/09/2024 03/09/2023, , 02/05/2022, Additional history exists Influenza Vaccine (FLU shot) (#1) 2024 05/02/2023, 04/15/2022, 04/23/2021, Additional history exists CKD PHOS USE SMARTSET 80102 06/15/202405/20, 06/02/2022, 06/16/2021, Additional history exists HbA1c 07/21/2024 01/19/2024, 05/20, 12/01/2022, Additional history exists TSH 09/01/2024 09/01/2023, 05/20, 08/20/2020, Additional history exists DTaP,Tdap,and Td Vaccines (2 - Td or Tdap) 11/14/2024 11/14/2014 Albumin/Creatinine Ratio 01/18/2025 024, 12/01/2022, 02/05/2022, Additional history exists CKD HGB USE SMARTSET 88853 01/18/202501/18, 01/19/2024, 09/01/2023, Additional history exists Diabetic [...] this encounter Medical Devices Implanted Type Area Chemistry Lab Instructor Device Identifier Shelf Expiration Date Model / Serial / Lot Balloon Cath Pacing [id number] - [id number] Implanted:Qty: 1 on 06/24/2021 at [facility] : MEDICAL [id number] 01/15/2023 [id number] / / [id number] Valve Aort Evolut Proplus 26mm - [id number] Implanted:Qty: 1 on 06/24/2021 at [facility] [employer] : CARDIAC SURGERY [id number] 02/11/2022 EVPROPLUS- 26US / [id number] / [id number] Lead Tempo Temp Pacing - [id number] Implanted:Qty: 1 on 06/24/2021 at [facility] [employer] [id number] 01/16/2022 [id number] / / [id number]-Rf [id number] - [id number] Implanted:Qty: 1 on 06/26/2021 by Lamin Rodriguez MD at [facility] [employer] [id number] 07/18/2022 [id number] / [id number] / [id number] Lead Pace Tendril 52cm - [id number] Implanted:Qty: 1 on 06/26/2021 by Lamin Rodriguez MD at [facility] [employer] : CARDIAC RHYTHM MGMT [id number] 01/16/2024 [id number] / [id number] / [id number] Lead Pace Selectsecure 3830-69 - [id number] Implanted:Qty: 1 on 06/26/2021 by Lamin Rodriguez MD at [facility] [employer] : CRM [id number] 05/05/2023 [id number] / [id number] / [id number] documented as of this encounter Visit Diagnoses Diagnosis Tick bite, unspecified site, subsequent encounter- Primary 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) S/P AVR Heart valve replaced by other means CHB (complete heart block) (HCC) Atrioventricular block, complete Chronic diastolic heart failure (HCC) Chronic diastolic heart failure Malaise and fatigue Other malaise and fatigue Iron deficiency anemia, unspecified iron deficiency anemia type documented in this encounter Advance Directives Documents on File Type Date Recorded Patient Navigating Officer Expl anation Power of Turner Splitter Machine Operator 01/28/2004 * Full Code (Latest Code Status [...] 1:24 PM 01/28/2004 1:24 PM Care Teams Process Improvement Engineer Relationship Specialty Start Date End Date Mariza Hill MD [address] [place] [address] PCP - General 10/01/09 documented as of this encounter
--- OUTSIDE RECORDS SUMMARY | 2024-03-02 23:56 | External Medical Summary ---
Author Name Unknown Address Unknown Organization [id number]:[facility] [address] [place] [address] Laboratory Report Ordering Provider Test Date Status TAJ PRITCHARD 02/22/2024 12:14:23 Final Observation Date Value Abnormality Reference (Units ) Status TSH 02/22/2024 12:14:23 3.57 0.27-4.20 (uIU/mL) Final Performing Location [facility] - [address] [place] [address]
--- OUTSIDE RECORDS SUMMARY | 2024-03-02 23:56 | External Medical Summary | Summary of Care ---
Author Name Unknown Organization [facility] Address [address] [place] [address] Phone [phone] Care Team Providers Care Senior Accounting Specialist Name Role Phone Mariza Hill MD Primary Care Provider + Reason for Visit * Reason Comments Re-Check 6 month returnFeels more SOB & weak - especially in the morningNumbness in fingers sometimes Encounter Details Date Type Department Care Team (Late st Contact Info) Description 02/22/2024 11:00 AM EDT Office Visit General Internal Medicine [facility] [place] [address] Mariza Hill MD [address] [place] [address] Tick bite, unspecified site, subsequent encounter*; Type [...] Markers for Patients with Cardiovascular Disease Project #[id number] PI: Keya Frederick MD Please call [phone] with study related questions Chest pain 01/09/2009 07/31/2014 GENOMICS CARDIO RESEARCH OTHER*[id number] 01/09/2009 08/25/2016 Overview: Renamed Per Clinical Trials Billing Project. Study Titile: Genomic Markers for Patients with Cardiovascular Disease Project #[id number] PI: Keya Frederick MD Please call [phone] with study related questions Lyme disease 02/07/2007 [...] NEOPL PROSTATE 01/07/20042018 Overview: Radical prostatectomy @ [place] Pt c/o unavoidable "leakage" Pt agrees to [...] mRNA, LNP-s, No Pre serve, 2-Dose Series ([employer]) 04/22/2021,09/25/2020,09/04/2020 COVID-19, LNP-s, No Preserve , Sincere-sucrose, [...] likely sooner. No rash. Pt lives in [facility]. No chestpain or new sob. Does have [...] ASCVD (arteriosclerotic cardiovascular disease) Coronary atherosclerosis of [place] coronary artery Depression Diabetes mellitus, type 2 [...] Stability Do you currently live in a fpc or have no steady place to sleep at night? (Adult - for ages 18 years and over): No Do you think you are at risk of becoming homeless? (Adult - for ages 18 years and over): No Family History Problem Relation Name Age of Onset Cancer Father Colon Cancer; Liver Cancer Cancer Brother Colon Cancer Cancer Brother Colon Cancer Heart Disorder Father SC Heart Disorder Brother SC Heart Disorder Brother SC Heart Disorder Brother SC All system negative except as per hpi. [...] 8:30 AM EDT Cardiac Studies Cardiac Studies, [facility] [place] [address] 06/05/2024 3:00 PM EST Cardiac Studies Cardiac Studies, [facility] [place] [address] 06/20/2024 2:00 PM EST Office Visit Cardiology, [facility] [place] [address] Hien Hunt CRNP [address] [place] [address] 09/07/2024 1:40 PM EST Office Visit General Internal Medicine [facility] 200 [facility] [place] [address] Mariza Hill MD 200 [facility] [place] [address] Scheduled Orders Name Type Priority Associated Diagnoses [...] Additional history exists CKD PHOS USE SMARTSET 78921 06/15/2024 11/2 02/2023, 06/02/2022, 06/16/2021, Additional history exists HbA1c 07/21/2024 01/19/2024, 05/20, 12/01/2022, Additional history exists TSH 09/01/2024 09/01/2023, 05/20, 08/20/2020, Additional history exists DTaP,Tdap,and Td Vaccines (2 - Td or Tdap) 11/14/2024 11/14/2014 Albumin/Creatinine Ratio 01/18/2025 024, 12/01/2022, 02/05/2022, Additional history exists CKD HGB USE SMARTSET 99360 01/18/202501/18, 01/19/2024, 09/01/2023, Additional history exists Diabetic [...] this encounter Medical Devices Implanted Type Area Care Transition Mgr Device Identifier Shelf Expiration Date Model / Serial / Lot Balloon Cath Pacing [id number] - [id number] Implanted:Qty: 1 on 06/24/2021 at [facility] [employer] : MEDICAL [id number] 01/15/2023 [id number] / / [id number] Valve Aort Evolut Proplus 26mm - [id number] Implanted:Qty: 1 on 06/24/2021 at [facility] [employer] : CARDIAC SURGERY [id number] 02/11/2022 EVPROPLUS- 26US / [id number] / [id number] Lead Tempo Temp Pacing - [id number] Implanted:Qty: 1 on 06/24/2021 at [facility] [employer] [id number] 01/16/2022 [id number] / / [id number]-Rf [id number] - [id number] Implanted:Qty: 1 on 06/26/2021 by Lamin Rodriguez MD at [facility] [employer] [id number] 07/18/2022 [id number] / [id number] / [id number] Lead Pace Tendril 52cm - [id number] Implanted:Qty: 1 on 06/26/2021 by Lamin Rodriguez MD at [facility] [employer] : CARDIAC RHYTHM MGMT [id number] 01/16/2024 [id number]/52 / [id number] / [id number] Lead Pace Selectsecure 3830-69 - [id number] Implanted:Qty: 1 on 06/26/2021 by Lamin Rodriguez MD at [facility] [employer] : CRM [id number] 05/05/2023 [id number] / [id number] / [id number] documented as of this encounter Visit Diagnoses [...] Documents on File Type Date Recorded Patient Hr Administrative Assistant Expl anation Power of Crab Fisher 01/28/2004 * Full Code (Latest Code Status [...] 1:24 PM 01/28/2004 1:24 PM Care Teams Senior Accounting Specialist Relationship Specialty Start Date End Date Mariza Hill MD [address] [place] [address] PCP - General 10/01/09 documented as of this encounter
--- OUTSIDE RECORDS SUMMARY | 2024-03-02 23:57 | External Medical Summary | Summary of Care ---
Author Name Unknown Organization [facility] Address [address] [place] [address] Phone [phone] Care Team Providers Care Investigator Name Role Phone Mariza Hill MD Primary Care Provider + Reason for Visit * Reason Onset Date Comments Health Maintenance 01/18/2024 Encounter Details Date Type Department Care Team (Late st Contact Info) Description 01/18/2024 Telephone General Internal Medicine [facility] [address] [place] [address] Mariza Hill MD [address] [place] [facility] [place] [address] Health Maintenance Allergies Active Allergy Reactions Criticality Noted Date Comments Penicillins 07/05/2001 jointpain documented as of this encounter (statuses as of 01/18/2024) Medications Medication Sig Dispensed Refills Start Date [...] A1c goal of less than 7.0% (HCC) USE TO TEST ONCE DAILY. 100 Each [...] failure managing provider. 1 Each 03/25/2023 Active traMADol HCl 50 MG Oral Tablet (Ultram)Indications :Contusion of right hip, initial encounter,Sacral contusion, initial encounter Take 1 Tablet by mouth every 6 hours as needed for Pain, Severe. 30 Tablet 08/17/2023 Active Levothyroxine Sodium 25 MCG Oral Tablet [...] as of this encounter (statuses as of 01/18/2024) Active Problems Problem Noted Date Diagnosed Date [...] as of this encounter (statuses as of 01/18/2024) Resolved Problems Problem Noted Date Diagnosed Date [...] Markers for Patients with Cardiovascular Disease Project #[id number] PI: Keya Frederick MD Please call [phone] with study related questions Chest pain 01/09/2009 07/31/2014 Rebit CARDIO RESEARCH OTHER*[id number] 01/09/2009 08/25/2016 Overview: Renamed Per Clinical Trials Billing Project. Study Titile: Genomic Markers for Patients with Cardiovascular Disease Project #[id number] PI: Keya Frederick MD Please call [phone] with study related questions Lyme disease 02/07/2007 [...] NEOPL PROSTATE 01/07/20042018 Overview: Radical prostatectomy @ [place] Pt c/o unavoidable "leakage" Pt agrees to [...] as of this encounter (statuses as of 01/18/2024) Immunizations Name Administration Dates Next Due COVID-19 mRNA, LNP-s, No Pre serve, 2-Dose Series ([employer]) 04/22/2021,09/25/2020,09/04/2020 COVID-19, LNP-s, No Preserve , Sincere-sucrose, [...] encounter Miscellaneous Notes * Telephone Encounter - Jaida Aguilera LPN - 01/18/2024 9:59 AM EDT Care Gaps Comprehensive Care Outreach Last Office/Telemedicine Visit: 06/15/2023 (in office), Visit date not found (telemedicine) Next Office Visit: 01/19/2024 Hemoglobin AIC Results: Lab Results Component Value Date/Time HEMOGLOBIN A1C - [facility] 6.4 (H) 06/15/2023 04:31 PM HEMOGLOBIN A1C - [facility] 6.5 (H) 12/01/2022 04:34 PM HEMOGLOBIN A1C - [facility] 6.5 (H) 06/02/2022 04:35 PM HEMOGLOBIN A1C - [facility] 6.0 (H) 02/15/2020 10:11 AM HEMOGLOBIN A1C - [facility] 6.3 (H) 08/11/2019 02:35 PM HEMOGLOBIN A1C - [facility] 6.3 (H) 12/22/2018 02:05 PM BP Readings from Last 1 Encounters: 12/17/23 130/78 Reviewed Health Maintenance below: Health Maintenance Topic Date Due Hepatitis B (3 of 3 - 19+ 3-dose series) 01/21/2023 COVID-19 Vaccine ( season) 2023 Albumin/Creatinine Ratio 12/02/2023 Diabetic Foot Exam 12/02/2023 HbA1c 12/14/2023 Depression Monitoring 02/09/2024 Diabetic Eye Exam 03/09/2024 Influenza Vaccine (FLU shot) (1) 03/19/2024 Pcp tomorrow Care Gap Outreach Action Taken: Outreach not indicated documented in this encounter Plan of Treatment Upcoming Encounters Date Type Department Care Team (Late st Contact Info) Description 01/19/2024 2:00 PM EDT Office Visit General Internal Medicine [facility] 200 [facility] [address] Mariza Hill MD 200 [facility] [place] [address] 02/22/2024 11:00 AM EDT Office Visit General Internal [facility] [place] [address] Mariza Hill MD 200 [facility] [place] [address] 06/05/2024 3:00 PM EST Cardiac Studies [facility] [address] 06/20/2024 2:00 PM EST [facility] [address] [facility] [address] Health Maintenance Due Date Last Done Comments Hepatitis B (3 of 3 - 19+ 3-dose series) 01/21/2023 08/27/2022, 07/24/2022 COVID-19 Vaccine ( season) 2023 04/26/2023, 06/18/2022, 02/11/2022, Additional history exists Albumin/Creatinine Ratio 12/02/2023 023, 02/05/2022, 08/20/2020, Additional history exists Diabetic Foot Exam 12/02/2023 12/01/2022, 0 02/05/2022, 07/03/2021, Additional history exists HbA1c 12/14/2023 06/15/2023, 05/12/2022, 06/02/2022, Additional history exists Depression Monitoring 02/09/2024 02/08/2023 Diabetic Eye Exam 03/09/2024 03/09/2023, , 02/05/2022, Additional history exists Influenza Vaccine (FLU shot) (#1) 2024 05/02/2023, 04/15/2022, 04/23/2021, Additional history exists CKD PHOS USE SMARTSET 37765 06/15/202405/20, 06/02/2022, 06/16/2021, Additional history exists CKD HGB USE SMARTSET 82690 09/01/202409/01, 09/01/2023, 06/15/2023, Additional history exists TSH 09/01/2024 09/01/2023, 05/20, 08/20/2020, Additional history exists DTaP,Tdap,and Td Vaccines (2 - Td or Tdap) 11/14/2024 11/14/2014 Pneumococcal Vaccine: 65+ Years Completed 04/30/2015, 05/09/2007, 07/05/2001 Colonoscopy Discontinued 04/10/2019, 07/20, 08/12/2016, Additional history exists Zoster Vaccines Completed 07/29/2022, 02/2020, 08/20/2011 GARDASIL-HPV IMMUNIZATION SERIES Aged Out No longer eligible based on patient's age to complete this topic MENINGOCOCCAL (MENACTRA/MENVEO) Aged Out No longer eligible based on patient's age to complete this topic documented as of this encounter Medical Devices Implanted Type Area Physician Office Specialist Device Identifier Shelf Expiration Date Model / Serial / Lot Balloon Cath Pacing [id number] - [id number] Implanted:Qty: 1 on 06/24/2021 at [facility] [employer] : MEDICAL [id number] 01/15/2023 [id number] / / [id number] Valve Aort Evolut Proplus 26mm - [id number] Implanted:Qty: 1 on 06/24/2021 at [facility] [employer] : CARDIAC SURGERY [id number] 02/11/2022 EVPROPLUS- 26US / [id number] / [id number] Lead Tempo Temp Pacing - [id number] Implanted:Qty: 1 on 06/24/2021 at [facility] [employer] [id number] 01/16/2022 [id number] / / [id number]-Rf [id number] - [id number] Implanted:Qty: 1 on 06/26/2021 by Lamin Rodriguez MD at [facility] [employer] [id number] 07/18/2022 [id number] / [id number] / [id number] Lead Pace Tendril 52cm - [id number] Implanted:Qty: 1 on 06/26/2021 by Lamin Rodriguez MD at [facility] [employer] : CARDIAC RHYTHM MGMT [id number] 01/16/2024 2088TC/52 / [id number] / [id number] Lead Pace Select[employer] 3830-69 - [id number] Implanted:Qty: 1 on 06/26/2021 by Lamin Rodriguez MD at [facility] [employer] : CRM [id number] 05/05/2023 [id number] / [id number] / [id number] documented as of this encounter Advance Directives Documents on File Type Date Recorded Patient Process Safety 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
--- OUTSIDE RECORDS SUMMARY | 2024-03-02 23:57 | External Medical Summary | Summary of Care ---
Author Name Unknown Organization [facility] Address [address] [place] [address] Phone [phone] Care Team Providers Care Fitness Coordinator Name Role Phone Mariza Hill MD Primary Care Provider + Reason for Referral * Evaluate & Treat - Unlimited Visits (Within 10 days (routine)) - Authorized Specialty Diagnoses / Procedures Referred By Contkamran t Referred To Contact Physical Therapy / Physical Medicine And Rehab Diagnoses Bilateral leg weakness Mariza Hill MD [address] [facility] [address] [place] [address] Referral ID Status Reason Start Date Expiration Date Visits Requested Visits Authorized [id number] Authorized Specialty Services Required 01/19/2024 999 999 Question Answer Referral Priority Within 10 days (routine) Where should this appointment be scheduled? [facility] Comments Please eval for BL lower leg weakness. High risk for falls. Thanks. Reason for Visit * Reason Onset Date Comments Follow Up Patient here to address difficulty walking, wants evaluated and to discuss next steps. Has been to PT, daughter reports she is not sure what they address at PT. 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 100 Each [...] by mouth every other day. 10/21/2023 Active traMADol HCl 50 MG Oral Tablet (Ultram)Indicatio ns:Contusion of right hip, initial encounter,Sacral contusion, initial encounter Take 1 Tablet by mouth every 6 hours as needed for Pain, Severe. 30 Tablet 08/17/2023 Discontinue d(Medicatio n List Clean Up) documented as of this encounter (statuses as [...] Markers for Patients with Cardiovascular Disease Project #[id number] PI: Keya Frederick MD Please call [phone] with study related questions Chest pain 01/09/2009 07/31/2014 GENOMICS CARDIO RESEARCH OTHER*[id number] 01/09/2009 08/25/2016 Overview: Renamed Per Clinical Trials Billing Project. Study Titile: Genomic Markers for Patients with Cardiovascular Disease Project #[id number] PI: Keya Frederick MD Please call [phone] with study related questions Lyme disease 02/07/2007 [...] NEOPL PROSTATE 01/07/20042018 Overview: Radical prostatectomy @ [place] Pt c/o unavoidable "leakage" Pt agrees to [...] mRNA, LNP-s, No Pre serve, 2-Dose Series (Strut) 04/22/2021,09/25/2020,09/04/2020 COVID-19, LNP-s, No Preserve , Sincere-sucrose, [...] Sign Reading Time Taken Comments Blood Pressure 130/66 01/19/2024 2:12 PM EDT Pulse 60 01/19/2024 2:12 PM EDT Temperature 36.4 C (97.5 F) 01/19/2024 2:12 PM ED T Respiratory Rate - - Oxygen Saturation 96% 01/19/2024 2:12 PM EDT Inhaled Oxygen Concentration - - Weight 94.3 kg (208 lb) 01/19/2024 2:12 PM EDT Height - - Body Mass Index 30.28 06/15/2023 3:41 PM EST documented in this [...] Progress Notes * Mariza Hill MD - 01/19/2024 2:40 PM EDT HPI: Tan Prescott is a 88 year old male who presents with: Chief Complaint Patient presents with Follow Up Patient here to address difficulty walking, wants evaluated and to discuss next steps. Has been to PT, daughter reports she is not sure what they address at PT. Hospital Follow-Up Patient is here for the recheck. Chart reviewed with the patient including current meds, last labs and HM. No acute event since we saw patient last time including no recent fall or injuries. Denies any chestpain/sob/palpitation/swealling in the legs. Denies any cough/sob/wheezing/chestpain. Denies nausea,vomiting, diarrhoea, constipation, abdominal pain or blood in stool. Denies heart burn. Has good appetite. No urinary symptoms. Denies any anxiety or depression. Patient Active Problem List Diagnosis Coronary atherosclerosis [...] Dispense Refill MULTIVITAMINS OR TABS daily 0 BENADRYL 25 MG PO CAPS 2 at bedtime for sleep prn Clindamycin HCl 300 MG Capsule TAKE 2 CAPSULES BY MOUTH 1 HOUR PRIOR TO DENTAL APPOINTMENT Aspirin 81 MG Oral Tablet Chewable Take 1 Tablet by mouth daily. 30 Tablet 3 B-12-SL 1000 MCG Sublingual Tablet Sublingual (Cyanocobalamin) Place under the tongue 1,000 mcg daily . 30 Tablet 11 OneTouch Delica Lancets 33G USE TO TEST ONCE DAILY. 100 Each 3 OneTouch Ultra In Vitro Strip (Glucose Blood) Use to test once daily. Dx E11.9 100 Strip 5 Nitroglycerin 0.4 MG Sublingual Tablet Sublingual (Nitrostat) DISSOLVE 1 TABLET UNDER THE TONGUE EVERY 5 MINUTES NEEDED FOR CHEST PAIN. 25 Tablet 3 Albuterol Sulfate HFA 108 (90 Base) MCG/ACT Inhalation Aerosol Solution Inhale 2 Puffs by mouth every 4 hours as needed for Wheezing. 6.7 g 5 DIURETIC TITRATION PLAN If no improvement on day 3, contact heart failure managing provider. 1 Each0 Levothyroxine Sodium 25 MCG Oral Tablet (Levoxyl) Take 1 Tablet by mouth in the morning. (at least 30 min prior to breakfast or other meds). 90 Tablet 1 Atorvastatin Calcium 80 MG Oral Tablet (Lipitor) Take 1 Tablet by mouth in the morning. 90 Tablet 3 buPROPion HCl ER (SR) 150 MG Oral Tablet Extended Release 12 Hour (Wellbutrin SR) Take 1 Tablet by mouth in the morning and 1 Tablet before bedtime. 180 Tablet 3 Furosemide 40 MG Oral Tablet (Lasix) Take 1 Tablet by mouth in the morning. 90 Tablet 3 metFORMIN HCl 500 MG Oral Tablet (Glucophage) TAKE 1 TABLET DAILY WITH BREAKFAST 90 Tablet 3 Metoprolol Succinate ER 25 MG Oral Tablet Extended Release 24 Hour (toPROL XL) Take 1 Tablet by mouth in the morning. 90 Tablet 3 Potassium Chloride ER 20 MEQ Oral Tablet Extended Release TAKE 1 TABLET BY MOUTH EVERY DAY IN THE MORNING 90 Tablet 3 Vitron-C 65-125 MG Oral Tablet (Iron-Vitamin C 65-125 mg per tab) Take 1 Tablet by mouth every other day. No current facility-administered medications for this visit. The patient's medication list was reviewed and updated as needed. Review of patient's allergies indicates: Allergen Reactions Penicillins jointpain Past Medical History: Diagnosis Date ASCVD (arteriosclerotic cardiovascular disease) Coronary atherosclerosis of [place] coronary artery Depression Diabetes mellitus, type 2 [...] date: 07/19/1958 Quit date: 07/19/1963 Years since quittin.5 Passive exposure: Past Smokeless tobacco: Never Vaping Use Vaping status: Never Used Substance and Sexual Activity Alcohol use: No Drug use: No Sexual activity: Yes Partners: Female Comment: Efren Social History Narrative Lives alone. Social Determinants [...] ages 18 years and over):Never True Social Connections: Socially Integrated (02/08/2023) Social Connections How often do you feel lonely or isolated from those around you? (Adult - for ages 18 years and over): Rarely Housing Stability: Low Risk (02/08/2023) Housing Stability Do you currently live in a assisted or have no steady place to sleep at night? (Adult - for ages 18 years and over): No Do you think you are at risk of becoming homeless? (Adult - for ages 18 years and over): No Family History Problem Relation Name Age of Onset Cancer Father Colon Cancer; Liver Cancer Cancer Brother Colon Cancer Cancer Brother Colon Cancer Heart Disorder Father GA Heart Disorder Brother GA Heart Disorder Brother GA Heart Disorder Brother [place] All system negative except as per hpi. OBJECTIVE: BP 130/66 | Pulse 60 | Temp 36.4 C (97.5 F) (Tympanic) | Wt 94.3 kg (208 lb) | SpO2 96% | BMI 30.28 kg/m | BSA 2.15 m PHYSICAL EXAM: HEENT: PERRLA, EOMI, anicteric sclera, b/l tympanic membrane is pearly white, no erythema, no pharyngeal erythema, no lymphadenopathy, neck supple CVS: RRR, no murmurs, rubs or gallops, s1 s 2normal. RESP: clear to auscultation, no wheezing or crackles ABD: soft, NT/ND EXT: no edema, cyanosis, peripheral pulses palpable bilaterally No large joint swelling, no redness, range of motion normal. Skin normal. Gait normal. 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 Has been to PT, daughter reports she is not sure what they address at PT. documented in this encounter Plan of Treatment Upcoming Encounters Date Type Department Care Team (Late st Contact Info) Description 02/22/2024 11:00 AM EDT Office Visit General Internal Medicine [place] [facility] [place] [address] [place] [address] Mariza Hill MD [address] [facility] [place] [address] 06/05/2024 3:00 PM EST Cardiac Studies Cardiac Studies, [facility] [address] [facility] [place] [address] 06/20/2024 2:00 PM EST Office Visit Cardiology, [facility] [place] [address] Hien Hunt CRNP [address] [facility] [place] [address] Pending Results Name Type Priority Associated Diagnoses Date /Time HEMOGLOBIN A1C Lab Routine 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) 01/19/2024 2:57 PM EDT BASIC METABOLIC PANEL Lab Routine Bilateral leg weakness Malaise and fatigue 01/19/2024 2:57 PM EDT CBC WITH WBC DIFFERENTIAL Lab Routine Bilateral leg weakness Malaise and fatigue 01/19/2024 2:57 PM EDT Scheduled Orders Name Type Priority Associated Diagnoses Orde r Schedule HEMOGLOBIN A1C Lab Routine 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) Expected: 01/19/2024 (Approximate), Expires: 01/18/2025 ALBUMIN / CREATININE RATIO, URINE Lab Routine 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) Expected: 01/19/2024 (Approximate), Expires: 01/18/2025 BASIC METABOLIC PANEL Lab Routine Bilateral leg weakness Malaise and fatigue Expected: 01/19/2024 (Approximate), Expires: 01/18/2025 CBC WITH WBC DIFFERENTIAL Lab Routine Bilateral leg weakness Malaise and fatigue Expected: 01/19/2024 (Approximate), Expires: 01/18/2025 Scheduled Referrals Name Type Priority Associated Diagnoses Orde r Schedule PHYSICAL THERAPY REFERRAL OP Referral Within 10 days (routine) Bilateral leg weakness Ordered: 01/19/2024 Health Maintenance Due Date Last Done Comments Hepatitis B Vaccine (3 of 3 - 19+ 3-dose series) 01/21/2023 08/27/2022, 07/24/2022 COVID-19 Vaccine (2022-24 season) 2023 04/26/2023, 06/18/2022, 02/11/2022, Additional history [...] Additional history exists CKD PHOS USE SMARTSET 64305 06/15/202405/20, 06/02/2022, 06/16/2021, Additional history exists CKD HGB USE SMARTSET 64501 09/01/202409/01, 09/01/2023, 06/15/2023, Additional history exists TSH [...] this encounter Medical Devices Implanted Type Area Snuff Grinder And Screener Device Identifier Shelf Expiration Date Model / Serial / Lot Balloon Cath Pacing [id number] - [id number] Implanted:Qty: 1 on 06/24/2021 at [facility] : MEDICAL [id number] 01/15/2023 [id number] / / [id number] Valve Aort Evolut Proplus 26mm - [id number] Implanted:Qty: 1 on 06/24/[address] [facility] [employer] : CARDIAC SURGERY [id number] 02/11/2022 EVPROPLUS- 26US / [id number] / [id number] Lead Tempo Temp Pacing - [id number] Implanted:Qty: 1 on 06/24/[address] [facility] [employer] [id number] 01/16/2022 [id number] / / [id number]-Rf [id number] - [id number] Implanted:Qty: 1 on 06/26/2021 by Lamin Rodriguez MD at [facility] [employer] [id number] 07/18/2022 [id number] / [id number] / [id number] Lead Pace Tendril 52cm - [id number] Implanted:Qty: 1 on 06/26/2021 by Lamin Rodriguez MD at [facility] [employer] : CARDIAC RHYTHM MGMT [id number] 01/16/2024 2088TC/52 / [id number] / [id number] Lead Pace Selectsecure 3830-69 - [id number] Implanted:Qty: 1 on 06/26/2021 by Lamin Rodriguez MD at 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
--- OUTSIDE RECORDS SUMMARY | 2024-03-02 23:57 | External Medical Summary | Summary of Care ---
Author Name Unknown Organization [facility] Address [address] [place] [address] Phone [phone] Care Team Providers Care Community Health Nurse Name Role Phone Mariza Hill MD Primary Care Provider + Encounter Details Date Type Department Care Team (Late st Contact Info) Description 12/21/2023 Orders Only PATIENT PORTAL DO NOT DELETE THIS DEPT USED BY [place] [id number] Allergies Active Allergy Reactions Criticality Noted Date Comments Penicillins 07/05/2001 jointpain documented as of this encounter (statuses as of 12/21/2023) Medications Medication Sig Dispensed Refills Start Date [...] as of this encounter (statuses as of 12/21/2023) Active Problems Problem Noted Date Diagnosed Date [...] as of this encounter (statuses as of 12/21/2023) Resolved Problems Problem Noted Date Diagnosed Date [...] Markers for Patients with Cardiovascular Disease Project #[id number] PI: Keya Frederick MD Please call [phone] with study related questions Chest pain 01/09/2009 07/31/2014 GENOMICS CARDIO RESEARCH OTHER*[id number] 01/09/2009 08/25/2016 Overview: Renamed Per Clinical Trials Billing Project. Study Titile: Genomic Markers for Patients with Cardiovascular Disease Project #[id number] PI: Keya Frederick MD Please call [phone] with study related questions Lyme disease 02/07/2007 [...] NEOPL PROSTATE 01/07/20042018 Overview: Radical prostatectomy @ [place] Pt c/o unavoidable "leakage" Pt agrees to [...] as of this encounter (statuses as of 12/21/2023) Immunizations Name Administration Dates Next Due COVID-19 mRNA, LNP-s, No Pre serve, 2-Dose Series (KuGou) 04/22/2021,09/25/2020,09/04/2020 COVID-19, LNP-s, No Preserve , Sincere-sucrose, Ages 12+ (Pfizer) 02/11/2022 Covid-19, Mrna, Lnp-s, Pf, B ivalent, 30 Mcg, IM, 12 yrs and above (KuGou) 06/18/2022 Hepatitis B, 20+ yrs 08/27/2022,07/24/2022 Pneumococcal [...] money to get more. Never true 02/08/2023 Sex and Gender Information Value Date [...] Care Team (Late st Contact Info) Description 01/13/2024 10:40 AM EDT Office Visit General Internal Medicine [place] [facility] [place] [address] [place] [address] Mariza Hill MD [address] [place] [address] 06/05/2024 3:00 PM EST [facility] [address] [facility] [place] [address] 06/20/2024 2:00 PM EST Office Visit Cardiology, [facility] [address] [facility] [place] [address] Hien Hunt CRNP [address] [place] [address] Health Maintenance Due Date Last Done Comments Hepatitis B (3 of 3 - 19+ 3-dose series) 01/21/2023 08/27/2022, 07/24/2022 COVID-19 Vaccine (2022- season) 2023 06/18/2022, 02/11/2022, 04/22/2021, Additional history exists Albumin/Creatinine Ratio 12/02/2023 023, 02/05/2022, 08/20/2020, Additional history exists Diabetic Foot Exam 12/02/2023 12/01/2022, 0 02/05/2022, 07/03/2021, Additional history exists HbA1c 12/14/2023 06/15/2023, 11/16, 06/02/2022, Additional history exists Diabetic Eye Exam 03/09/2024 03/09/2023, , 02/05/2022, Additional history exists CKD PHOS USE SMARTSET 30135 06/15/202405/20, 06/02/2022, 06/16/2021, Additional history exists CKD HGB USE SMARTSET 04806 09/01/202409/01, 09/01/2023, 06/15/2023, Additional history exists TSH 09/01/2024 09/01/2023, 05/20, 08/20/2020, Additional history exists DTaP,Tdap,and Td Vaccines (2 - Td or Tdap) 11/14/2024 11/14/2014 Pneumococcal Vaccine: 65+ Years Completed 04/30/2015, 05/09/2007, 07/05/2001 Colonoscopy Discontinued 04/10/2019, 07/20, 08/12/2016, Additional history exists Zoster Vaccines Completed 07/29/2022, 12/02/2020, 08/20/2011 Influenza Vaccine (FLU shot) Completed 05/02/2023, 04/15/2022, 04/23/2021, Additional history exists GARDASIL-HPV IMMUNIZATION SERIES Aged Out No longer eligible based on patient's age to complete this topic MENINGOCOCCAL (MENACTRA/MENVEO) Aged Out No longer eligible based on patient's age to complete this topic documented as of this encounter Medical Devices Implanted Type Area Director Gift Device Identifier Shelf Expiration Date Model / Serial / Lot Balloon Cath Pacing [id number] - [id number] Implanted:Qty: 1 on 06/24/2021 at [facility] : MEDICAL [id number] 01/15/2023 [id number] / / [id number] Valve Aort Evolut Proplus 26mm - [id number] Implanted:Qty: 1 on 06/24/2021 at [facility] [employer] : CARDIAC SURGERY [id number] 02/11/2022 EVPROPLUS- 26US / [id number] / [id number] Lead Tempo Temp Pacing - [id number] Implanted:Qty: 1 on 06/24/2021 at [facility] [employer] [id number] 01/16/2022 [id number] / / [id number]-Rf [id number] - [id number] Implanted:Qty: 1 on 06/26/2021 by Lamin Rodriguez MD at [facility] [employer] [id number] 07/18/2022 [id number] / [id number] / [id number] Lead Pace Tendril 52cm - [id number] Implanted:Qty: 1 on 06/26/2021 by Lamin Rodriguez MD at [facility] [employer] : CARDIAC RHYTHM MGMT [id number] 01/16/2024 2088TC/52 / [id number] / [id number] Lead Pace Selectsecure 3830-69 - [id number] Implanted:Qty: 1 on 06/26/2021 by Lamin Rodriguez MD at [facility] [employer] : CRM [id number] 05/05/2023 [id number] 9 / [id number] / [id number] documented as of this encounter Advance Directives Documents on File Type Date Recorded 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
--- OUTSIDE RECORDS SUMMARY | 2024-03-02 23:57 | External Medical Summary | Summary of Care ---
Author Name Unknown Organization [facility] Address [address] [place] [address] Phone [phone] Care Team Providers Care Hatch Boss Name Role Phone Mariza Hill MD Primary Care Provider + Reason for Visit * Reason Onset Date Comments Advice 12/24/2023 Encounter Details Date Type Department Care Team (Late st Contact Info) Description 12/24/2023 Telephone Cardiology, [facility] [address] [facility] [address] Hien Hunt CRNP [address] [place] [address] Advice Allergies Active Allergy Reactions Criticality Noted Date Comments Penicillins 07/05/2001 jointpain documented as of this encounter (statuses as of 12/24/2023) Medications Medication Sig Dispensed Refills Start Date [...] as of this encounter (statuses as of 12/24/2023) Active Problems Problem Noted Date Diagnosed Date [...] as of this encounter (statuses as of 12/24/2023) Resolved Problems Problem Noted Date Diagnosed Date [...] Markers for Patients with Cardiovascular Disease Project #[id number] PI: Keya Frederick MD Please call [phone] with study related questions Chest pain 01/09/2009 07/31/2014 GENOMICS CARDIO RESEARCH OTHER*[id number] 01/09/2009 08/25/2016 Overview: Renamed Per Clinical Trials Billing Project. Study Titile: Genomic Markers for Patients with Cardiovascular Disease Project #[id number] PI: Keya Frederick MD Please call [phone] with study related questions Lyme disease 02/07/2007 [...] NEOPL PROSTATE 01/07/20042018 Overview: Radical prostatectomy @ [facility] Pt c/o unavoidable "leakage" Pt agrees to [...] as of this encounter (statuses as of 12/24/2023) Immunizations Name Administration Dates Next Due COVID-19 mRNA, LNP-s, No Pre serve, 2-Dose Series ([employer]) 04/22/2021,09/25/2020,09/04/2020 COVID-19, LNP-s, No Preserve , Sincere-sucrose, Ages 12+ ([employer]o) 02/11/2022 Covid-19, Mrna, Lnp-s, Pf, B ivalent, [...] Telephone Encounter - Caridad Salas LPN - 12/24/2023 2:58 PM EDT Spoke with daughter, all questions answered * Telephone Encounter - Nessa Rice OSA - 12/24/2023 2:31 PM EDT Person calling: Melinda Mancilla Relationship to patient: Adult child Number to return call: [phone] Reason for call: advice Pharmacy: N/A Provider Name: Hien Hunt CRNP Detailed message to office: Calling with questions regarding medical alert devices possibly interfering with patient's pacemaker. Requesting callback to discuss. documented in this encounter Plan of Treatment Upcoming Encounters Date Type Department Care Team (Late st Contact Info) Description 01/13/2024 10:40 AM EDT Office Visit General Internal Medicine [facility] [address] [place] [address] Mariza Hill MD [address] [facility] [place] [address] 06/05/2024 3:00 PM EST Cardiac Studies Cardiac Studies, [facility] [address] [place] [address] 06/20/2024 2:00 PM EST Office Visit Cardiology, [facility] [address] [place] [address] Hien Hunt CRNP [address] [facility] [place] [address] Health Maintenance Due Date Last Done Comments Hepatitis B (3 of 3 - 19+ 3-dose series) 01/21/2023 08/27/2022, 07/24/2022 COVID-19 Vaccine ( season) 2023 06/18/2022, 02/11/2022, 04/22/2021, Additional history exists Albumin/Creatinine Ratio 12/02/2023 023, 02/05/2022, 08/20/2020, Additional history exists Diabetic Foot Exam 12/02/2023 12/01/2022, 0 02/05/2022, 07/03/2021, Additional history exists HbA1c 12/14/2023 06/15/2023, 11/16, 06/02/2022, Additional history exists Diabetic Eye Exam 03/09/2024 03/09/2023, , 02/05/2022, Additional history exists CKD PHOS USE SMARTSET 09421 06/15/202405/20, 06/02/2022, 06/16/2021, Additional history exists CKD HGB USE SMARTSET 14903 09/01/202409/01, 09/01/2023, 06/15/2023, Additional history exists TSH 09/01/2024 09/01/2023, 05/20, 08/20/2020, Additional history exists DTaP,Tdap,and Td Vaccines (2 - Td or Tdap) 11/14/2024 11/14/2014 Pneumococcal Vaccine: 65+ Years Completed 04/30/2015, 05/09/2007, 07/05/2001 Colonoscopy Discontinued 04/10/2019, 07/20, 08/12/2016, Additional history exists Zoster Vaccines Completed 07/29/2022, 02/2020, 08/20/2011 Influenza Vaccine (FLU shot) Completed 05/02/2023, 04/15/2022, 04/23/2021, Additional history exists GARDASIL-HPV IMMUNIZATION SERIES Aged Out No longer eligible based on patient's age to complete this topic MENINGOCOCCAL (MENACTRA/MENVEO) Aged Out No longer eligible based on patient's age to complete this topic documented as of this encounter Medical Devices Implanted Type Area Equestrian Trainer Device Identifier Shelf Expiration Date Model / Serial / Lot Balloon Cath Pacing [id number] - [id number] Implanted:Qty: 1 on 06/24/2021 at [facility] [place] : MEDICAL [id number] 01/15/2023 [id number] / / [id number] Valve Aort Evolut Proplus 26mm - [id number] Implanted:Qty: 1 on 06/24/2021 at [facility] [employer] : CARDIAC SURGERY [id number] 02/11/2022 EVPROPLUS- 26US / [id number] / [id number] Lead Tempo Temp Pacing - [id number] Implanted:Qty: 1 on 06/24/2021 at [facility] [employer] [id number] 01/16/2022 [id number] / / [id number]-Rf [id number] - [id number] Implanted:Qty: 1 on 06/26/2021 by Lamin Rodrgiuez MD at [facility] [employer] [id number] 07/18/2022 [id number] / [id number] / [id number] Lead Pace Tendril 52cm - [id number] Implanted:Qty: 1 on 06/26/2021 by Lamin Rodriguez MD at [facility] [employer] : CARDIAC RHYTHM MGMT [id number] 01/16/2024 2088TC/52 / [id number] / [id number] Lead Pace Selectsecure 3830-69 - [id number] Implanted:Qty: 1 on 06/26/2021 by Lamin Rodriguez MD at [facility] [employer] : CRM [id number] 05/05/2023 [id number] / [id number] / [id number] documented as of this encounter Advance Directives Documents on File Type Date Recorded Patient Advisory Application Developer Expl anation Power of Helmet Coverer 01/28/2004 * Full Code (Latest Code Status [...] 1:24 PM 01/28/2004 1:24 PM Care Teams Hatch Boss Relationship Specialty Start Date End Date Mariza Hill MD [address] [facility] [place] [address] PCP - General 10/01/09 documented as of this encounter
--- OUTSIDE RECORDS SUMMARY | 2024-03-02 23:57 | External Medical Summary | Summary of Care ---
Author Name Unknown Organization [facility] Address [address] [place] [address] Phone [phone] Care Team Providers Care Technician Biological Health Name Role Phone Mariza Hill MD Primary Care Provider + Reason for Referral * Evaluate & Treat - Unlimited Visits (Within 30 days (routine)) - Authorized Specialty Diagnoses / Procedures Referred By Boby cowan Referred To Contact Physical Therapy / Physical Medicine And Rehab Diagnoses Hip pain, right Mariza Hill MD [address] [place] [address] Referral ID Status Reason Start Date Expiration Date Visits Requested Visits Authorized [id number] Authorized Specialty Services Required 09/27/2023 999 999 Question Answer Referral Priority Within 30 days (routine) Where should this appointment be scheduled? [facility] Reason for Visit * Reason Onset Date Comments Referral 09/24/2023 Encounter Details Date Type Department Care Team (Late st Contact Info) Description 09/24/2023 Telephone General Internal Medicine [facility] [address] [place] [address] [address] Mariza Hill MD [address] [place] [address] Referral Allergies Active Allergy Reactions Criticality Noted Date [...] THE MORNING 90 Tablet 3 09/13/2023 Active Iron-Vitamin C (VITRON-C) 65-125 MG TabletIndications :Other iron deficiency anemia Take 1 Tab by mouth daily. 30 Tab 5 02/15/2020 4 Discontinue d(Refill) documented as of this encounter (statuses as [...] Markers for Patients with Cardiovascular Disease Project #[id number] PI: Keya Frederick MD Please call [phone] with study related questions Chest pain 01/09/2009 07/31/2014 GENOMICS CARDIO RESEARCH OTHER*[id number] 01/09/2009 08/25/2016 Overview: Renamed Per Clinical Trials Billing Project. Study Titile: Genomic Markers for Patients with Cardiovascular Disease Project #[id number] PI: Keya Frederick MD Please call [phone] with study related questions Lyme disease 02/07/2007 [...] NEOPL PROSTATE 01/07/20042018 Overview: Radical prostatectomy @ [place] Pt c/o unavoidable "leakage" Pt agrees to [...] mRNA, LNP-s, No Pre serve, 2-Dose Series ([employer]) 04/22/2021,09/25/2020,09/04/2020 COVID-19, LNP-s, No Preserve , Sincere-sucrose, Ages 12+ (Pfizer) 02/11/2022 Covid-19, Mrna, Lnp-s, Pf, B ivalent, 30 Mcg, IM, 12 yrs and above ([employer]) 06/18/2022 Hepatitis B, 20+ yrs 08/27/2022,07/24/2022 Pneumococcal [...] encounter Miscellaneous Notes * Telephone Encounter - May Weber OSA - 09/28/2023 3:47 PM EDT Caller requesting the following information to be faxed: Name/Company of caller: [employer] Information requested to be faxed: Physical Therapy Referral Fax number: [phone] Attention to Name/Company: [facility] Any additional information?: Faxed via [employer], 09/28/23 348p * Telephone Encounter - Mariza Hill MD - 09/27/2023 10:53 AM EDT Signed. * Telephone Encounter - Jeannette Uribe OSA - 09/24/2023 10:20 AM EST Has the patient been seen for this problem? (Y/N)?: Y If No, an appt needs to be scheduled before a referral will be placed (exception: proceed with referral request if referral request is for a yearly routine appointment with speciality) Patient Name: Tan Prescott Patient Primary care provider: Mariza Hill MD Does this need to be an insurance referral (Y/N)?: Y If Yes, does the insurance referral need to be placed into the Personal [employer] system? Name of preferred specialist: Re[facility] Type of specialist: Physical Therapy [place] [place] [facility] [facility] Phone #: [phone] Specialist's Fax #: [phone] Reason for visit: Trouble with right hip documented in this encounter Plan of Treatment Upcoming Encounters Date Type Department Care Team (Late st Contact Info) Description 01/13/2024 10:40 AM EDT Office Visit General Internal Medicine [place] [address] [place] [address] Mariza Hill MD [address] [facility] [place] [address] 06/05/2024 3:00 PM EST Cardiac Studies Cardiac Studies, [facility] [address] [facility] [place] [address] 06/20/2024 2:00 PM EST Office [facility] [place] [address] Hien Hunt CRNP [address] [place] [address] Scheduled Referrals Name Type Priority Associated Diagnoses Orde r Schedule PHYSICAL THERAPY REFERRAL OP Referral Within 30 days (routine) Hip pain, right Ordered: 09/27/2023 Health Maintenance Due Date Last Done Comments [...] Additional history exists CKD PHOS USE SMARTSET 42210 06/15/202405/20, 06/02/2022, 06/16/2021, Additional history exists CKD HGB USE SMARTSET 75573 09/01/202409/01, 09/01/2023, 06/15/2023, Additional history exists TSH [...] this encounter Medical Devices Implanted Type Area Mechanical Systems Engineer Device Identifier Shelf Expiration Date Model / Serial / Lot Balloon Cath Pacing [id number] - [id number] Implanted:Qty: 1 on 06/24/2021 at [facility] BARD : MEDICAL [id number] 01/15/2023 [id number] / / [id number] Valve Aort Evolut Proplus 26mm - [id number] Implanted:Qty: 1 on 06/24/2021 at [facility] [place] [employer] : CARDIAC SURGERY [id number] 02/11/2022 EVPROPLUS- 26US / [id number] / [id number] Lead Tempo Temp Pacing - [id number] Implanted:Qty: 1 on 06/24/2021 at [facility] [employer] [id number] 01/16/2022 [id number] / / [id number]-Rf [id number] - [id number] Implanted:Qty: 1 on 06/26/2021 by Lamin Rodriguez MD at [facility] [facility] [employer] [id number] 07/18/2022 [id number] / [id number] / [id number] Lead Pace Tendril 52cm - [id number] Implanted:Qty: 1 on 06/26/2021 by Lamin Rodriguez MD at [facility] [employer] : CARDIAC RHYTHM MGMT [id number] 01/16/2024 2088TC/52 / [id number] / [id number] Lead Pace Selectsecure 3830-69 - [id number] Implanted:Qty: 1 on 06/26/2021 by Lamin Rodriguez MD at [facility] [place] [employer] : CRM [id number] 05/05/2023 [id number] / [id number] / [id number] documented as of this encounter Visit Diagnoses Diagnosis Hip pain, right- Primary Pain in joint, pelvic region and thigh documented in this encounter Advance Directives Documents on File Type Date Recorded 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
--- OUTSIDE RECORDS SUMMARY | 2024-03-02 23:57 | External Medical Summary | Summary of Care ---
Author Name Unknown Organization [facility] Address [address] [place] [address] Phone [phone] Care Team Providers Care Professor Of Music Name Role Phone Mariza Hill MD Primary Care Provider + Reason for Referral * Precert (Within 10 days (routine)) - Authorized Specialty Diagnoses / Procedures Referred By Contac t Referred To Contact Cardiac Studies Diagnoses Chronic diastolic CHF (congestive heart failure), NYHA class 3 (HCC) Stenosis of prosthetic aortic valve, 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) HFrEF (heart failure with reduced ejection fraction) (HCC) CHB (complete heart block) (HCC) Cardiac pacemaker in situ Coronary artery disease involving nikolski coronary artery of nikolski heart without angina pectoris Dyslipidemia, goal LDL below 70 Procedures ECHO, COMPLETE (2D), TRANS-THORACIC Hien Hunt CRNP [address] [place] [address] Referral ID Status Reason Start Date Expiration Date V isits Requested Visits Authorized [id number] Authorized Precert 06/17/2024 999 999 Reason for Visit * Reason Comments Nausea/Vomit Encounter Details Date Type Department Care Team (Late st Contact Info) Description 12/17/2023 9:30 AM EDT Office Visit Cardiology, [facility] [address] [place] [address] Hien Hunt CRNP [address] [place] [address] Chronic diastolic CHF (congestive heart failure), NYHA class 3 ([facility])*; Stenosis of prosthetic aortic valve, subsequent encounter; S/P TAVR (transcatheter aortic valve replacement); HFrEF (heart failure with reduced ejection fraction) ([facility]); CHB (complete heart block) ([facility]); Cardiac pacemaker in situ; Coronary artery disease involving nikolski coronary artery of nikolski heart without angina pectoris; Dyslipidemia, goal LDL below 70 Allergies Active Allergy Reactions Criticality Noted Date Comments Penicillins 07/05/2001 jointpain documented as of this encounter (statuses as of 12/17/2023) Medications Medication Sig Dispensed Refills Start Date [...] goal of less than 7.0% ([facility]) USE TO TEST ONCE DAILY. 100 Each 3 01/14/2023 Active LilLuxeTouch Ultra In Vitro Strip (Glucose Blood) Use [...] DAILY WITH BREAKFAST 90 Tablet 09/13/2023 Active Metoprolol Succinate ER 25 MG [...] EVERY DAY IN THE MORNING 90 Tablet 09/13/2023 Active Vitron-C 65-125 MG Oral Tablet (Iron-Vitamin C 65-125 mg per tab)Indications:Oth er iron deficiency anemia Take 1 Tablet by mouth every other day. 10/21/2023 Active documented as of this encounter (statuses as of 12/17/2023) Active Problems Problem Noted Date Diagnosed Date [...] as of this encounter (statuses as of 12/17/2023) Resolved Problems Problem Noted Date Diagnosed Date [...] Markers for Patients with Cardiovascular Disease Project #[id number] PI: Keya Frederick MD Please call [phone] with study related questions Chest pain 01/09/2009 07/31/2014 [employer] CARDIO RESEARCH OTHER*[id number] 01/09/2009 08/25/2016 Overview: Renamed Per Clinical Trials Billing Project. Study Titile: Genomic Markers for Patients with Cardiovascular Disease Project #[id number] PI: Keya Frederick MD Please call [phone] with study related questions Lyme disease 02/07/2007 [...] NEOPL PROSTATE 01/07/20042018 Overview: Radical prostatectomy @ [place] Pt c/o unavoidable "leakage" Pt agrees to [...] as of this encounter (statuses as of 12/17/2023) Immunizations Name Administration Dates Next Due COVID-19 mRNA, LNP-s, No Pre serve, 2-Dose Series (Really Simple) 04/22/2021,09/25/2020,09/04/2020 COVID-19, LNP-s, No Preserve , Sincere-sucrose, [...] Sign Reading Time Taken Comments Blood Pressure 130/78 12/17/2023 9:30 AM EDT Pulse 64 12/17/2023 9:30 AM EDT Temperature - - Respiratory Rate 16 12/17/2023 9:30 AM EDT Oxygen Saturation - - Inhaled Oxygen Concentration - - Weight 97 kg (213 lb 12 oz) 12/17/2023 9:30 AM E DT Height - - Body Mass Index 31.11 06/15/2023 3:41 PM EST documented in this [...] as of this encounter Progress Notes * Hien Hunt CRNP - 12/17/2023 9:30 AM EDT Cardiology Outpatient Clinic Note 12/17/[address] Velazco Past medical history: CAD, status post CABG x2- singh to LAD, SVG to circumflex during AVR 2000 Valvular heart disease, status post open AVR with root reconstruction and coronary bypass in 2000 Severe prosthetic aortic valve stenosis, status post TAVR (26 mm CoreValve inside of old surgical valve) 06/24/2021 at [facility] with Dr. Barragan, patient experienced ventricular tachycardia requiring defibrillation and a brief period of asystole which required pacing- permanent pacemaker implanted 06/26/[address] Rodriguez. 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 Was last evaluated by Dr. Velazco approximately 4 months ago. Patient carries a history of severe prosthetic aortic valve stenosis undergoing TAVR in June. Postop course was complicated by bradycardia and asystole requiring pacing. Permanent pacemaker was implanted on 06/2021. Most recent device interrogation dated 09/2023 showed appropriate function in thresholds. No episodes of AFib. Battery life of approximately 2.5 years. Today the patient presents feeling well and offers no acute concerns. Denies any exertional chest pain. Shortness of breath at baseline. Will occasionally feel palpitations but symptoms are generallynon bothersome and not sustained. No lightheadedness or dizziness but does have difficulty with strength when walking. Ambulates with a wheeled walker. No recent falls. No orthopnea, PND, or increased lower extremity edema. No fever, chills, cough, hematochezia, melena, or hemoptysis. He is normally very compliant with his medications and offers no side effects. Current Outpatient Medications Medication Sig Dispense Refill [...] 1,000 mcg daily . 30 Tablet 11 Nitroglycerin 0.4 MG Sublingual Tablet Sublingual (Nitrostat) DISSOLVE 1 TABLET UNDER THE TONGUE EVERY 5 MINUTES NEEDED FOR CHEST PAIN. 25 Tablet 3 Albuterol Sulfate HFA 108 (90 Base) MCG/ACT Inhalation Aerosol Solution Inhale 2 Puffs by mouth every 4 hours as needed for Wheezing. 6.7 g 5 traMADol HCl 50 MG Oral Tablet (Ultram) Take 1 Tablet by mouth every 6 hours as needed for Pain, Severe. 30 Tablet 0 Levothyroxine Sodium 25 MCG Oral Tablet (Levoxyl) [...] 1 Tablet by mouth every other day. OneTouch Delica Lancets 33G USE TO TEST ONCE DAILY. 100 Each 3 OneTouch Ultra In Vitro Strip (Glucose Blood) Use to test once daily. Dx E11.9 100 Strip 5 DIURETIC TITRATION PLAN If no improvement on day 3, contact heart failure managing provider. 1 Each0 No current facility-administered medications for this visit. Past Medical History: Diagnosis Date ASCVD (arteriosclerotic cardiovascular disease) Coronary atherosclerosis of nikolski coronary artery Depression Diabetes mellitus, type 2 [...] mellitus with peripheral vascular disease (HCC) 12/14/2018 Past Surgical History: Procedure Laterality Date ASCENDING AORTA GRAFT W/BYPASS,ROOT REPLACE 1999 BYPASS GRAFT ANGIOGRAPHY W/LEFT HEART CATH 06/16/2021 BYPASS GRAFT ANGIOGRAPHY W/LEFT HEART CATH performed by Gallo Urbina DO at [facility] CABG, ARTERIAL, TWO 1999 [facility] CATARACT SURGERY,COMPLEX 05/2004 CATHETERIZE LEFT HEART THRU SKIN 01/09/09 LEFT HEART CATH, PERCUTANEOUS performed by JOSH DOTY at [facility] COLONOSCOPY 11/27/02 Divertuculosis COLONOSCOPY, DIAGNOSTIC (RECTUM) 08/12/2016 adenomatous polyps, diverticulosis, repeat 3 yrs/COLONOSCOPY FLEXIBLE PROXIMAL DIAGNOSTIC performedby Benjamin Lee MD at [facility] COLONOSCOPY, DIAGNOSTIC (RECTUM) 04/10/2019 diverticulosis / [facility] COLONOSCOPY, GI REFERRAL OP 12/04/05 diverticulosis--repeat 5 years CORONARY ANGIOGRAPHY W/LEFT HEART CATH Bilateral 10/09/2019 CORONARY ANGIOGRAPHY W/LEFT HEART CATH performed by Josh Doty MD at [facility] INSERT/REPLACE PACEMAKER,ATRIAL/VENTRICULAR Left 06/26/2021 NEW DDD PACEMAKER IMPLANT performed by Lamin Rodriguez MD at [facility] RADICAL REMOVAL OF PROSTATE 03/2004 Hopkin's (laproscopic) REPLACE AORTIC VALVE, PERCUTANEOUS FEMORAL Right 06/24/2021 REPLACE AORTIC VALVE, PERCUTANEOUS FEMORAL performed by Gene Barragan MD at [facility] REPLACE AORTIC VALVE, PERCUTANEOUS FEMORAL 06/24/2021 REPLACE AORTIC VALVE, PERCUTANEOUS FEMORAL performed by Kavon Hoffman MD at [facility] Social History Tobacco Use Smoking status: Former Current packs/day: 0.00 Average packs/day: 0.5 packs/day for 5.0 years (2.5 ttl pk-yrs) Types: Cigarettes Start date: 07/19/1958 Quit date: 07/19/1963 Years since quittin.4 Passive exposure: Past Smokeless tobacco: Never Vaping Use Vaping status: Never Used Substance Use Topics Alcohol use: No Drug use: No Review of patient's allergies indicates: Allergen Reactions Penicillins jointpain Review of Systems: See HPI for pertinent positives. All others negative, other than those noted in HPI. Physical Exam BP 130/78 (BP Site: Left Arm, BP Position: Sitting, BP Cuff Size: Regular) | Pulse 64 | Resp 16 | Wt 97 kg (213 lb 12 oz) | BMI 31.11 kg/m | BSA 2.18 m General: No acute distress. A+Ox3. HEENT: Normocephalic. Atraumatic. Conjunctiva and sclera clear. NECK: No carotid bruits. No JVD. Carotid upstrokes are brisk. Heart: RRR. S1 and S2 noted. +2/6 systolic murmur. +ppm site healed Lungs: Clear to auscultation. No wheezes, rhonchi, rales. Abdomen: Normal bowel sounds. Soft. Nontender. No masses or organomegaly. No abdominal bruits. Extremities: +1 bilateral lower extremity edema to the sock line. No clubbing or cyanosis. Pulses: radial=2/4, posterior tibial=2/4, dorsalis pedis = 2/4. NEURO: No focal deficits. PSYCH: Normal. Lab data/imaging study review: Echo 08/05/2022- 1 year post TAVR The examination is adequate to evaluate the referral indication. The qualitative LV ejection fraction is 55-59% (normal). The LV wall thickness is moderately increased (concentric). The left ventricular wall motion is normal. The patient is status post TAVR with CoreValve prosthetic valve. Peak transaortic systolic velocity is 2.5 m/sec with a mean gradient of 12 mmHg Significant aortic valve prosthesis regurgitation is absent. Mild mitral regurgitation is present. The aortic root is moderately enlarged, 4.5 cm. The ascending aorta is mildly enlarged, 4.4 cm. Compared to study 01/07, TAVR systolic gradients unchanged, aortic root diameter stable, mild ascending aortic enlargement now present. Echocardiogram 07/24/2021 - one-month post TAVR The left ventricular cavity size is normal. The LV wall thickness is moderately increased (concentric). The septal motion is abnormal consistent with right ventricular pacemaker. The remaining left ventricular wall segments are mildly hypokinetic. The qualitative LV ejection fraction is 45-49% (mildly reduced). The left ventricular diastolic function is mildly abnormal (grade I). The patient is status post TAVR with CoreValve prosthetic valve. The peak aortic valve velocity throught the TAVR is 2.7 m/sec. The mean systolic gradient through the TAVR is 14 mmHg. Mild mitral regurgitation is present. Mild tricuspid regurgitation is present. There is no evidence of pulmonary hypertension. The proximal ascending thoracic aorta is moderately enlarged. (4.5 cm) TTE 06/25/21- POD 1 The examination is adequate to evaluate the referral indication. The patient is status post TAVR with CoreValve prosthetic valve. Peak transaortic systolic velocity is 3 m/sec with a mean gradient of 18 mmHg Significant aortic valve prosthesis regurgitation is absent. The qualitative LV ejection fraction is 40-44% (mildly reduced). There is diffuse mild hypokinesis to hypokinesis. The right ventricular cavity is moderately dilated. The right ventricular systolic function is qualitatively normal. Mild mitral regurgitation is present. Mild pulmonary hypertension is present. The estimated pulmonary artery systolic pressure is 40mm Hg. Echo 11/2020 The examination is adequate to evaluate the referral indication. The left ventricular cavity size is normal. The LV wall thickness is moderately increased (concentric). The qualitative LV ejection fraction is 55-59% (normal). There is mild basal inferior wall hypokinesis. The regional left ventricular wall motion is otherwise normal. Left atrial enlargement suggests diastolic left ventricular dysfunction. The left atrium is mildly enlarged (35-41 ml/m^2). The aortic root is moderately enlarged. The proximal ascending thoracic aorta is normal sized. The estimated pulmonary artery systolic pressure is 50mm Hg. There is an aortic valve bioprosthetic present. There is severe aortic valve prosthesis stenosis, Peak instantaneous pressure gradient across the aortic valve is approximately 60- 64 mmHg, with mean pressure gradient approximately 36 mmHg. Moderate intravalvular aortic regurgitation is present. Compared to previous study dated 08/20/2020, severity of aortic valve stenosis appears stable. Impression/Plan: This is an 88 year old male who is being evaluated in the cardiology office for ongoing care/risk management for the below diagnoses. 1. Chronic diastolic CHF (congestive heart failure), NYHA class 3 (HCC) -Euvolemic on exam. VILLALOBOS at baseline. -NYHA class 2 1. Continue Lasix 40 mg daily 3. Stenosis of prosthetic aortic valve 4. S/P TAVR 5. HFrEF -Status post open AVR with root reconstruction and coronary bypass in 2000 -Severe prosthetic aortic valve stenosis, status post TAVR (26 mm CoreValve inside of old surgical valve) 06/24/2021 at [facility] with Dr. Barragan. -LVEF mildly reduced secondary to severe , 40-44%, now resolved 55-59%. Patient on goal-directed medical therapy with a metoprolol succinate 25 mg daily. Unable to add DWAIN-inhibitor due borderline hypotension Continue ASA 81 mg daily Antibiotics are needed for all dental work: Clindamycin due to penicillin allergy. Repeat echocardiogram in the fall to reassess TAVR gradients 6. CHB (complete heart block) (HCC) 7. Presence of permanent cardiac pacemaker -During TAVR procedure (06/2021) patient experienced ventricular tachycardia requiring defibrillation and a brief period of asystole which required pacing- permanent pacemaker implanted 06/26/[address] Rodriguez. -Device functioning appropriately on last interrogation. 1. Continue to follow with device Clinic as scheduled. 8. Coronary artery disease involving nikolski coronary artery of nikolski heart without angina pectoris -Status post CABG x2 in 2000. -Stable, no current exertional angina. Has been having ongoing shoulder blade discomfort which has been present for 10+ years, takes nitroglycerin occasionally. None recently. 1. Continue aspirin and atorvastatin. 9. Dyslipidemia, goal LDL below 70 1. Continue atorvastatin 80 mg daily The patient agrees to the above plan and will call with additional questions or concerns. ER with all emergencies advised. Follow-up: Return in about 6 months (around 06/17/2024). | Check-out note: Echo prior to follow up I spent a total of 30 minutes on the date of service in preparation, delivery, and documentation ofthe care provided to Tansaida Prescott excluding any time spent in the performance of separately billed services. SABAS Baker, Department of Cardiology This chart was completed in part utilizing [facility] Speech Voice Recognition Software. Grammatical errors, random word insertions, prounoun errors, and incomplete sentences are an occasional consequence of this system due to software limitations, ambient noise, and hardware issues. Any formal questions or concerns about the content, text, or information contained within the body of this dictation should be directly addressed to the provider for clarification. documented in this encounter Nursing Notes * Pura Moe CMA - 12/17/2023 9:30 AM EDT Examination Room: 7 Name: Tan Prescott Date of : (1935). Reason for Visit: follow up Interim Hospitalization(s): denies Problems/Concerns: denies Chest Pain/SOB: denies [facility] Discussed: Not applicable [facility] is a way you can talk to your provider online through e-mail. Would you like to sign up? I can activate it for you? ALREADY ACTIVE Patient was instructed to not get up on the exam table until directed and assisted by their provider; patient is to remain seated in the chair/ wheelchair/ exam table for fall prevention and safety reasons. Patient is aware to have assistance to step down off exam table with personnel. Patient voiced full comprehension of instructions. documented in this encounter Plan of Treatment Upcoming Encounters Date Type Department Care Team (Late st Contact Info) Description 01/13/2024 10:40 AM EDT Office Visit General Internal Medicine [facility] [address] [place] [address] Mariza Hill MD [address] [facility] [place] [address] 06/05/2024 3:00 PM EST Cardiac Studies Cardiac Studies, [facility] [address] [place] [address] 06/20/2024 2:00 PM EST Office Visit Cardiology, [facility] [address] [place] [address] Hien Hunt CRNP [address] [place] [address] Scheduled Orders Name Type Priority Associated Diagnoses Orde r Schedule ECHO, COMPLETE (2D), TRANS-THORACIC Echocardiology Routine Chronic diastolic CHF (congestive heart failure), NYHA class 3 (HCC) Stenosis of prosthetic aortic valve, 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) HFrEF (heart failure with reduced ejection fraction) (HCC) CHB (complete heart block) (HCC) Cardiac pacemaker in situ Coronary artery disease involving nikolski coronary artery of nikolski heart without angina pectoris Dyslipidemia, goal LDL below 70 Expected: 06/17/2024, Expires: 01/15/2026 LIPID PANEL WITH DIRECT LDL IF TG IS HIGH Lab Routine Chronic diastolic CHF (congestive heart failure), NYHA class 3 (HCC) Stenosis of prosthetic aortic valve, 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) HFrEF (heart failure with reduced ejection fraction) (HCC) CHB (complete heart block) (HCC) Cardiac pacemaker in situ Coronary artery disease involving nikolski coronary artery of nikolski heart without angina pectoris Dyslipidemia, goal LDL below 70 Expected: 12/17/2023, Expires: 2024 Health Maintenance Due Date Last Done Comments [...] Additional history exists CKD PHOS USE SMARTSET 85133 06/15/202405/20, 06/02/2022, 06/16/2021, Additional history exists CKD HGB USE SMARTSET 05429 09/01/202409/01, 09/01/2023, 06/15/2023, Additional history exists TSH [...] this encounter Medical Devices Implanted Type Area Test Preparation Tutor Device Identifier Shelf Expiration Date Model / Serial / Lot Balloon Cath Pacing [id number] - [id number] Implanted:Qty: 1 on 06/24/2021 at [facility] BARD : MEDICAL [id number] 01/15/2023 [id number] / / [id number] Valve Aort Evolut Proplus 26mm - [id number] Implanted:Qty: 1 on 06/24/2021 at [facility] [employer] : CARDIAC SURGERY [id number] 02/11/2022 EVPROPLUS- 26US / [id number] / [id number] Lead Tempo Temp Pacing - [id number] Implanted:Qty: 1 on 06/24/2021 at [facility] [employer] [id number] 01/16/2022 [id number] / / [id number]-Rf Hp0022 - [id number] Implanted:Qty: 1 on 06/26/2021 by Lamin Rodriguez MD at [facility] [employer] [id number] 07/18/2022 [id number] / [id number] / [id number] Lead Pace Tendril 52cm - [id number] Implanted:Qty: 1 on 06/26/2021 by Lamin Rodriguez MD at [facility] [employer] : CARDIAC RHYTHM MGMT [id number] 01/16/2024 [id number]/52 / [id number] / [id number] Lead Pace Selectsecure 3830-69 - [id number] Implanted:Qty: 1 on 06/26/2021 by Lamin Rodriguez MD at [facility] [employer] : CRM [id number] 05/05/2023 [id number] / [id number] / [id number] documented as of this encounter Visit Diagnoses Diagnosis Chronic diastolic CHF (congestive heart failure), NYHA class 3 (HCC)- Primary Chronic diastolic heart failure Stenosis of prosthetic aortic valve, 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) Heart valve replaced by other means HFrEF (heart failure with reduced ejection fraction) ([facility]) CHB (complete heart block) ([facility]) Atrioventricular block, complete Cardiac pacemaker in situ Coronary artery disease involving nikolski coronary artery of nikolski heart without angina pectoris Dyslipidemia, goal LDL below 70 Other and unspecified hyperlipidemia documented in this encounter Advance Directives Documents on File Type Date Recorded Patient Machine Rough Rounder Expl anation Power of Milieu Counselor 01/28/2004 * Full Code (Latest Code Status [...] 1:24 PM 01/28/2004 1:24 PM Care Teams Professor Of Music Relationship Specialty Start Date End Date Mariza Hill MD [address] [place] [address] PCP - General 10/01/09 documented as of this encounter
--- OUTSIDE RECORDS SUMMARY | 2024-03-02 23:57 | External Medical Summary ---
Author Name Unknown Address Unknown Organization K09[facility] [place] [address] Laboratory Report Ordering Provider Test Date Status TAJ PRITCHARD 01/19/2024 14:57:59 Final Observation Date Value Abnormality Reference (Units ) Status WBC, Total 01/19/2024 14:57:59 8.04 4.00-10.8 0 (K/uL) Final RBC 01/19/2024 14:57:59 4.07 4.50-5.25 (M/uL) Final Hemoglobin 01/19/2024 14:57:59 12.4 Below low normal 14 .0-16.8 (g/dL) Final HCT 01/19/2024 14:57:59 38.7 Below low normal 40. 0-48.4 (%) Final MCV 01/19/2024 14:57:59 95.1 82.0-99.5 (fL) Final MCH 01/19/2024 14:57:59 30.5 27.0-34.0 (pg) Final MCHC 01/19/2024 14:57:59 32.0 32.0-36.0 (g/dL) Final RDW 01/19/2024 14:57:59 14.9 11.5-15.5 (%) Final Platelets 01/19/2024 14:57:59 162 140-400 (K /uL) Final MPV 01/19/2024 14:57:59 11.3 6.6-11.1 ( fL) Final Performing Location [facility] [place] [address]
--- OUTSIDE RECORDS SUMMARY | 2024-03-02 23:57 | External Medical Summary ---
Author Name Unknown Address Unknown Organization [facility] [place] [address] Laboratory Report Ordering Provider Test Date Status TAJ PRITCHARD 01/19/2024 14:57:59 Final Observation Date Value Abnormality Reference (Units ) Status SYNC LEUKOCYTES IN BLOOD BY AUTOMATED COUNT 01/19/2024 14:57:59 8.04 4.00-10.80 (K/uL) Final Segs 01/19/2024 14:57:59 66.0 40.0-75.0 (%) Final Lymphs % 01/19/2024 14:57:59 21.4 18.0-42.0 (%) Final Monos 01/19/2024 14:57:59 9.8 1.0-11.0 (%) Final Eosinophils 01/19/2024 14:57:59 2.2 0.0-6.0 (%) Final Basos 01/19/2024 14:57:59 0.6 0.0-2.0 (%) Final Absolute Segs 01/19/2024 14:57:59 5.30 1.80-7.70 (K/uL) Final Lymphs, absolute 01/19/2024 14:57:59 1.72 1.00-4.80 (K/ul) Final Monos, Abs 01/19/2024 14:57:59 0.79 0.00-1.10 (K/uL) Final Eos, Abs 01/19/2024 14:57:59 0.18 0.00-0.70 (K/uL) Final Basos, Abs 01/19/2024 14:57:59 0.05 0.00-0.20 (K/uL) Final Performing Location [facility] [address]
--- OUTSIDE RECORDS SUMMARY | 2024-03-02 23:57 | External Medical Summary ---
Author Name Unknown Address Unknown Organization [id number][place] [facility] [place] [address] [place] [address] Laboratory Report Ordering Provider Test Date Status TAJ PRITCHARD 01/19/2024 15:06:18 Final Normal: <30 mg/g creatinine< br/>High: 30-300 mg/g creatinine
Very High: >300 mg/g creatinine
Nephrotic: >2200 mg/g creatinine Observation Date Value Abnormality Reference (Units ) Status Albumin, Urine 01/19/2024 15:06:18 <1.20 (mg/dL) Final Creatinine, Urine 01/19/2024 15:06:18 194 (mg/dL) Final Albumin/Creatinine [Mass Ratio] in Urine 01/19/2024 15:06:18 <6 <30 (mg/g Creat) Final Performing Location [place] [place] [address] [place] [address]
--- OUTSIDE RECORDS SUMMARY | 2024-03-02 23:57 | External Medical Summary ---
Author Name Unknown Address Unknown Organization [id number]:[facility]ORY [facility] [place] - [address] [facility] [address] Laboratory Report Ordering Provider Test Date Status TAJ PRITCHARD 01/19/2024 14:57:59 Final Observation Date Value Abnormality Reference (Units ) Status HbA1C 01/19/2024 14:57:59 6.5 Above high normal 4. 0-5.6 (%) Final The use of HbA1c to monitor glycemic status is based on normal hemoglobin and HbA composition. This test should not be used in patients with abnormal hemoglobin that affects the half life of the red blood cell or the in vivo glycation rates. Glucose, estimated average 01/19/2024 14:57:59 140 Above high normal <126 (mg/dL) Ricardo reed Performing Location [facility]ORY [facility] [place] - [address] [facility] [address]
--- OUTSIDE RECORDS SUMMARY | 2024-03-02 23:57 | External Medical Summary | Summary of Care ---
Author Name Unknown Organization [facility] Address [address] [place] [address] Phone [phone] Care Team Providers Care Brakeshoe Repairer Name Role Phone Mariza Hill MD Primary Care Provider + Reason for Visit * Reason Onset Date Comments Fax 10/18/2023 Encounter Details Date Type Department Care Team (Late st Contact Info) Description 10/18/2023 Telephone General Internal Medicine [facility] [address] [facility] [place] [address] Mariza Hill MD [address] [place] [address] Fax Allergies Active Allergy Reactions Criticality Noted Date Comments Penicillins 07/05/2001 jointpain documented as of this encounter (statuses as of 11/05/2023) Medications Medication Sig Dispensed Refills Start Date End Date Status MULTIVITAMINS OR TABS daily 0 01/22/2004 Active BENADRYL 25 MG PO CAPS 2 at bedtime for sleep prn 0 12/14/2008 Active Clindamycin HCl 300 MG Capsule TAKE 2 CAPSULES BY MOUTH 1 HOUR PRIOR TO DENTAL APPOINTMENT 0 09/20/2019 Active Aspirin 81 MG Oral Tablet [...] contact heart failure managing provider. 1 Each 0 03/25/2023 Active traMADol HCl 50 MG Oral Tablet (Ultram)Indications :Contusion of right hip, initial encounter,Sacral contusion, initial encounter Take 1 Tablet by mouth every 6 hours as needed for Pain, Severe. 30 Tablet 0 08/17/2023 Active Levothyroxine Sodium 25 MCG Oral [...] THE MORNING 90 Tablet 3 09/13/2023 Active documented as of this encounter (statuses as of 11/05/2023) Active Problems Problem Noted Date Diagnosed Date [...] as of this encounter (statuses as of 11/05/2023) Resolved Problems Problem Noted Date Diagnosed Date [...] Markers for Patients with Cardiovascular Disease Project #[id number] PI: Keya Frederick MD Please call [phone] with study related questions Chest pain 01/09/2009 07/31/2014 GENOMICS CARDIO RESEARCH OTHER*[id number] 01/09/2009 08/25/2016 Overview: Renamed Per Clinical Trials Billing Project. Study Titile: Genomic Markers for Patients with Cardiovascular Disease Project #[id number] PI: Keya Frederick MD Please call [phone] with study related questions Lyme disease 02/07/2007 [...] NEOPL PROSTATE 01/07/20042018 Overview: Radical prostatectomy @ [facility] c/o unavoidable "leakage" Pt agrees to [...] as of this encounter (statuses as of 11/05/2023) Immunizations Name Administration Dates Next Due COVID-19 mRNA, LNP-s, No Pre serve, 2-Dose Series (Punch!) 04/22/2021,09/25/2020,09/04/2020 COVID-19, LNP-s, No Preserve , Sincere-sucrose, Ages 12+ (Punch!) 02/11/2022 Covid-19, Mrna, Lnp-s, Pf, B ivalent, 30 Mcg, IM, 12 yrs and above (Punch!) 06/18/2022 Hepatitis B, 20+ yrs 08/27/2022,07/24/2022 Pneumococcal [...] encounter Miscellaneous Notes * Telephone Encounter - Lora Casas LPN - 11/05/2023 10:49 AM EDT Signed and faxed. Confirmation received. * Telephone Encounter - Lora Casas LPN - 10/28/2023 12:20 PM EDT Both have been received and are awaiting signature at this time. * Telephone Encounter - Joelle Salazar OSA - 10/28/2023 10:06 AM EDT Received a call asking if fax was received by office. Name/Company sending fax: [facility] What fax is pertaining to: Plan of care Date(s) they sent request: 10/21 & 10/07, 10/11. Verified fax number they are sending to is correct (Y or N): Yes Callback Number for the clinic to call to verified if fax was received: [phone] There should be 2 plans of care. One for 06/22/2023-08/02/2023, need the delayed certification signed. And then one from 10/07-11/17 that needs to be signed. Please advise if both were received. * Telephone Encounter - Carine Kelly OSA - 10/21/2023 12:59 PM EDT Lesly called to check the status of the fax. She was made aware that it was not received. She stated that they were faxing it to [phone], she was provided an alternative fax number of [phone]. Once received, they need signed and sent back [facility] for processing. * Telephone Encounter - Ria Rubin OSA - 10/18/2023 10:55 AM EDT Received a call asking if fax was received by office. Name/Company sending fax: Dariana from [facility] in [place] What fax is pertaining to: Pt's plan of care for date of service 10/08/23 Date(s) they sent request: 10/07 and 10/11 Verified fax number they are sending to is correct (Y or N): y Callback Number for the clinic to call to verified if fax was received: [phone] documented in this encounter Plan of Treatment Upcoming Encounters Date Type Department Care Team (Late st Contact Info) Description 12/17/2023 9:30 AM EDT Office Visit Cardiology, [facility] [address] [place] [address] Hien Hunt CRNP [address] [place] [address] 01/13/2024 10:40 AM EDT Office Visit General Internal Medicine [facility] [place] [address] [place] [address] Mariza Hill MD [address] [facility] [address] [place] [address] Health Maintenance Due Date Last Done Comments [...] Additional history exists CKD PHOS USE SMARTSET 09978 06/15/202405/20, 06/02/2022, 06/16/2021, Additional history exists CKD HGB USE SMARTSET 49474 09/01/202409/01, 09/01/2023, 06/15/2023, Additional history exists TSH 09/01/2024 09/01/2023, 05/20, 08/20/2020, Additional history exists DTaP,Tdap,and Td Vaccines (2 - Td or Tdap) 11/14/2024 11/14/2014 Pneumococcal Vaccine: 65+ Years Completed 04/30/2015, 05/09/2007, 07/05/2001 COLONOSCOPY-EVERY 3 YRS AGES 18-100 Discontinued 04/10/2019, 08/12/2016, 08/12/2016, Additional history exists Zoster Vaccines Completed 07/29/2022, 1202/2020, 08/20/2011 Influenza Vaccine (FLU shot) Completed 05/02/2023, 04/15/2022, 04/23/2021, Additional history exists GARDASIL-HPV IMMUNIZATION SERIES Aged Out No longer eligible based on patient's age to complete this topic MENINGOCOCCAL (MENACTRA/MENVEO) Aged Out No longer eligible based on patient's age to complete this topic documented as of this encounter Medical Devices Implanted Type Area Breakdown Worker Device Identifier Shelf Expiration Date Model / Serial / Lot Balloon Cath Pacing [id number] - [id number] Implanted:Qty: 1 on 06/24/2021 at [facility] [employer] : MEDICAL [id number] 01/15/2023 [id number] / / [id number] Valve Aort Evolut Proplus 26mm - [id number] Implanted:Qty: 1 on 06/24/2021 at [facility] [employer] : CARDIAC SURGERY [id number] 02/11/2022 EVPROPLUS- 26US / [id number] / [id number] Lead Tempo Temp Pacing - [id number] Implanted:Qty: 1 on 06/24/2021 at [facility] [employer] [id number] 01/16/2022 [id number] / / [id number]-Rf [id number] - [id number] Implanted:Qty: 1 on 06/26/2021 by Lamin Rodriguez MD at [facility] [employer] [id number] 07/18/2022 [id number] / [id number] / [id number] Lead Pace Tendril 52cm - [id number] Implanted:Qty: 1 on 06/26/2021 by Lamin Rodriguez MD at [facility] [employer] : CARDIAC RHYTHM MGMT [id number] 01/16/2024 [id number]/52 / [id number] / [id number] Lead Pace Selectsecure 3830-69 - [id number] Implanted:Qty: 1 on 06/26/2021 by Lamin Rodriguez MD at [facility] [employer] : CRM [id number] 05/05/2023 [id number] / [id number] / [id number] documented as of this encounter Advance Directives Documents on File Type Date Recorded Patient Systems Administrator Expl anation Power of Tv Production Assistant 01/28/2004 Latest Code Status on File Code Status Date Activated Date Inactivated Comments Full Code 06/24/2021 2:03 PM 06/27/2021 3:04 PM This order reflects the patients wishes and were consensually agreed upon. Code Status History Code Status Date Activated Date Inactivated Comments Full Code 01/05/2021 11:11 AM 01/07/2021 4:07 PM This order reflects the patients wishes and were consensually agreed upon. Question Answer Comments Discussion of Advance Directives occurred with: Not Discussed None 01/28/2004 1:24 PM 01/28/2004 1:24 PM Care Teams Brakeshoe Repairer Relationship Specialty Start Date End Date Mariza Hill MD [address] [place] [address] PCP - General 10/01/09 documented as of this encounter
--- OUTSIDE RECORDS SUMMARY | 2024-03-02 23:57 | External Medical Summary ---
Author Name Unknown Address Unknown Organization K09:[facility] [place] [address] Laboratory Report Ordering Provider Test Date Status TAJ PRITCHARD 01/19/2024 14:57:59 Final Observation Date Value Abnormality Reference (Units ) Status BUN 01/19/2024 14:57:59 28 Above high normal 6-20 (mg/dL) Final Creatinine 01/19/2024 14:57:59 1.3 Above high normal 0.6-1.2 (mg/dL) Final Glomerular filtration rate/1.73 sq M.predicted [Volume Rate/Area] in Serum, Plasma or Blood by Creatinine-based formula (CKD-EPI) 01/19/2024 14:57:59 56 Below low normal >=60 (mL/min) Final eGFR is calculated based on the CKD-EPI 2020 equation Sodium 01/19/2024 14:57:59 141 135-146 (m mol/L) Final Potassium 01/19/2024 14:57:59 4.7 3.5-5.1 (m mol/L) Final Cl 01/19/2024 14:57:59 102 98-107 (mm ol/L) Final CO2 01/19/2024 14:57:59 26 22-32 (mmo l/L) Final Anion gap 01/19/2024 14:57:59 13 7-15 (mmol /L) Final Glucose 01/19/2024 14:57:59 98 70-120 (mg /dL) Final Calcium 01/19/2024 14:57:59 9.5 8.4-10.2 ( mg/dL) Final Performing Location [facility] [place] [address]
[2024-03-03 00:49] LABS: ANTI-Xa, UFH(UnfractionatedHep 0.54 IU/ml (0.3-0.7)
[2024-03-03 08:02] LABS: Hemoglobin 12.1 g/dl (14.0-18.0); Mean Corpuscular Hemoglobin 30.3 pg (25.0-34.0); Mean Corpuscular Hgb Conc 32.7 g/dL (32.0-36.0); Mean Corpuscular Volume 92.7 fL (80.0-100.0); Mean Platelet Volume 11.8 fL (9.4-12.4); Platelet Count 156 K/uL (130-400); RDW Coefficient of Variation 14.9 % (11.5-14.5); RDW Standard Deviation 51.4 fL (36.4-46.3); Red Blood Count 3.99 M/uL (4.70-6.10); White Blood Count 7.73 K/ul (4.8-10.8)
[2024-03-03] MEDS: CYANOCOBALAMIN (B-12) 500 MCG TABLET PO SCH (08:04)
[2024-03-03] MEDS: POTASSIUM CHLORIDE CRTAB 20 MEQ TABCR PO SCH (08:04)
[2024-03-03] MEDS: MULTIVITAMIN TAB PO SCH (08:04)
[2024-03-03] MEDS: FUROSEMIDE 40 MG TAB PO SCH (08:04)
[2024-03-03] MEDS: ASPIRIN 81 MG ECTAB PO SCH (08:04)
--- NOTE | 2024-03-03 08:09 | Hospitalist Progress Note ---
Date of Service March 03, 2024 Assessment & Plan (1) CAD (coronary artery disease), [place] coronary artery: (2) History of heart bypass surgery: (3) History of aortic valve replacement: (4) HLD (hyperlipidemia): (5) T2DM (type 2 diabetes mellitus): (6) History of radical prostatectomy: Plan This is an 88-year-old male with PMHx of CAD status post bypass with open heart surgery, bovine aortic valve replacement followed by more recent TAVR, AAA measuring 4.5 cm, cardiomegaly, s/p pacemaker with recent detection of atrial fibrillation after interrogation as outpatient. It was noted that one of his episodes lasted over 10 hours. He was also prescribed Eliquis yesterday by cardiology, however the patient had not been made aware of this new prescription. He was also noted that he has been working with PCP to lower the dose of metoprolol XL 25 mg to 12.5 mg daily due to hypotensive episodes which occurred approximately 1 week ago. Other PMHx includes DM type II, history of prostate cancer, depression, anxiety, CKD stage III, history of TIA. #New onset A-fib with RVR Prior metoprolol dosing discontinued 2/2 hypotension s/p IV amiodarone, now 400mg BID oral Follow on Tele for 24-48 hours Cardiology following, appreciate recommendations Continue heparin drip with plans to transition to DOAC upon d/c -$363.85 Eliquis copay, will discuss alternative agents or 1 month free trial Monitor on tele #CAD, status post CABG x2- singh to LAD, SVG to circumflex during AVR 2000 #Chronic Heart failure with preserved EF Elevated BNP iso tachyarrhythmia above Continue daily PO lasix Continue ASA and statin #Severe prosthetic aortic valve stenosis, status post TAVR c/b VT and asystole with PPM implantation #Valvular heart disease, status post open AVR with root reconstruction and coronary bypass in 2000 Continue ASA Monitor BP #HLD #History of TIA 12/2020 Continue ASA and Statin #Type 2 diabetes A1C 6.5 in 01/2024 Hold home metformin, ISS #History of prostate cancer status post radical prostatectomy stable #Presumptive Lyme disease -Was placed on doxycycline on 02/21 for a 1 week course by PCP , course finished DVT ppx: heparin drip, working on OP DOAC regimen at this time Lines: PIV x 1 FEN/GI: HH diet CODE: Full Dispo: From home, likely to remain in the hospital x 1-2 days Admission and Anticipated Discharge Date Admission Date: March 02, 2024 Subjective NAEO Reports feeling fairly well this morning. Denies any chest pain or palpitations, states sob seems improvement and no overwhelming fatigue Physical Exam Constitutional: WD/WN, vitals as above Respiratory: normal respiratory effort, lungs clear to auscultation Cardiovascular: irregularly irregular Gastrointestinal (Abdomen): normal bowel sounds, soft, nontender, no hepatosplenomegaly Results & Data Results & Data Vital Signs (Past 12 Hours) Vital Signs Temp Pulse Resp BP Pulse Ox O2 Del Method 03/03/24 07:41 36.6 C 81 18 120/79 97 Room Air 03/03/24 02:44 36.4 C L 83 18 120/81 97 Room Air 03/02/24 22:59 36.6 C 80 18 115/74 96 Room Air 03/02/24 20:08 36.4 C L 82 18 112/75 97 Room Air Laboratory Results Short CBC 03/03/24 Range/Units 07:19 WBC 7.73 (4.8-10.8) K/ul Hgb 12.1 L (14.0-18.0) g/dl Hct 37.0 L (42.0-52.0) % Plt Count 156 (130-400) K/uL BMP 03/03/24 07:19 Sodium 138 Potassium 4.0 Chloride 105 Carbon Dioxide 27 BUN 30 H Creatinine 1.22 Glucose 92 Calcium 9.1 Medications Administered Home Medications Medication Instructions Recorded Confirmed Last Taken atorvastatin 80 mg tablet 80 mg PO HS 04/27/18 03/02/24 03/11/23 bupropion HCl 150 mg tablet,12 hr 150 mg PO Q12 04/27/18 03/02/24 03/12/23 sustained-release metformin 500 mg tablet 500 mg PO QAM 04/27/18 03/02/24 03/02/24 multivitamin 1 tab PO QAM 04/27/18 03/02/24 03/02/24 albuterol sulfate 90 mcg/actuation 2 puff inhalation Q4 PRN Wheezing 04/03/19 03/02/24 02/16/19 aerosol inhaler (ProAir HFA) diphenhydramine HCl 25 mg capsule 25 mg PO HS PRN Sleep 04/03/19 03/02/24 04/08/19 (Benadryl) furosemide 20 mg tablet 40 mg PO DAILY 04/03/19 03/02/24 03/02/24 aspirin 81 mg chewable tablet 81 mg PO DAILY 02/12/22 03/02/24 03/02/24 (Children's Aspirin) clindamycin HCl 300 mg capsule 600 mg PO ONCE PRN Prophylaxis 02/12/22 03/02/24 Unknown cyanocobalamin (vitamin B-12) 1,000 mcg sublingual DAILY 02/12/22 03/02/24 03/02/24 1,000 mcg sublingual tablet metoprolol succinate 25 mg 12.5 mg PO DAILY 02/12/22 03/02/24 03/02/24 tablet,extended release 24 hr iron,carbonyl 65 mg-vitamin C 125 1 tab PO .EVERY OTHER DAY 04/20/22 03/02/24 03/12/23 mg tablet,delayed release (Vitron-C) doxycycline hyclate 100 mg capsule 100 mg PO BID 03/02/24 03/02/24 03/02/24 levothyroxine 25 mcg tablet 25 mcg PO HS 03/02/24 03/02/24 Unknown potassium chloride 20 mEq 20 meq PO QAM 03/02/24 03/02/24 03/02/24 tablet,extended release apixaban 5 mg tablet (Eliquis) 5 mg PO UD #30 tabs 03/03/24 Unknown Active Medications Generic Name Dose Route Start Last Admin Trade Name Jahq PRN Reason Stop Dose Admin Amiodarone HCl 400 mg 03/02/24 21:00 03/03/24 08:03 Amiodarone 200 Mg Tab PO 04/01/24 20:59 400 mg BID MARY Administration Aspirin 81 mg 03/03/24 09:00 03/03/24 08:04 Aspirin 81 Mg Ectab PO 04/02/24 08:59 81 mg DAILY MARY Administration Atorvastatin Calcium 80 mg 03/02/24 21:00 03/02/24 20:30 Atorvastatin 40 Mg Tab PO 04/01/24 20:59 80 mg HS MARY Administration Benzonatate 100 mg 03/02/24 21:00 03/03/24 08:03 Benzonatate 100 Mg Capsule PO 04/01/24 20:59 100 mg TID MARY Administration Bupropion HCl 150 mg 03/02/24 21:00 03/03/24 08:03 Bupropion Sr 150 Mg Tabcr PO 04/01/24 20:59 150 mg Q12 MARY Administration Cyanocobalamin 1,000 mcg 03/03/24 09:00 03/03/24 08:04 Cyanocobalamin (B-12) 500 Mcg Tablet PO 04/02/24 08:59 1,000 mcg DAILY MARY Administration Furosemide 40 mg 03/03/24 09:00 03/03/24 08:04 Furosemide 40 Mg Tab PO 04/02/24 08:59 40 mg DAILY MARY Administration Heparin Sodium/Dextrose 25,000 units in 500 mls @ 19 mls/hr 03/02/24 18:15 03/02/24 18:52 Heparin Sodium/Dextrose IV 04/01/24 18:14 950 units/hr .Q24H MARY 19 mls/hr Administration Protocol 950 UNITS/HR Insulin Aspart 0 units 03/02/24 17:57 03/03/24 12:02 Insulin Aspart Per Unit Charge SC 04/01/24 17:56 Not Given ACHS MARY Levothyroxine Sodium 25 mcg 03/02/24 21:00 03/02/24 20:30 Levothyroxine Sodium 25 Mcg Tablet PO 04/01/24 20:59 25 mcg HS MARY Administration Multivitamins 1 tab 03/03/24 09:00 03/03/24 08:04 Multivitamin Tab PO 04/02/24 08:59 1 tab QAM MARY Administration Potassium Chloride 20 meq 03/03/24 09:00 03/03/24 08:04 Potassium Chloride Crtab 20 Meq Tabcr PO 04/02/24 08:59 20 meq QAM MARY Administration
[2024-03-03 08:17] LABS: BUN Creatinine Ratio 24.6 (10-20); Calcium 9.1 mg/dl (8.6-10.3); Creatinine Clr Calc Pharmacy 83.4 ml/min; Est GFR (African American) 61.4 ml/min
--- NOTE | 2024-03-03 14:25 | Cardiology Progress Note ---
Date of Service March 03, 2024 Assessment & Plan (1) New onset a-fib: (2) S/P TAVR (transcatheter aortic valve replacement): Plan: Valve in valve procedure with remote surgical aortic valve replacement. Valve functioning normally (3) History of aortic valve replacement: (4) CAD (coronary artery disease), [place] coronary artery: Plan: Prior coronary bypass grafting with patent grafts 2020 (5) HLD (hyperlipidemia): Plan 88-year-old male with complex cardiac history presents with generalized concerns of recent fatigue and declining functional capacity. Pacer interrogation reveals short runs of atrial fibrillation in the past with sustained atrial fibrillation since morning of 02/29/2024. Atrial fibrillation rates are mild to moderately elevated 110-120 bpm. Patient not aware of tachypalpitations but does feel more fatigued as noted. Extensive evaluation outpatient and patient noted 1. New onset atrial fibrillation with prior salvos of paroxysmal atrial fibrillation briefly on prior pacemaker interrogations. Duration greater than 48 hours on presentation. Discussed in detail with patient and daughter (nurse). Prior metoprolol discontinued due to relative hypotension. Options of management discussed will initiate IV then oral amiodarone. Daily EKG. Anticoagulation with IV heparin initially. Discussed potential risk of conversion to sinus rhythm with inherent risk of stroke. Anticoagulation begun due to concern with IV heparin with plans to transition long-term to oral regimen post discharge Will maintain on telemetry at least 24 to 48 hours BNP likely elevated secondary to elevated ventricular rates with underlying valvular heart disease, ischemic heart disease Pacemaker present eliminates concerns regarding bradycardia arrhythmia Patient and daughter in agreement to plan 03/03/2024 Patient stable denies any cardiac blood pressure somewhat variable but tolerating amiodarone. Impression: Complex 88-year-old male with underlying coronary disease and valvular heart disease newly observed atrial fibrillation, persistent since a.m. 02/29/2024 by device interrogation 1. New onset atrial fibrillation with elevated ventricular response rate Will continue amiodarone load 400 mg p.o. 3 times daily. EKG today without QT prolongation On anticoagulation with IV heparin. Okay to transition to oral with Eliquis Continue telemetry additional 24 hours Admission and Anticipated Discharge Date Admission Date: March 02, 2024 Subjective Patient seen and personally examined. Telemetry reviewed. Patient denies any chest pain or shortness of breath no dizziness or lightheadedness. Remains in atrial fibrillation though with better controlled heart rates generally below 100 on current dosing. No hypoxia No edema Review of Systems Review of Systems: All systems reviewed & are unremarkable except as noted in Subjective Physical Exam Constitutional: no acute distress Eyes: PERRL, conjunctivae normal, anicteric sclerae ENMT: external ear and nose normal, oropharynx normal Neck: trachea midline, no thyromegaly Respiratory: no labored breathing Auscultation: + crackles (Right base) Cardiovascular: Rate/Rhythm: + irregularly irregular Heart Sounds: + murmur (Grade 2 or 6 systolic no diastolic) Vessels: no JVD Extremities: no edema Chest (Breasts): Chest: + pacemaker Gastrointestinal (Abdomen): normal bowel sounds, soft, nontender, no hepatosplenomegaly Musculoskeletal: no cyanosis or clubbing, extremities motor strength 5/5 Results & Data Vital Signs (Past 12 Hours) Vital Signs Temp Pulse Resp BP Pulse Ox O2 Del Method 03/03/24 12:00 36.6 C 91 H 17 95/67 L 95 Room Air 03/03/24 07:41 36.6 C 81 18 120/79 97 Room Air 03/03/24 02:44 36.4 C L 83 18 120/81 97 Room Air Laboratory Results Laboratory Results - last 24 hr 03/02/24 03/02/24 03/02/24 13:08 14:49 18:31 WBC 7.76 RBC 4.22 L Hgb 12.8 L Hct 39.2 L MCV 92.9 MCH 30.3 MCHC 32.7 RDW Std Deviation 50.2 H RDW Coeff of Adriel 14.7 H Plt Count 154 MPV 11.8 Immature Gran % (Auto) 0.3 Neut % (Auto) 68.1 Lymph % (Auto) 21.9 [place] % (Auto) 7.1 Eos % (Auto) 2.1 Baso % (Auto) 0.5 Neut # (Auto) 5.29 Lymph # (Auto) 1.70 [place] # (Auto) 0.55 Eos # (Auto) 0.16 Baso # (Auto) 0.04 Immature Gran # (Auto) 0.02 PT 10.9 INR 1.0 APTT 24 PTT Ratio 0.9 Heparin Anti-Xa, Unfract Sodium 138 Potassium 4.5 Chloride 104 Carbon Dioxide 27 Anion Gap 7 BUN 36 H Creatinine 1.36 Est Cr Clr Drug Dosing Not Reportable Est GFR ( Amer) 53.8 Est GFR (Non-Af Amer) 46.5 BUN/Creatinine Ratio 26.5 H Glucose 95 POC Glucose 89 Calcium 9.5 Total Bilirubin 0.7 AST 19 ALT 17 Alkaline Phosphatase 98 Troponin I High Sens 17.7 B-Natriuretic Peptide 603 H Total Protein 6.6 Albumin 4.0 Globulin 2.6 Albumin/Globulin Ratio 1.5 Urine Color Yellow Urine Appearance Clear Urine pH 5.5 Ur Specific [place] 1.022 Urine Protein Negative Urine Glucose (UA) Negative Urine Ketones Negative Urine Blood Negative Urine Nitrite Negative Urine Bilirubin Negative Urine Urobilinogen Negative Ur Leukocyte Esterase Negative 03/02/24 03/03/24 03/03/24 20:22 00:19 07:19 WBC 7.73 RBC 3.99 L Hgb 12.1 L Hct 37.0 L MCV 92.7 MCH 30.3 MCHC 32.7 RDW Std Deviation 51.4 H RDW Coeff of Adriel 14.9 H Plt Count 156 MPV 11.8 Immature Gran % (Auto) Neut % (Auto) Lymph % (Auto) [place] % (Auto) Eos % (Auto) Baso % (Auto) Neut # (Auto) Lymph # (Auto) [place] # (Auto) Eos # (Auto) Baso # (Auto) Immature Gran # (Auto) PT INR APTT PTT Ratio Heparin Anti-Xa, Unfract 0.54 Sodium 138 Potassium 4.0 Chloride 105 Carbon Dioxide 27 Anion Gap 6 BUN 30 H Creatinine 1.22 Est Cr Clr Drug Dosing 83.4 Est GFR ( Amer) 61.4 Est GFR (Non-Af Amer) 53.0 BUN/Creatinine Ratio 24.6 H Glucose 92 POC Glucose 147 H Calcium 9.1 Total Bilirubin AST ALT Alkaline Phosphatase Troponin I High Sens B-Natriuretic Peptide Total Protein Albumin Globulin Albumin/Globulin Ratio Urine Color Urine Appearance Urine pH Ur Specific [place] Urine Protein Urine Glucose (UA) Urine Ketones Urine Blood Urine Nitrite Urine Bilirubin Urine Urobilinogen Ur Leukocyte Esterase 03/03/24 03/03/24 07:37 11:46 WBC RBC Hgb Hct MCV MCH MCHC RDW Std Deviation RDW Coeff of Adriel Plt Count MPV Immature Gran % (Auto) Neut % (Auto) Lymph % (Auto) [place] % (Auto) Eos % (Auto) Baso % (Auto) Neut # (Auto) Lymph # (Auto) [place] # (Auto) Eos # (Auto) Baso # (Auto) Immature Gran # (Auto) PT INR APTT PTT Ratio Heparin Anti-Xa, Unfract Sodium Potassium Chloride Carbon Dioxide Anion Gap BUN Creatinine Est Cr Clr Drug Dosing Est GFR ( Amer) Est GFR (Non-Af Amer) BUN/Creatinine Ratio Glucose POC Glucose 92 104 H Calcium Total Bilirubin AST ALT Alkaline Phosphatase Troponin I High Sens B-Natriuretic Peptide Total Protein Albumin Globulin Albumin/Globulin Ratio Urine Color Urine Appearance Urine pH Ur Specific [place] Urine Protein Urine Glucose (UA) Urine Ketones Urine Blood Urine Nitrite Urine Bilirubin Urine Urobilinogen Ur Leukocyte Esterase
--- NOTE | 2024-03-03 15:22 | Electrocardiogram Report ---
Test Reason : Blood Pressure : */* mmHG Vent. Rate : 111 BPM Atrial Rate : 111 BPM P-R Int : 124 ms QRS Dur : 114 ms QT Int : 346 ms P-R-T Axes : * -49 102 degrees QTcB Int : 470 ms Sinus tachycardia Left axis deviation Anterior infarct , age undetermined Abnormal ECG When compared with ECG of 12-Mar-2023 12:39, Sinus rhythm has replaced Electronic ventricular pacemaker Vent. rate has increased by 44 bpm Confirmed by Benjamin Bertrand ([id number]) on 03/03/2024 3:21:55 PM Referred By: REFERRED SELF Confirmed By: Benjamin Bertrand
--- NOTE | 2024-03-03 15:25 | Electrocardiogram Report ---
Test Reason : Blood Pressure : */* mmHG Vent. Rate : 95 BPM Atrial Rate : * BPM P-R Int : * ms QRS Dur : 122 ms QT Int : 376 ms P-R-T Axes : * -48 99 degrees QTcB Int : 472 ms Atrial fibrillation with frequent ventricular-paced complexes Left bundle branch block Abnormal ECG When compared with ECG of 02-Mar-2024 13:59, (unconfirmed) Electronic ventricular pacemaker has replaced Sinus rhythm Confirmed by Benjamin Bertrand ([id number]) on 03/03/2024 3:25:01 PM Referred By: REFERRED SELF Confirmed By: Benjamin Bertrand
--- NOTE | 2024-03-03 15:30 | Electrocardiogram Report ---
Test Reason : Blood Pressure : */* mmHG Vent. Rate : 82 BPM Atrial Rate : 227 BPM P-R Int : * ms QRS Dur : 126 ms QT Int : 386 ms P-R-T Axes : 66 -52 46 degrees QTcB Int : 450 ms Atrial fibrillation with frequent ventricular-paced complexes Left axis deviation Left bundle branch block Abnormal ECG When compared with ECG of 02-Mar-2024 16:12, (unconfirmed) Vent. rate has decreased by 13 bpm Confirmed by Benjamin Bertrand ([id number]) on 03/03/2024 3:30:20 PM Referred By: REFERRED SELF Confirmed By: Benjamin Bertrand
[2024-03-03] MEDS: AMIODARONE 200 MG TAB PO SCH (22:18)
[2024-03-03] MEDS: MELATONIN 3 MG TAB PO PRN (22:20)
[2024-03-04 04:28] LABS: Hematocrit (blood only) 36.7 % (42.0-52.0); Hemoglobin 12.1 g/dl (14.0-18.0); Mean Corpuscular Hemoglobin 30.4 pg (25.0-34.0); Mean Corpuscular Volume 92.2 fL (80.0-100.0); Mean Platelet Volume 11.8 fL (9.4-12.4); Platelet Count 147 K/uL (130-400); RDW Coefficient of Variation 14.7 % (11.5-14.5); RDW Standard Deviation 49.8 fL (36.4-46.3); Red Blood Count 3.98 M/uL (4.70-6.10); White Blood Count 8.01 K/ul (4.8-10.8)
[2024-03-04 04:42] LABS: BUN Creatinine Ratio 23.7 (10-20); Calcium 9.2 mg/dl (8.6-10.3); Creatinine Clr Calc Pharmacy 77.7 ml/min; Est GFR (African American) 56.3 ml/min; Est GFR (Non-African American) 48.6 ml/min; Magnesium 2.1 mg/dl (1.7-2.4); Phosphorus 3.8 mg/dl (2.5-4.9); Potassium 4.1 mmol/L (3.5-5.1)
[2024-03-04 06:13] LABS: ANTI-Xa, UFH(UnfractionatedHep 0.45 IU/ml (0.3-0.7)
--- NOTE | 2024-03-04 10:53 | Hospitalist Progress Note ---
Date of Service March 04, 2024 Assessment & Plan (1) CAD (coronary artery disease), [place] coronary artery: (2) History of heart bypass surgery: (3) History of aortic valve replacement: (4) HLD (hyperlipidemia): (5) T2DM (type 2 diabetes mellitus): (6) History of radical prostatectomy: Plan Mr. Prescott is an 88-year-old male with PMHx of CAD status post bypass with open heart surgery, bovine aortic valve replacement followed by more recent TAVR, AAA measuring 4.5 cm, cardiomegaly, s/p pacemaker with recent detection of atrial fibrillation after interrogation as outpatient. It was noted that one of his episodes lasted over 10 hours. He was also prescribed Eliquis yesterday by cardiology, however the patient had not been made aware of this new prescription. He was also noted that he has been working with PCP to lower the dose of metoprolol XL 25 mg to 12.5 mg daily due to hypotensive episodes which occurred approximately 1 week ago. Patient transitioned to amiodarone and on an oral load at this time TID. Concerns with cost of eliquis--daughter and patient determining next best plan for anticoagulation. Transition to lovenox until determination of eliquis or warfarin is made. If pursing warfarin, will ensure lovenox covered by pharmacy prior to dispo o therwise patient may need to remain inpt while bridging #New onset A-fib with RVR Prior metoprolol dosing discontinued 2/2 hypotension s/p IV amiodarone -Continue 400mg TID oral load Cardiology following, appreciate recommendations Transition to lovenox -$363.85 Eliquis copay, will discuss alternative agents or 1 month free trial -Will finalize AC plan today Monitor on tele #CAD, status post CABG x2- snigh to LAD, SVG to circumflex during AVR 2000 #Chronic Heart failure with preserved EF Elevated BNP iso tachyarrhythmia above Continue daily PO lasix Continue ASA and statin #Severe prosthetic aortic valve stenosis, status post TAVR c/b VT and asystole with PPM implantation #Valvular heart disease, status post open AVR with root reconstruction and coronary bypass in 2000 Continue ASA Monitor BP #HLD #History of TIA 12/2020 Continue ASA and Statin #Type 2 diabetes A1C 6.5 in 01/2024 Hold home metformin, ISS #History of prostate cancer status post radical prostatectomy stable #Presumptive Lyme disease -Was placed on doxycycline on 02/21 for a 1 week course by PCP , course finished DVT ppx: therapeutic lovenox, plans for warfarin v doac to be finalized today with family Lines: PIV x 1 FEN/GI: HH diet CODE: Full Admission and Anticipated Discharge Date Admission Date: March 02, 2024 Subjective Spoke to patient and daughter regarding cost of eliquis v warfarin---will decide shortly Patient otherwise reports feeling well and states he is ready to go home as soon as able. Denies SOB, chest pain/tightness, or palpitations Physical Exam Constitutional: WD/WN, vitals as above Respiratory: normal respiratory effort, lungs clear to auscultation Cardiovascular: irregularly irregular, rate controlled Results & Data Results & Data Vital Signs (Past 12 Hours) Vital Signs Temp Pulse Pulse Resp BP Pulse Ox O2 Del Method 03/04/24 07:19 36.4 C L 90 18 113/80 95 Room Air 03/04/24 04:38 36.6 C 83 18 100/67 94 Room Air 03/04/24 01:04 82 03/04/24 00:11 36.5 C 81 18 117/75 95 Room Air Laboratory Results Short CBC 03/04/24 Range/Units 04:04 WBC 8.01 (4.8-10.8) K/ul Hgb 12.1 L (14.0-18.0) g/dl Hct 36.7 L (42.0-52.0) % Plt Count 147 (130-400) K/uL BMP 03/04/24 04:04 Sodium 137 Potassium 4.1 Chloride 104 Carbon Dioxide 26 BUN 31 H Creatinine 1.31 Glucose 121 H Calcium 9.2 Medications Administered Home Medications Medication Instructions Recorded Confirmed Last Taken atorvastatin 80 mg tablet 80 mg PO HS 04/27/18 03/02/24 03/11/23 bupropion HCl 150 mg tablet,12 hr 150 mg PO Q12 04/27/18 03/02/24 03/12/23 sustained-release metformin 500 mg tablet 500 mg PO QAM 04/27/18 03/02/24 03/02/24 multivitamin 1 tab PO QAM 04/27/18 03/02/24 03/02/24 albuterol sulfate 90 mcg/actuation 2 puff inhalation Q4 PRN Wheezing 04/03/19 03/02/2402/16/19 aerosol inhaler (ProAir HFA) diphenhydramine HCl 25 mg capsule 25 mg PO HS PRN Sleep 04/03/19 03/02/24 04/08/19 (Benadryl) furosemide 20 mg tablet 40 mg PO DAILY 04/03/19 03/02/24 03/02/24 aspirin 81 mg chewable tablet 81 mg PO DAILY 02/12/22 03/02/24 03/02/24 (Children's Aspirin) clindamycin HCl 300 mg capsule 600 mg PO ONCE PRN Prophylaxis 02/12/22 03/02/24 Unknown cyanocobalamin (vitamin B-12) 1,000 mcg sublingual DAILY 02/12/22 03/02/24 03/02/24 1,000 mcg sublingual tablet metoprolol succinate 25 mg 12.5 mg PO DAILY 02/12/22 03/02/24 03/02/24 tablet,extended release 24 hr iron,carbonyl 65 mg-vitamin C 125 1 tab PO .EVERY OTHER DAY 04/20/22 03/02/24 03/12/23 mg tablet,delayed release (Vitron-C) doxycycline hyclate 100 mg capsule 100 mg PO BID 03/02/24 03/02/24 03/02/24 levothyroxine 25 mcg tablet 25 mcg PO HS 03/02/24 03/02/24 Unknown potassium chloride 20 mEq 20 meq PO QAM 03/02/24 03/02/24 03/02/24 tablet,extended release apixaban 5 mg tablet (Eliquis) 5 mg PO UD #30 tabs 03/03/24 Unknown Active Medications Generic Name Dose Route Start Last Admin Trade Name Freq PRN Reason Stop Dose Admin Amiodarone HCl 400 mg 03/03/24 21:00 03/04/24 10:29 Amiodarone 200 Mg Tab PO 04/02/24 20:59 400 mg TID MARY Administration Aspirin 81 mg 03/03/24 09:00 03/04/24 10:29 Aspirin 81 Mg Ectab PO 04/02/24 08:59 81 mg DAILY MARY Administration Atorvastatin Calcium 80 mg 03/02/24 21:00 03/03/24 22:18 Atorvastatin 40 Mg Tab PO 04/01/24 20:59 80 mg HS MARY Administration Benzonatate 100 mg 03/02/24 21:00 03/04/24 10:31 Benzonatate 100 Mg Capsule PO 04/01/24 20:59 Not Given TID MARY Bupropion HCl 150 mg 03/02/24 21:00 03/04/24 10:28 Bupropion Sr 150 Mg Tabcr PO 04/01/24 20:59 150 mg Q12 MARY Administration Cyanocobalamin 1,000 mcg 03/03/24 09:00 03/04/24 10:28 Cyanocobalamin (B-12) 500 Mcg Tablet PO 04/02/24 08:59 1,000 mcg DAILY MARY Administration Furosemide 40 mg 03/03/24 09:00 03/04/24 10:27 Furosemide 40 Mg Tab PO 04/02/24 08:59 40 mg DAILY MARY Administration Heparin Sodium/Dextrose 25,000 units in 500 mls @ 19 mls/hr 03/02/24 18:15 03/04/24 06:52 Heparin Sodium/Dextrose IV 04/01/24 18:14 950 units/hr .Q24H MARY 19 mls/hr Titration Protocol 950 UNITS/HR Insulin Aspart 0 units 03/02/24 17:57 03/04/24 10:42 Insulin Aspart Per Unit Charge SC 04/01/24 17:56 4 units ACHS MARY Administration Levothyroxine Sodium 25 mcg 03/02/24 21:00 03/03/24 22:18 Levothyroxine Sodium 25 Mcg Tablet PO 04/01/24 20:59 25 mcg HS MARY Administration Melatonin 6 mg 03/03/24 20:21 03/03/24 22:20 Melatonin 3 Mg Tab PO 04/02/24 20:20 6 mg HS PRN Administration Sleep Multivitamins 1 tab 03/03/24 09:00 03/04/24 10:28 Multivitamin Tab PO 04/02/24 08:59 1 tab QAM MARY Administration Potassium Chloride 20 meq 03/03/24 09:00 03/04/24 10:27 Potassium Chloride Crtab 20 Meq Tabcr PO 04/02/24 08:59 20 meq QAM MARY Administration
[2024-03-04] MEDS ORDERED: ENOXAPARIN 1 MG/KG SQ SCH (11:00)
[2024-03-04] MEDS: ENOXAPARIN INJ 120 MG/0.8 ML SYR SQ SCH (11:23)
[2024-03-04 11:50] LABS: Prothrombin Time 10.9 Seconds (9.0-12.0)
--- NOTE | 2024-03-04 13:19 | Cardiology Progress Note ---
Date of Service March 04, 2024 Assessment & Plan (1) S/P TAVR (transcatheter aortic valve replacement): (2) New onset a-fib: Plan New AFIB AVR with root reconstruction (2000) [place] [facility] [place]com[place] requiring defibrillation and brief asystole requiring pacing s/p pacemaker 06/2021 CAD -CABG x2 ([place] to LAD SVG to circumflex during AVR (2000) -patent grafts per cardiac cath 2020 Moderate MR HFpEF Hx TIA (12/2020) HLD Hx prostate cancer -s/p radical prostatectomy Aortic root/asc aorta enlargement 4.5/4.4 cm per echo 4.[address] (07/2022) -Heart rate is well controlled, remains in AFIB -Continue amiodarone 400mg 3x daily today, tomorrow decrease to 200mg BID x1 week then 200mg daily. -EKG today without acute changes, will repeat EKG tomorrow to reassess QT interval -Patient appears euvolemic on examination -Continue heparin for now then transition to Eliquis for stroke prophylaxis Case discussed with Dr. Zapata. I spent a total of 30 minutes on the date of service in preparation, delivery, and documentation of the care provided to this patient, excluding any time spent in the performance of separately billed services. Suzi Inman PA-C Department of Cardiology, [facility] This chart was completed in part utilizing Speech Voice Recognition Software. Grammatical errors, random word insertions, pronoun errors, and incomplete sentences are an occasional consequence of this system due to software limitations, ambient noise, and hardware issues. Any formal questions or concerns about the content, text, or information contained within the body of this dictation should be directly addressed to the provider for clarification. Admission and Anticipated Discharge Date Admission Date: March 02, 2024 Supervising Physician Co-Signing Physician Notes I have reviewed the advance practitioner's documentation, and I agree with, and take responsibility for the plan of care. I have personally performed a history and physical examination on the patient. I spent a total of 30 minutes on the date of service in preparation, delivery, and documentation of the care provided to this patient, excluding any time spent in the performance of separately billed service Review of Systems Review of Systems: All systems reviewed & are unremarkable except as noted in HPI & below Physical Exam Constitutional: WD/WN, vitals as above Eyes: PERRL, conjunctivae normal, anicteric sclerae Respiratory: normal respiratory effort, lungs clear to auscultation A uscultation: no crackles, no rales and no wheezes Cardiovascular: RRR, no murmur, no edema Heart Sounds: normal S1 and normal S2; no murmur Vessels: no JVD Extremities: no edema Skin: no rashes, warm and dry Psychiatric: A+Ox3, euthymic affect Results & Data Vital Signs (Past 12 Hours) Vital Signs Temp Pulse Pulse Resp BP Pulse Ox O2 Del Method 03/04/24 11:19 36.7 C 91 H 18 112/68 94 Room Air 03/04/24 07:19 36.4 C L 90 18 113/80 95 Room Air 03/04/24 04:38 36.6 C 83 18 100/67 94 Room Air 03/04/24 01:04 82 Laboratory Results Coagulation 03/04/24 Range/Units 11:08 PT 10.9 (9.0-12.0) Seconds CBC 03/04/24 Range/Units 04:04 WBC 8.01 (4.8-10.8) K/ul RBC 3.98 L (4.70-6.10) M/uL Hgb 12.1 L (14.0-18.0) g/dl Hct 36.7 L (42.0-52.0) % Plt Count 147 (130-400) K/uL Comprehensive Metabolic Panel 03/04/24 Range/Units 04:04 Sodium 137 (136-145) mmol/L Potassium 4.1 (3.5-5.1) mmol/L Chloride 104 (98-107) mmol/L Carbon Dioxide 26 (21-32) mmol/L BUN 31 H (6-23) mg/dl Creatinine 1.31 (0.6-1.4) mg/dl Glucose 121 H (70-99(Fasting)) mg/dl Calcium 9.2 (8.6-10.3) mg/dl Intake and Output 03/03/24 03/04/24 03/04/24 22:59 06:59 14:59 Intake Total 613.284 / 1983.001 470.717 / 1984.001 86.516 / 86.516 Output Total 400 / 1900 400 / 1900 450 / 450 Balance 213.284 / 84.001 70.717 / 84.001 -363.484 / -363.484 Intake: IV 463.284 / 684.001 220.717 / 684.001 86.516 / 86.516 Heparin Sodium/Dextrose 25,000 463.284 / 684.001 220.717 / 684.001 86.516 / 86.516 units In 500 ml @ 950 UNITS/HR 19 mls/hr IV .Q24H MARY Rx#: [id number] Oral 150 / 1300 250 / 1300 Output: Urine 400 / 1900 400 / 1900 450 / 450 Other: Weight 108.7 kg Weight Measurement Method Built in [facility] Diagnostic Findings ECHO 02/23/2024 Lv size normal LV thickness moderately increased septal motion consistent with right ventricular pacemaker, otherwise LV wall motion is normal LVEF 55-59% s/p TAVR with normal systolic gradients. significant valve prosthesis regurgitation is absent moderate mitral regurgitation aortic root mildly enlarged (4.3cm)
[2024-03-04] MEDS: APIXABAN 5 MG TABLET PO SCH (20:39)
[2024-03-05 06:59] LABS: Hematocrit (blood only) 38.9 % (42.0-52.0); Hemoglobin 12.9 g/dl (14.0-18.0); Mean Corpuscular Hemoglobin 30.1 pg (25.0-34.0); Mean Corpuscular Hgb Conc 33.2 g/dL (32.0-36.0); Mean Corpuscular Volume 90.9 fL (80.0-100.0); Mean Platelet Volume 12.4 fL (9.4-12.4); Platelet Count 168 K/uL (130-400); RDW Coefficient of Variation 14.8 % (11.5-14.5); RDW Standard Deviation 49.8 fL (36.4-46.3); Red Blood Count 4.28 M/uL (4.70-6.10)
[2024-03-05 07:22] LABS: Prothrombin Time 10.9 Seconds (9.0-12.0)
[2024-03-05 07:26] LABS: BUN Creatinine Ratio 22.8 (10-20); Calcium 9.4 mg/dl (8.6-10.3); Creatinine Clr Calc Pharmacy 52.2 ml/min; Est GFR (African American) 60.8 ml/min; Est GFR (Non-African American) 52.5 ml/min; Magnesium 2.1 mg/dl (1.7-2.4); Phosphorus 3.8 mg/dl (2.5-4.9); Potassium 4.3 mmol/L (3.5-5.1)
--- NOTE | 2024-03-05 08:10 | Cardiology Progress Note ---
Date of Service March 05, 2024 Assessment & Plan (1) New onset a-fib: (2) Prolonged QT interval: Plan New AFIB -chadsvasc 8 (age, CHF, HTN, TIA, CAD, DM) AVR with root reconstruction (2000) [place] [facility] [place]ABG x2 (2000) Moderate MR HFpEF Hx TIA Hx prostate cancer Aortic root/asc aorta enlargement -Heart rate is well controlled, remains in atrial flutter -EKG today with slightly prolonged QTc -Repeat EKG in the morning -Hold amiodarone 200mg this evening. Plan to restart amiodarone tomorrow 200mg BID x1 week then 200mg daily -Patient appears euvolemic on examination -Continue Eliquis 5mg BID for stroke prophylaxis Case discussed with Dr. Zapata. I spent a total of 28 minutes on the date of service in preparation, delivery, and documentation of the care provided to this patient, excluding any time spent in the performance of separately billed services. Suzi Inman PA-C Department of Cardiology, [facility] This chart was completed in part utilizing Speech Voice Recognition Software. Grammatical errors, random word insertions, pronoun errors, and incomplete sentences are an occasional consequence of this system due to software limitations, ambient noise, and hardware issues. Any formal questions or concern s about the content, text, or information contained within the body of this dictation should be directly addressed to the provider for clarification. Admission and Anticipated Discharge Date Admission Date: March 02, 2024 Supervising Physician Co-Signing Physician Notes I have reviewed the advance practitioner's documentation, and I agree with, and take responsibility for the plan of care. I have personally performed a history and physical examination on the patient. I spent a total of 30 minutes on the date of service in preparation, delivery, and documentation of the care provided to this patient, excluding any time spent in the performance of separately billed service Patient feeling better today. He denies chest pain, dyspnea, or syncope. QTc today estimated at 510 ms. Will hold second dose of amiodarone today. Repeat EKG in the morning. If QT is stable or back at baseline we will plan on using amiodarone 200 mg p.o. daily. Subjective Patient reports feeling well today Tells me he had some mild wheezing this AM that improved with inhaler Denies chest pain, shortness of breath, palpitations Review of Systems Review of Systems: All systems reviewed & are unremarkable except as noted in HPI & below Physical Exam Constitutional: WD/WN, vitals as above Eyes: PERRL, conjunctivae normal, anicteric sclerae Respiratory: normal respiratory effort, lungs clear to auscultation Auscultation: no crackles, no rales and no wheezes Cardiovascular: RRR, no murmur, no edema Heart Sounds: normal S1 and normal S2; no murmur Vessels: no JVD Extremities: no edema Skin: no rashes, warm and dry Psychiatric: A+Ox3, euthymic affect Results & Data Vital Signs (Past 12 Hours) Vital Signs Temp Pulse Pulse Resp BP Pulse Ox O2 Del Method 03/05/24 03:57 36.3 C L 89 18 110/74 96 Room Air 03/04/24 23:30 36.2 C L 94 H 18 105/71 96 Room Air 03/04/24 22:42 97 H 03/04/24 20:06 36.3 C L 95 H 18 115/71 99 Room Air Laboratory Results Coagulation 03/04/24 03/05/24 Range/Units 11:08 06:20 PT 10.9 10.9 (9.0-12.0) Seconds CBC 03/05/24 Range/Units 06:20 WBC 9.10 (4.8-10.8) K/ul RBC 4.28 L (4.70-6.10) M/uL Hgb 12.9 L (14.0-18.0) g/dl Hct 38.9 L (42.0-52.0) % Plt Count 168 (130-400) K/uL Comprehensive Metabolic Panel 03/05/24 Range/Units 06:20 Sodium 138 (136-145) mmol/L Potassium 4.3 (3.5-5.1) mmol/L Chloride 103 (98-107) mmol/L Carbon Dioxide 27 (21-32) mmol/L BUN 28 H (6-23) mg/dl Creatinine 1.23 (0.6-1.4) mg/dl Glucose 118 H (70-99(Fasting)) mg/dl Calcium 9.4 (8.6-10.3) mg/dl Intake and Output 03/04/24 03/05/24 03/05/24 22:59 06:59 14:59 Output Total 800 / 1250 Balance -800 / -483.484 Output: Urine 800 / 1250 Other: # Unmeasured Voids 1 Diagnostic Findings EKG 03/05/2024 atrial flutter LBBB QTc 510 EKG 03/03/2024 AFIB 82bpm LAD LBBB Qtc 450
[2024-03-05] MEDS: AMIODARONE 200 MG TAB PO SCH (09:09)
[2024-03-05] MEDS ORDERED: ALBUTEROL HFA 8 GM INHALER INH PRN (09:33)
[2024-03-05] MEDS: ALBUTEROL HFA 8 GM INHALER INH ONE (10:09)
--- NOTE | 2024-03-05 10:36 | Discharge Summary ---
Discharge Summary Date of Service March 05, 2024 Principal Dx & Hospital Course #1 = Principal Diagnosis (1) CAD (coronary artery disease), [place] coronary artery: (2) History of heart bypass surgery: (3) History of aortic valve replacement: (4) HLD (hyperlipidemia): (5) T2DM (type 2 diabetes mellitus): (6) History of radical prostatectomy: Plan Mr. Prescott is an 88-year-old male with PMHx of CAD status post bypass with open heart surgery, bovine aortic valve replacement followed by more recent TAVR, AAA measuring 4.5 cm, cardiomegaly, s/p pacemaker with recent detection of atrial fibrillation after interrogation as outpatient. It was noted that one of his episodes lasted over 10 hours. He was also prescribed Eliquis yesterday by cardiology, however the patient had not been made aware of this new prescription. He was also noted that he has been working with PCP to lower the dose of metoprolol XL 25 mg to 12.5 mg daily due to hypotensive episodes which occurred approximately 1 week ago. Patient transitioned to amiodarone and on an oral load at this time TID. Concerns with cost of eliquis--daughter and patient determining next best plan for anticoagulation. Transition to lovenox until determination of eliquis or warfarin is made. If pursing warfarin, will ensure lovenox covered by pharmacy prior to dispo otherwise patient may need to remain inpt while bridging #New onset A-fib with RVR Prior metoprolol dosing discontinued 2/2 hypotension s/p IV amiodarone -Continue 400mg TID oral load Cardiology following, appreciate recommendations Transition to lovenox -$363.85 Eliquis copay, will discuss alternative agents or 1 month free trial -Will finalize AC plan today Monitor on tele #CAD, status post CABG x2- singh to LAD, SVG to circumflex during AVR 2000 #Chronic Heart failure with preserved EF Elevated BNP iso tachyarrhythmia above Continue daily PO lasix Continue ASA and statin #Severe prosthetic aortic valve stenosis, status post TAVR c/b VT and asystole with PPM implantation #Valvular heart disease, status post open AVR with root reconstruction and coronary bypass in 2000 Continue ASA Monitor BP #HLD #History of TIA 12/2020 Continue ASA and Statin #Type 2 diabetes A1C 6.5 in 01/2024 Hold home metformin, ISS #History of prostate cancer status post radical prostatectomy stable #Presumptive Lyme disease -Was placed on doxycycline on 02/21 for a 1 week course by PCP , course finished DVT ppx: therapeutic lovenox, plans for warfarin v doac to be finalized today with family Lines: PIV x 1 FEN/GI: HH diet CODE: Full Admission HPI Per Admitting Provider This is an 88-year-old male with PMHx of CAD status post bypass with open heart surgery, bovine aortic valve replacement followed by more recent TAVR, AAA measuring 4.5 cm, cardiomegaly, s/p pacemaker with recent detection of atrial fibrillation after interrogation as outpatient. It was noted that one of his episodes lasted over 10 hours. He was also prescribed Eliquis yesterday by cardiology, however the patient had not been made aware of this new prescription. He was also noted that he has been working with PCP to lower the dose of metoprolol XL 25 mg to 12.5 mg daily due to hypotensive episodes which occurred approximately 1 week ago. At that time of PCP appointment there was no mention of atrial fibrillation, so it is likely that he was in NSR at the time of that dose reduction. Patient states that his main complaint today worsening shortness of breath over the past 1 week. He denies orthopnea. On Wednesday and Wednesday , he did not take metoprolol at all to see if this would help. Then he continued to not feel well, with complaints of having intermittent fleeting retrosternal pain, not associated with shortness of breath, diaphoresis etc. He admits to feeling some intermittent fatigue. Pt denies palpitations, flutter, or other chest pain. He typically ambulates with the use of a cane. Pt lives at home by himself. Daughter, PTARICIA, is present with him at bedside and assists but primarily the patient is his own historian. Other PMHx includes DM type II, history of prostate cancer, depression, anxiety, CKD stage III, history of TIA. Updated Medication List Medication Instructions Recorded Confirmed Type atorvastatin 80 mg tablet 80 mg PO HS 04/27/18 03/02/24 History bupropion HCl 150 mg tablet,12 hr 150 mg PO Q12 04/27/18 03/02/24 History sustained-release metformin 500 mg tablet 500 mg PO QAM 04/27/18 03/02/24 History multivitamin 1 tab PO QAM 04/27/18 03/02/24 History albuterol sulfate 90 mcg/actuation 2 puff inhalation Q4 PRN Wheezing 04/03/19 03/02/24 History aerosol inhaler (ProAir HFA) diphenhydramine HCl 25 mg capsule 25 mg PO HS PRN Sleep 04/03/19 03/02/24 History (Benadryl) furosemide 20 mg tablet 40 mg PO DAILY 04/03/19 03/02/24 History aspirin 81 mg chewable tablet 81 mg PO DAILY 02/12/22 03/02/24 History (Children's Aspirin) clindamycin HCl 300 mg capsule 600 mg PO ONCE PRN Prophylaxis 02/12/22 03/02/24 History cyanocobalamin (vitamin B-12) 1,000 mcg sublingual DAILY 02/12/22 03/02/24 History 1,000 mcg sublingual tablet iron,carbonyl 65 mg-vitamin C 125 1 tab PO .EVERY OTHER DAY 04/20/22 03/02/24 History mg tablet,delayed release (Vitron-C) levothyroxine 25 mcg tablet 25 mcg PO HS 03/02/24 03/02/24 History potassium chloride 20 mEq 20 meq PO QAM 03/02/24 03/02/24 History tablet,extended release apixaban 5 mg tablet (Eliquis) 5 mg PO UD #30 tabs 03/03/24 Rx amiodarone 200 mg tablet 200 mg PO BID #37 tabs 03/05/24 Rx Hospital Stay Data Consultations 03/02/24 15:43 ED Decision to Admit Stat 03/02/24 17:18 Consult Cardiology Routine Diagnostic Imagining Performed 03/02/24 14:07 CT angio chest PE protocol Stat Pending Results Patient Have Any Pending Studies at Discharge: No Discharge Instructions Given to Patient (Per Discharging Provider) You were admitted for atrial fibrillation with rapid ventricular rate. You were also noted to have low blood pressure. You were started on a new medication called Amiodarone. You will start this medication at home with the following directions: Please take Amiodarone 1 tablet (200mg) two times a day for 7 days then transition to 1 tablet daily. Please start taking Eliquis 5mg two times a day for stroke prevention. Please follow up with your Head Swamper as directed.
--- NOTE | 2024-03-05 12:00 | Hospitalist Progress Note ---
Date of Service March 05, 2024 Assessment & Plan (1) CAD (coronary artery disease), [place] coronary artery: (2) History of heart bypass surgery: (3) History of aortic valve replacement: (4) HLD (hyperlipidemia): (5) T2DM (type 2 diabetes mellitus): (6) History of radical prostatectomy: [place] [address] Hospitalist Progress Note Signed Patient: MONY PRESCOTT Admit Date: 03/02/24 MR#: [id number] Att Phy: Naheed Flower MD Acct ID: [id number] Gisselle Phy: Mariza Hill MD Date: 1935 Fam Phy: Age: 88 Location: 4W Sex: M Room/Bed: [facility] cc: ~ *NOTICE TO RECEIVING DEMOCRAT/AGENCY This information is strictly Confidential and protected under [place] law. [place] law prohibits you from making any further disclosure of this information unless further disclosure is expressly permitted by the written consent of the person to whom it pertains or is authorized by law. A general authorization for the release of medical or other information is not sufficient for this purpose. Hospital accepts no responsibility if the information is made available to any other person, INCLUDING THE PATIENT. Date of Service March 04, 2024 Assessment & Plan (1) CAD (coronary artery disease), [place] coronary artery: (2) History of heart bypass surgery: (3) History of aortic valve replacement: (4) HLD (hyperlipidemia): (5) T2DM (type 2 diabetes mellitus): (6) History of radical prostatectomy: Plan Mr. Prescott is an 88-year-old male with PMHx of CAD status post bypass with open heart surgery, bovine aortic valve replacement followed by more recent TAVR, AAA measuring 4.5 cm, cardiomegaly, s/p pacemaker with recent detection of atrial fibrillation after interrogation as outpatient. It was noted that one of his episodes lasted over 10 hours. He was also prescribed Eliquis yesterday by cardiology, however the patient had not been made aware of this new prescription. He was also noted that he has been working with PCP to lower the dose of metoprolol XL 25 mg to 12.5 mg daily due to hypotensive episodes which occurred approximately 1 week ago. Patient transitioned to amiodarone and on an oral load---QTc 510 this am. Will stay additional day for Qtc monitoring and final dispo plans for amiodarone per Cardiology. #Prolonged QTc #New onset A-fib with RVR Prior metoprolol dosing discontinued 2/2 hypotension s/p IV amiodarone -Discontinued 400mg TID oral load -Transitioned to Amiodarone 200mg BID however QtC prolonged this am, therefore evening dose held -Repeat EKG in am Cardiology following, appreciate recommendations Discontinue lovenox -$363.85 Eliquis copay, will discuss alternative agents or 1 month free trial -Patient wishes to start Eliquis -5mg BID Monitor on tele #CAD, status post CABG x2- singh to LAD, SVG to circumflex during AVR 2000 #Chronic Heart failure with preserved EF Elevated BNP iso tachyarrhythmia above Continue daily PO lasix Continue ASA and statin #Severe prosthetic aortic valve stenosis, status post TAVR c/b VT and asystole with PPM implantation #Valvular heart disease, status post open AVR with root reconstruction and coronary bypass in 2000 Continue ASA Monitor BP #HLD #History of TIA 12/2020 Continue ASA and Statin #Type 2 diabetes A1C 6.5 in 01/2024 Hold home metformin, ISS #History of prostate cancer status post radical prostatectomy stable #Presumptive Lyme disease -Was placed on doxycycline on 02/21 for a 1 week course by PCP , course finished DVT ppx: eliquis Lines: PIV x 1 FEN/GI: HH diet CODE: Full Admission and Anticipated Discharge Date Admission Date: March 02, 2024 Subjective Reported a little nasal congestion, often happens with weather changes Denies any new concerns--chest pain or palpitations Denies fevers, chills or other acute concerns Physical Exam Constitutional: WD/WN, vitals as above Respiratory: normal respiratory effort, lungs clear to auscultation Gastrointestinal (Abdomen): normal bowel sounds, soft, nontender, no hepatosplenomegaly Results & Data Results & Data Vital Signs (Past 12 Hours) Vital Signs Temp Pulse Resp BP Pulse Ox O2 Del Method 03/05/24 11:30 36.4 C L 98 H 18 113/79 98 Room Air 03/05/24 10:10 88 16 91 Room Air 03/05/24 09:22 Room Air 03/05/24 08:00 36.4 C L 95 H 18 108/76 96 Room Air 08/18/24 03:57 36.3 C L 89 18 110/74 96 Room Air Laboratory Results Short CBC 03/05/24 Range/Units 06:20 WBC 9.10 (4.8-10.8) K/ul Hgb 12.9 L (14.0-18.0) g/dl Hct 38.9 L (42.0-52.0) % Plt Count 168 (130-400) K/uL BMP 03/05/24 06:20 Sodium 138 Potassium 4.3 Chloride 103 Carbon Dioxide 27 BUN 28 H Creatinine 1.23 Glucose 118 H Calcium 9.4 Medications Administered Home Medications Medication Instructions Recorded Confirmed Last Taken atorvastatin 80 mg tablet 80 mg PO HS 04/27/18 03/02/24 03/11/23 bupropion HCl 150 mg tablet,12 hr 150 mg PO Q12 04/27/18 03/02/24 03/12/23 sustained-release metformin 500 mg tablet 500 mg PO QAM 04/27/18 03/02/24 03/02/24 multivitamin 1 tab PO QAM 04/27/18 03/02/24 03/02/24 albuterol sulfate 90 mcg/actuation 2 puff inhalation Q4 PRN Wheezing 04/03/19 03/02/24 02/16/19 aerosol inhaler (ProAir HFA) diphenhydramine HCl 25 mg capsule 25 mg PO HS PRN Sleep 04/03/19 03/02/24 04/08/19 (Benadryl) furosemide 20 mg tablet 40 mg PO DAILY 04/03/19 03/02/24 03/02/24 aspirin 81 mg chewable tablet 81 mg PO DAILY 02/12/22 03/02/24 03/02/24 (Children's Aspirin) clindamycin HCl 300 mg capsule 600 mg PO ONCE PRN Prophylaxis 02/12/22 03/02/24 Unknown cyanocobalamin (vitamin B-12) 1,000 mcg sublingual DAILY 02/12/22 03/02/24 03/02/24 1,000 mcg sublingual tablet iron,carbonyl 65 mg-vitamin C 125 1 tab PO .EVERY OTHER DAY 04/20/22 03/02/24 03/12/23 mg tablet,delayed release (Vitron-C) levothyroxine 25 mcg tablet 25 mcg PO HS 03/02/24 03/02/24 Unknown potassium chloride 20 mEq 20 meq PO QAM 03/02/24 03/02/24 03/02/24 tablet,extended release apixaban 5 mg tablet (Eliquis) 5 mg PO UD #30 tabs 03/03/24 Unknown amiodarone 200 mg tablet 200 mg PO BID #37 tabs 03/05/24 Unknown Active Medications Generic Name Dose Route Start Last Admin Trade Name Breanna PRN Reason Stop Dose Admin Amiodarone HCl 200 mg 03/05/24 08:15 03/05/24 09:09 Amiodarone 200 Mg Tab PO 04/04/24 08:14 200 mg BIDM MARY Administration Apixaban 5 mg 03/04/24 21:00 03/05/24 09:10 Apixaban 5 Mg Tablet PO 04/03/24 20:59 5 mg BID MARY Administration Aspirin 81 mg 03/03/24 09:00 03/05/24 09:12 Aspirin 81 Mg Ectab PO 04/02/24 08:59 81 mg DAILY MARY Administration Atorvastatin Calcium 80 mg 03/02/24 21:00 03/04/24 20:39 Atorvastatin 40 Mg Tab PO 04/01/24 20:59 80 mg HS MARY Administration Benzonatate 100 mg 03/02/24 21:00 03/05/24 09:11 Benzonatate 100 Mg Capsule PO 04/01/24 20:59 Not Given TID AMRY Bupropion HCl 150 mg 03/02/24 21:00 03/05/24 09:10 Bupropion Sr 150 Mg Tabcr PO 04/01/24 20:59 150 mg Q12 MARY Administration Cyanocobalamin 1,000 mcg 03/03/24 09:00 03/05/24 09:10 Cyanocobalamin (B-12) 500 Mcg Tablet PO 04/02/24 08:59 1,000 mcg DAILY MARY Administration Furosemide 40 mg 03/03/24 09:00 03/05/24 09:40 Furosemide 40 Mg Tab PO 04/02/24 08:59 40 mg DAILY MARY Administration Insulin Aspart 0 units 03/02/24 17:57 03/05/24 09:08 Insulin Aspart Per Unit Charge SC 04/01/24 17:56 6 units ACHS MARY Administration Levothyroxine Sodium 25 mcg 03/02/24 21:00 03/04/24 20:39 Levothyroxine Sodium 25 Mcg Tablet PO 04/01/24 20:59 25 mcg HS MARY Administration Melatonin 6 mg 03/03/24 20:21 03/04/24 22:15 Melatonin 3 Mg Tab PO 04/02/24 20:20 6 mg HS PRN Administration Sleep Multivitamins 1 tab 03/03/24 09:00 03/05/24 09:11 Multivitamin Tab PO 04/02/24 08:59 1 tab QAM MARY Administration Potassium Chloride 20 meq 03/03/24 09:00 03/05/24 09:10 Potassium Chloride Crtab 20 Meq Tabcr PO 04/02/24 08:59 20 meq QAM MARY Administration
--- NOTE | 2024-03-05 12:10 | Electrocardiogram Report ---
Test Reason : Blood Pressure : */* mmHG Vent. Rate : 96 BPM Atrial Rate : 208 BPM P-R Int : * ms QRS Dur : 134 ms QT Int : 404 ms P-R-T Axes : * -47 113 degrees QTcB Int : 510 ms Suspect unspecified pacemaker failure Atrial flutter with variable A-V block Left bundle branch block Abnormal ECG When compared with ECG of 03-Mar-2024 10:41, Atrial flutter has replaced Atrial fibrillation with Electronic ventricular pacemaker Confirmed by Isaiah Smith ([id number]) on 03/05/2024 12:09:53 PM Referred By: REFERRED SELF Confirmed By: Isaiah Smith
[2024-03-06 08:38] LABS: BUN Creatinine Ratio 19.6 (10-20); Creatinine Clr Calc Pharmacy 46.5 ml/min; Est GFR (African American) 52.9 ml/min; Est GFR (Non-African American) 45.6 ml/min; Potassium 4.2 mmol/L (3.5-5.1)
[2024-03-06] MEDS: AMIODARONE 200 MG TAB PO SCH (09:07)
--- NOTE | 2024-03-06 09:40 | Electrocardiogram Report ---
Test Reason : Blood Pressure : */* mmHG Vent. Rate : 88 BPM Atrial Rate : 92 BPM P-R Int : * ms QRS Dur : 126 ms QT Int : 366 ms P-R-T Axes : * -56 159 degrees QTcB Int : 442 ms Atrial flutter with variable A-V block with occasional ventricular-paced complexes Left axis deviation Left bundle branch block Abnormal ECG When compared with ECG of 05-Mar-2024 09:13, ventricular-paced complexes now present Confirmed by Isaiah Smith ([id number]) on 03/06/2024 9:40:52 AM Referred By: REFERRED SELF Confirmed By: Isaiah Smith
--- NOTE | 2024-03-06 09:41 | Cardiology Progress Note ---
Date of Service March 06, 2024 Assessment & Plan (1) New onset a-fib: (2) ASCVD (arteriosclerotic cardiovascular disease): (3) S/P TAVR (transcatheter aortic valve replacement): (4) Status post coronary artery bypass graft: Plan Admission with new onset atrial fibrillation Prior to arrival metoprolol discontinued due to relative hypotension. IV then oral amiodarone received with dosing decreased due to mildly observed QTc prolongation. Continue amiodarone at 200 mg once a day on discharge Continue apixaban (Eliquis) 5 mg twice a day Stable ischemic and valvular heart disease, compensated volume status. Indwelling pacemaker, eliminating concern for bradyarrhythmias Outpatient cardiology follow-up with Dr. Mendosa in 3-4 weeks Admission and Anticipated Discharge Date Admission Date: March 02, 2024 Supervising Physician Co-Signing Physician Notes I have personally performed a history and physical examination on the patient. I have reviewed the advance practitioner's documentation, and I agree with, and take responsibility for the plan of care. 88-year-old male seen and examined at the bedside. Feeling well today. Atrial flutter in the 80s on telemetry. QT interval improved per repeat ECG this a.m. Denies chest pain or shortness of breath. No lightheadedness or dizziness. Continue amiodarone 200 mg daily and apixaban 5 mg twice daily. Outpatient cardiology follow-up in 3 to 4 weeks. Consider referral for external direct- current cardioversion after 4 weeks of uninterrupted anticoagulation. I spent a total of 35 minutes on the date of service in preparation, delivery, and documentation of the care provided to this patient, excluding any time spent in the performance of separately billed services. Subjective Patient seen and examined. Chart, medications, and telemetry reviewed. Feeling OK. No increased fatigue, chest pain, overt palpitations, unusual shortness of breath, or peripheral edema. Telemetry: Atrial fibrillation in the 80's Review of Systems Review of Systems: Complete Review of Systems is as stated above, negative, or noncontributory. Physical Exam Physical Exam: General: A&Ox3. NAD. HENT: Normocephalic. Atraumatic. Eyes: PER. Conjunctiva pink, sclera clear. Neck: No JVD. + Carotid bruits. Heart: Irregularly irregular at 90 bpm. Grade II/ systolic murmur. Lungs: Right mid lung expiratory wheeze. Right lower crackles. Abdomen: +BS. Soft. Nontender. No masses or organomegaly. Extremities: No significant edema. Limited neurological examination is without focal deficits. Pulses: Posterior tibial=2/4. Results & Data Vital Signs (Past 12 Hours) Vital Signs Temp Pulse Pulse Resp BP Pulse Ox O2 Del Method 03/06/24 08:13 36.6 C 95 H 18 130/87 94 Room Air 03/06/24 03:00 36.4 C L 86 16 117/71 96 Room Air 03/05/24 23:50 89 03/05/24 23:41 36.4 C L 87 16 110/71 95 Room Air Laboratory Results Comprehensive Metabolic Panel 03/06/24 Range/Units 07:48 Sodium 137 (136-145) mmol/L Potassium 4.2 (3.5-5.1) mmol/L Chloride 103 (98-107) mmol/L Carbon Dioxide 28 (21-32) mmol/L BUN 27 H (6-23) mg/dl Creatinine 1.38 (0.6-1.4) mg/dl Glucose 116 H (70-99(Fasting)) mg/dl Calcium 9.0 (8.6-10.3) mg/dl Intake and Output 03/05/24 03/06/24 03/06/24 22:59 06:59 14:59 Intake Total 360 / 920 Output Total 300 / 2150 600 / 2150 Balance 60 / -1230 -600 / -1230 Intake: Oral 360 / 920 Output: Urine 300 / 2150 600 / 2150 Other: Weight 108.3 kg Weight Measurement Method Built in [facility] Diagnostic Findings TSH was in normal range just prior to admission LFT's (Total bilirubin 0.7, AST 19, ALT 17, Alk Phos 98) normal on 03/02/2024 March 02, 2024 CXR: No pneumothorax. No pleural effusions. There are low lung volumes. The heart remains mildly enlarged. Left-sided pacemaker poststernotomy changes, and a cardiac valve prosthesis are again noted. There is a tortuous and calcified thoracic aorta. There is mild central pulmonary vascular congestion without overt edema. A few bibasilar linear densities favor subsegmental atelectasis. Otherwise, no focal lung consolidations to suggest a pneumonia. There are old bilateral rib fractures. March 02, 2024 Chest CTA: No pulmonary emboli are identified. Moderate cardiomegaly and extensive coronary artery calcification are again noted. There are mediastinal wires and postoperative findings from bypass grafting as well as a aortic valve prosthesis. 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 Opacification of the thoracic aorta is suboptimal however there is no definite evidence for dissection. There is no pneumothorax or pleural effusion. There is no consolidation to suggest pneumonia. There are no suspicious pulmonary nodules. Old bilateral rib fractures are present. There are no acute thoracic spine fractures. Visualized portions of the upper abdomen are unremarkable Telemetry: Atrial fibrillation with a controlled ventricular response March 06, 2024 EKG: Atrial flutter with variable A-V block with occasional ventricular-paced complexes, left axis deviation, left bundle branch block, QTc 442 ms.
--- NOTE | 2024-03-06 10:26 | Discharge Summary ---
Discharge Summary Date of Service March 06, 2024 Principal Dx & Hospital Course #1 = Principal Diagnosis (1) New onset a-fib: (2) ASCVD (arteriosclerotic cardiovascular disease): (3) T2DM (type 2 diabetes mellitus): (4) History of aortic valve replacement: Plan Patient presented emergency room noted to be in atrial fibrillation with rapid ventricular response. This was complicated by some hypotension. Patient was admitted to the hospital. Cardiology consultation was obtained. He was started on oral anticoagulation with Eliquis. He was loaded with amiodarone for rate control. The patient seemed to tolerate this. He had achieved good control of his heart rate and his blood pressures improved. However his QT C interval was increased. Amiodarone dosing was decreased to once daily. His heart rate remained controlled. Blood pressure stabilized and his QTc interval normalized. On the day of discharge she was tolerating the daily dosing of amiodarone. Tolerating the Eliquis. Other vital signs are stabilized. Electrolytes had stabilized. He be discharged home continue his oral management for his atrial fibrillation and follow-up with cardiology and his PCP as coordinated through their offices. 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 Lungs: Clear to auscultation, decreased, no wheezes rales or rhonchi CV: S1-S2, irregular, systolic murmur Abdomen: Soft, nontender, nondistended Extremities: No significant edema Neuro: No focal deficits Psych: Cooperative, normal mood Updated Medication List Medication Instructions Recorded Confirmed Type atorvastatin 80 mg tablet 80 mg PO HS 04/27/18 03/02/24 History bupropion HCl 150 mg tablet,12 hr 150 mg PO Q12 04/27/18 03/02/24 History sustained-release metformin 500 mg tablet 500 mg PO QAM 04/27/18 03/02/24 History multivitamin 1 tab PO QAM 04/27/18 03/02/24 History albuterol sulfate 90 mcg/actuation 2 puff inhalation Q4 PRN Wheezing 04/03/19 03/02/24 History aerosol inhaler (ProAir HFA) diphenhydramine HCl 25 mg capsule 25 mg PO HS PRN Sleep 04/03/19 03/02/24 History (Benadryl) furosemide 20 mg tablet 40 mg PO DAILY 04/03/19 03/02/24 History aspirin 81 mg chewable tablet 81 mg PO DAILY 02/12/22 03/02/24 History (Children's Aspirin) clindamycin HCl 300 mg capsule 600 mg PO ONCE PRN Prophylaxis 02/12/22 03/02/24 History cyanocobalamin (vitamin B-12) 1,000 mcg sublingual DAILY 02/12/22 03/02/24 History 1,000 mcg sublingual tablet iron,carbonyl 65 mg-vitamin C 125 1 tab PO .EVERY OTHER DAY 04/20/22 03/02/24 History mg tablet,delayed release (Vitron-C) levothyroxine 25 mcg tablet 25 mcg PO HS 03/02/24 03/02/24 History potassium chloride 20 mEq 20 meq PO QAM 03/02/24 03/02/24 History tablet,extended release amiodarone 200 mg tablet 200 mg PO DAILY 30 days #30 tabs 03/06/24 Rx apixaban 5 mg tablet (Eliquis) 5 mg PO BID 30 days #60 tabs 03/06/24 Rx Hospital Stay Data Consultations 03/02/24 15:43 ED Decision to Admit Stat 03/02/24 17:18 Consult Cardiology Routine Diagnostic Imagining Performed Reviewed imaging, laboratory and diagnostic studies. Pertinent findings as belo w. Electrolytes are within normal range CTA of the chest negative for pulmonary embolism EKG done on day of discharge shows atrial flutter controlled ventricular response, QTc interval 442 ms, improved 03/02/24 14:07 CT angio chest PE protocol Stat Pending Results Patient Have Any Pending Studies at Discharge: No Discharge Instructions Given to Patient (Per Discharging Provider) You were admitted for atrial fibrillation with rapid ventricular rate. You were also noted to have low blood pressure. You were started on a new medication called Amiodarone. You will start this medication at home with the following directions: Please take Amiodarone 1 tablet (200mg) two times a day for 7 days then transition to 1 tablet daily. Please start taking Eliquis 5mg two times a day for stroke prevention. Please follow up with your Crystal Report Developer as directed. Total Time Total Time Spent Total Time Spent (In Minutes): 33
[2024-03-06 12:25] VITALS: BP 148/88; PULSE 92; RESP 20; TEMP 97.5; O2SAT 96
== END 2024-03-06 12:45 | disposition home or self-care (01) | DRG 309 ==
LOC: ED 13:45 → 4W 16:23 → SUATTDRO 16:23 → 4W 17:36